=== PATIENT | male | born 1950 | race Caucasian/White ===

== ENCOUNTER → 2018-07-21 | Outpatient (CLI) | payer MEDICARE, BC ==
--- NOTE | 2018-07-21 14:42 | CARD ---
MR#: [id number] Date of Study: 07/21/2018 Ordering Physician: GARY COOMBS, Referring Physician: GARY COOMBS, Tech: Pia Goddard RAHUL APPROVED REPORT EXAM: Two-dimensional and M-mode echocardiogram with Doppler and color Doppler. Other Information Quality : Good INDICATION Light Headed 2D DIMENSIONS RVDd2.2 (2.9-3.5cm)Left Atrium(2D)3.8 (1.6-4.0cm) IVSd1.1 (0.7-1.1cm)Aortic Root(2D)3.1 (2.0-3.7cm) LVDd5.0 (3.9-5.9cm)LVOT Diameter2.0 (1.8-2.4cm) PWd1.0 (0.7-1.1cm)LVDs3.4 (2.5-4.0cm) FS (%) 31.7 %SV70.5 ml LVEF(%)59.4 (>50%) Aortic Valve AoV Peak Monty.156.0cm/sAoV VTI31.1cm AO Peak GR.9.7mmHgLVOT Peak Monty.133.2cm/s AO Mean GR.5mmHgAVA (VMAX)2.56cm2 DION (VTI)2.60cm2 Mitral Valve MV E Fcosnlpi37.3cm/sMV DECEL TNVY056mc MV A Rvxgijtf78.8cm/sE/A Ratio1.0 Tricuspid Valve TR P. Codcllzr013jo/sRAP CJUNIDUN0ryHx TR Peak Gr.96eyPzCXVB46psFy Pulmonary Vein S1 Zsvdihok85.0cm/sD2 Jehceukv48.5cm/s LEFT VENTRICLE The left ventricle is normal size. There is normal left ventricular wall thickness. The left ventricu lar systolic function is normal and the ejection fraction is within normal range. The Ejection Fracti on is 55-60%. There is normal LV segmental wall motion. Transmitral Doppler flow pattern is Grade I-a bnormal relaxation pattern. RIGHT VENTRICLE The right ventricle is normal size. The right ventricular systolic function is normal. ATRIA The left atrium size is normal. The right atrium size is normal. The interatrial septum is intact wit h no evidence for an atrial septal defect or patent foramen ovale as noted on 2-D or Doppler imaging. AORTIC VALVE The aortic valve is calcified but opens well. Doppler and Color Flow revealed no significant aortic r egurgitation. There is no significant aortic valvular stenosis. MITRAL VALVE The mitral valve is calcified but opens well. There is no evidence of mitral valve prolapse. There is no mitral valve stenosis. Doppler and Color Flow revealed no mitral valve regurgitation noted. TRICUSPID VALVE The tricuspid valve is normal in structure and function. Doppler and Color Flow revealed physiologica l tricuspid regurgitation. The PA pressure was estimated at 21 mmHg. There is no tricuspid valve sten osis. PULMONIC VALVE The pulmonic valve is not well visualized. Doppler and Color Flow revealed mild pulmonic valvular reg urgitation. There is no pulmonic valvular stenosis. GREAT VESSELS The aortic root is normal in size. The ascending aorta is normal in size. The IVC is normal in size a nd collapses >50% with inspiration. PERICARDIAL EFFUSION There is no evidence of significant pericardial effusion. Critical Notification Critical Value: No <Conclusion> The left ventricular systolic function is normal and the ejection fraction is within normal range. Th e Ejection Fraction is 55-60%. There is normal LV segmental wall motion. Signed by : Gary Coombs, Electronically Approved : 07/21/2018 14:41:40
== END | disposition home or self-care (01) ==
LOC: ECHO 13:10
PROVIDERS: ATTEND Internal Medicine Cardiovascular Disease
DX: R42 Dizziness and giddiness (principal)
CPT/HCPCS: 93306

== ENCOUNTER 2021-06-22 18:05 | Inpatient (IN) | payer MEDICARE, BC ==
[~2021-06-22] VITALS: Ht 172.7 cm; Wt 89.0 kg
[2021-06-22] MEDS ORDERED: methylPREDNISolone SOD SUCC PF 125 MG/2 ML VIAL. IV ONE (18:15)
[2021-06-22] MEDS ORDERED: ASPIRIN 325 MG TABLET PO ONE (18:15)
[2021-06-22] MEDS ORDERED: ONDANSETRON PF 4 MG/2 ML VIAL. ONE (18:20)
--- NOTE | 2021-06-22 18:21 | PHYS DOC ---
General Adult HPI: HPI: Patient is a 71-year-old male presenting for shortness of breath via EMS. Onset was 3 days ago. Nothing known makes better, physical activity makes worse. Patient's reports he has been "more confused than usual the last few days" without any trauma, falls, changes in home medication or other exposure. Pat ient has been more short of breath with a productive cough. There has been no known sick contacts but is concerned for COVID-19 especially because patient is unvaccinated. On arrival, patient denies being in any pain, just reports ongoing shortness of breath and cough Review of Systems: Review of Systems: Fourteen body systems of review of systems have been reviewed. See HPI for pertinent positives and negative responses, other villasenor all other systems are negative, non-pertinent or non-contributory Heart Score: C/O Chest Pain: No HEART Score for Chest Pain: HEART Score for Chest Pain Response (Comments) Value History Moderately Suspicious 1 ECG Normal 0 Age > 65 2 Risk Factors >3 Risk Factors or Hx CAD 2 Troponin < Normal Limit 0 Total 5 Risk Factors: Risk Factors: DM, Current or recent (<one month) smoker, HTN, HLP, family history of CAD, obesity. Risk Scores: Score 0 - 3: 2.5% MACE over next 6 weeks - Discharge Home Score 4 - 6: 20.3% MACE over next 6 weeks - Admit for Clinical Observation Score 7 - 10: 72.7% MACE over next 6 weeks - Early Invasive Strategies Physical Exam: PE: Constitutional: Age-appropriate, well nourished, moderate respiratory distress on arrival HENT: Normocephalic, atraumatic, bilateral external ears normal, oropharynx moist, no oral exudates, nose normal. Eyes: PERRLA, EOMI, conjunctiva normal, no discharge. Neck: Normal range of motion, no tenderness, supple, no stridor. Cardiovascular: Heart rate regular, sinus rhythm, no murmurs rubs or gallops Lungs & Thorax: Moderate respiratory distress without accessory muscle use. Patient is slightly tachypneic with gross rhonchi present globally Abdomen: Bowel sounds normal, soft, no tenderness, no masses, no pulsatile masses. Nonsurgical abdomen, no peritoneal signs Skin: Warm, dry, no erythema, no rash. Back: No tenderness, no CVA tenderness. Extremities: No tenderness, no cyanosis, no clubbing, ROM intact, no edema. Neurologic: Alert and oriented to person place but not time, cranial nerves II through XII intact, normal motor & sensory function, no focal deficits noted. Psychologic: Odd affect, mood normal, patient's responses appeared slowed Current Patient Data: Labs: Laboratory Tests Test 06/22/21 18:16 06/22/21 18:25 06/22/21 18:26 06/22/21 18:40 White Blood Count 8.1 x10^3/uL Red Blood Count 4.66 x10^6/uL Hemoglobin 14.6 g/dL Hematocrit 42.4 % Mean Corpuscular Volume 91 fL Mean Corpuscular Hemoglobin 31 pg Mean Corpuscular Hemoglobin Concent 35 g/dL Red Cell Distribution Width 13.9 % Platelet Count 149 x10^3/uL Neutrophils (%) (Auto) 84 % Lymphocytes (%) (Auto) 11 % Monocytes (%) (Auto) 5 % Eosinophils (%) (Auto) 0 % Basophils (%) (Auto) 0 % Neutrophils # (Auto) 6.8 x10^3/uL Lymphocytes # (Auto) 0.9 x10^3/uL Monocytes # (Auto) 0.4 x10^3/uL Eosinophils # (Auto) 0.0 x10^3/uL Basophils # (Auto) 0.0 x10^3/uL Sodium Level 138 mmol/L Potassium Level 3.9 mmol/L Chloride Level 101 mmol/L Carbon Dioxide Level 29 mmol/L Anion Gap 8 Blood Urea Nitrogen 14 mg/dL Creatinine 0.9 mg/dL Estimated GFR (Cockcroft-Gault) 82.7 BUN/Creatinine Ratio 16 Glucose Level 115 mg/dL Lactic Acid Level 1.3 mmol/L Calcium Level 8.5 mg/dL Total Bilirubin 0.8 mg/dL Aspartate Amino Transf (AST/SGOT) 118 U/L Alanine Aminotransferase (ALT/SGPT) 83 U/L Alkaline Phosphatase 57 U/L Troponin I Quantitative 0.017 ng/mL C-Reactive Protein, Quantitative 68.5 mg/L KY-Vpy-D-Type Natriuretic Peptide 211 pg/mL Total Protein 6.7 g/dL Albumin 2.9 g/dL Albumin/Globulin Ratio 0.8 Procalcitonin < 0.10 ng/mL O2 Saturation 97 % Arterial Blood pH 7.44 Arterial Blood pCO2 at Patient Temp 34 mmHg Arterial Blood pO2 at Patient Temp 95 mmHg Arterial Blood HCO3 23 mmol/L Arterial Blood Base Excess -1 mmol/L FiO2 100% nrb mask Bedside Venous pH 7.41 Bedside Venous pCO2 43 mmHg Bedside Venous pO2 38 mmHg Venous Blood HCO3 28 mmol/L POC Venous O2 Saturation (Sofía) 72 % Bedside FiO2 21.0 SARS-CoV-2 Antigen (Rapid) Positive Test 06/22/21 19:20 06/22/21 21:20 Urine Collection Type Void Urine Color Zonia Urine Clarity Clear Urine pH 6.0 Urine Specific Nabb >=1.030 Urine Protein 100 mg/dL Urine Glucose (UA) Negative mg/dL Urine Ketones (Stick) Negative mg/dL Urine Blood Small Urine Nitrite Negative Urine Bilirubin Negative Urine Urobilinogen Dipstick 1.0 mg/dL Urine Leukocyte Esterase Negative Urine RBC Rare /HPF Urine WBC Rare /HPF Urine Squamous Epithelial Cells Occ /LPF Urine Bacteria 0 /HPF Urine Mucus Slight /LPF D-Dimer (Cherie) 1.74 ug/mlFEU Current Medications Medications (Trade) Dose Ordered Sig/Beth Route PRN Reason Start Time Stop Time Status Last Admin Dose Admin Methylprednisolone Sodium Succinate (SOLU-Medrol 125MG VIAL) 125 mg 1X ONCE IV 06/22/21 18:15 06/22/21 18:24 DC 06/22/21 18:45 Aspirin (Dunia Aspirin) 325 mg 1X ONCE PO 06/22/21 18:15 06/22/21 18:24 DC 06/22/21 18:44 Ondansetron HCl (Zofran) 4 mg 1X ONCE IVP 06/22/21 18:30 06/22/21 18:31 DC 06/22/21 18:45 Ondansetron HCl (Zofran) 4 mg STK-MED ONCE .ROUTE 06/22/21 18:20 06/22/21 18:20 DC Iohexol (Omnipaque 350 Mg/ml) 100 ml 1X ONCE IV 06/22/21 18:45 06/22/21 18:53 DC 06/22/21 19:10 Info (CONTRAST GIVEN -- Rx MONITORING) 1 each PRN DAILY PRN MC SEE COMMENTS 06/22/21 19:00 06/24/21 18:59 Ceftriaxone Sodium (Rocephin) 1 gm 1X ONCE IVP 06/22/21 19:15 06/22/21 19:16 DC 06/22/21 20:17 Azithromycin 250 ml @ 250 mls/hr 1X ONCE IV 06/22/21 19:15 06/22/21 20:14 DC 06/22/21 20:20 Vital Signs: Vital Signs Date Time Temp Pulse Resp B/P (MAP) Pulse Ox O2 Delivery O2 Flow Rate FiO2 06/22/21 18:05 99.9 80 35 136/70 (92) 95 NonRebreather Mask 15.0 99.9 Vital Signs Date Time Temp Pulse Resp B/P (MAP) Pulse Ox O2 Delivery O2 Flow Rate FiO2 06/23/21 03:00 96.7 62 20 150/77 (101) 95 NonRebreather Mask 15.0 96.7 EKG: EKG: EKG ordered and interpreted by myself at 1817 hrs. as sinus rhythm at 78 bpm, unremarkable intervals, no axis deviation, no acute ischemic findings, no STEMI Radiology/Procedures: Radiology/Procedures: Exam: CT head INDICATION: Shortness of breath with hypoxia TECHNIQUE: Sequential axial images through the head were obtained without the administration of IV contrast. Exposure: One or more of the following in the visualized dose reduction techniques were utilized for this examination: 1. Automated exposure control 2. Adjustment of the MA and/or KV according to patient size 3. Use of iterative of reconstructive technique Comparisons: None FINDINGS: No focal parenchymal lesion or hemorrhage is identified. There is no midline shift or sulcal effacement. Mild small vessel schema change, technically age indeterminate without recent prior imaging. No acute vascular territory infarction is identified. Valenzuela-white distinction is preserved. The ventricular system is within normal limits without compression hydrocephalus. The basal cisterns are well maintained. The visualized portions of the paranasal sinuses and mastoid air cells are well-pneumatized. No acute fractures. IMPRESSION: Mild small vessel ischemic change, technically age indeterminate without recent prior imaging. Electronically signed by: Daniella Coello MD (06/22/2021 7:09 PM) [facility] /////////////////////////////// Exam: CT of chest with contrast INDICATION: Shortness of breath with hypoxia TECHNIQUE: Sequential axial images through the chest obtained following the administration of 100 mL of Omni 350 IV contrast. Sagittal and coronal reformatted images were reconstructed from the axial data and reviewed. 3-D reformatted images were reconstructed from the axial data and reviewed. Exposure: One or more of the following in the visualized dose reduction techniques were utilized for this examination: 1. Automated exposure control 2. Adjustment of the MA and/or KV according to patient size 3. Use of iterative of reconstructive technique Comparisons: Chest x-ray same day FINDINGS: Visualized portions of the thyroid are unremarkable. Numerous prominent mildly enlarged ascending lymph nodes are identified. Heart is enlarged. No pericardial effusion. Moderate coronary calcification. Thoracic aorta has a normal course and caliber. Pulmonary artery is not enlarged. No pulmonary embolus identified within the main, lobar or segmental pulmonary arteries. Airways are patent. No pneumothorax. Extensive ground glass opacity noted in lungs bilaterally predominantly in the periphery of the lungs. No suspicious lung nodules. No pleural effusion or thickening. Bilateral adrenal nodules are noted. No suspicious osseous lesions or acute fractures. IMPRESSION: 1. No pulmonary embolus identified within the main, lobar or segmental pulmonary arteries. 2. Extensive patchy ground glass opacity in lungs bilaterally. Infectious or inflammatory in etiology. Correlate for atypical/viral causes such as Covid Electronically signed by: Daniella Coello MD (06/22/2021 7:18 PM) [facility] /////////////////////// Course & Med Decision Making: Course & Med Decision Making Airway patent, moderate respiratory distress, IV access and vitals obtained concerning for slight tachypnea and hypoxia on room air HPI, physical exam and comprehensive ER work-up concerning for acute respiratory failure with hypoxia due to COVID-19 Patient also found to have bilateral adrenal nodules, likely nonsignificant presenting symptoms but will need to have further investigation I contacted hospitalist and reviewed need for hospital admission, patient accepted for admission I updated patient on proposed plan of care that included hospital admission and he was amenable. All findings disclosed to patient and over the phone. All questions and concerns addressed prior to hospital admission Venkatesh Disclaimer: Venkatesh Disclaimer: This electronic medical record was generated, in whole or in part, using a voice recognition dictation system. Departure Departure Impression: Primary Impression: COVID-19 Additional Impressions: Acute respiratory failure due to COVID-19 Adrenal nodule Disposition: ADMITTED INPATIENT Admitting Physician: ARMANI (DR RAMIREZ) Condition: STABLE Referrals: RAMSES LEE MD (PCP) TAWANDA ANDUJAR DO Jun 22, 2021 18:21
[2021-06-22 18:27] LABS: ISTAT BE VENOUS 3 mmol/L (0-3); ISTAT HCO3 VEN 28 mmol/L (24-28); ISTAT PCO2 VEN 43 mmHg (41-51); ISTAT PH VEN 7.41 (7.32-7.42); ISTAT PO2 VEN 38 mmHg (20-40); ISTAT SAT O2 VEN 72 %; ISTAT TCO2 VEN 29 mmol/L (21-32)
[2021-06-22] MEDS ORDERED: ONDANSETRON PF 4 MG/2 ML VIAL. IVP ONE (18:30)
[2021-06-22 18:32] LABS: BASO % 0 % (0-3); EOS % 0 % (0-3); HEMATOCRIT 42.4 % (39.0-53.0); HEMOGLOBIN 14.6 g/dL (13.0-17.5); LYMPH # 0.9 x10^3/uL (1.0-4.8); LYMPH % 11 % (24-48); MEAN CORPUSCULAR HEMOGLOBIN 31 pg (25-35); MEAN CORPUSCULAR HGB CONC 35 g/dL (31-37); MEAN CORPUSCULAR VOLUME 91 fL (79-100); MONO # 0.4 x10^3/uL (0.0-1.1); MONO % 5 % (0-9); NEUT # 6.8 x10^3/uL (1.8-7.7); NEUT % 84 % (31-73); PLATELET COUNT 149 x10^3/uL (140-400); RED BLOOD COUNT 4.66 x10^6/uL (4.30-5.70); RED CELL DISTRIBUTION WIDTH 13.9 % (11.5-14.5); WHITE BLOOD COUNT 8.1 x10^3/uL (4.0-11.0)
--- NOTE | 2021-06-22 18:32 | EKG ---
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
[2021-06-22 18:41] LABS: BASE EXCESS ABG -1 mmol/L (-3-3); HCO3 ABG 23 mmol/L (21-28); PCO2 ABG 34 mmHg (35-46); PO2 ABG 95 mmHg (65-108); SAT O2 ABG 97 % (92-99)
[2021-06-22 18:44] LABS: CALCIUM 8.5 mg/dL (8.5-10.1); CREATININE 0.9 mg/dL (0.7-1.3); GFR 82.7; POTASSIUM 3.9 mmol/L (3.5-5.1)
[2021-06-22 18:44] LABS: FIO2 ABG 100% NRB MASK
[2021-06-22] MEDS ORDERED: IOHEXOL 350 MG/ML 100 ML VIAL. IV ONE (18:45)
[2021-06-22 18:51] LABS: ALBUMIN 2.9 g/dL (3.4-5.0); ALBUMIN/GLOBULIN RATIO 0.8 (1.0-1.7); TOTAL BILIRUBIN 0.8 mg/dL (0.2-1.0); TOTAL PROTEIN 6.7 g/dL (6.4-8.2)
[2021-06-22] MEDS ORDERED: CONTRAST GIVEN. MC PRN (19:00)
--- NOTE | 2021-06-22 19:12 | RAD ---
Exam: CT head INDICATION: Shortness of breath with hypoxia TECHNIQUE: Sequential axial images through the head were obtained without the administration of IV co ntrast. Exposure: One or more of the following in the visualized dose reduction techniques were utilized for this examination: 1. Automated exposure control 2. Adjustment of the MA and/or KV according to patient size 3. Use of iterative of reconstructive technique Comparisons: None FINDINGS: No focal parenchymal lesion or hemorrhage is identified. There is no midline shift or sulcal effaceme nt. Mild small vessel schema change, technically age indeterminate without recent prior imaging. No acute vascular territory infarction is identified. Valenzuela-white distinction is preserved. The ventricular system is within normal limits without compression hydrocephalus. The basal cisterns are well maintained. The visualized portions of the paranasal sinuses and mastoid air cells are well-pneumatized. No acute fractures. IMPRESSION: Mild small vessel ischemic change, technically age indeterminate without recent prior imaging. Electronically signed by: Daniella Coello MD (06/22/2021 7:09 PM) [facility]
[2021-06-22] MEDS ORDERED: cefTRIAXone IV Push 1 GM VIAL. IVP ONE (19:15)
[2021-06-22] MEDS ORDERED: AZITHRMYCN 500MG IVPB FOR OMNI 250 ML IV ONE (19:15)
--- NOTE | 2021-06-22 19:20 | RAD ---
Exam: CT of chest with contrast INDICATION: Shortness of breath with hypoxia TECHNIQUE: Sequential axial images through the chest obtained following the administration of 100 mL of Omni 350 IV contrast. Sagittal and coronal reformatted images were reconstructed from the axial da ta and reviewed. 3-D reformatted images were reconstructed from the axial data and reviewed. Exposure: One or more of the following in the visualized dose reduction techniques were utilized for this examination: 1. Automated exposure control 2. Adjustment of the MA and/or KV according to patient size 3. Use of iterative of reconstructive technique Comparisons: Chest x-ray same day FINDINGS: Visualized portions of the thyroid are unremarkable. Numerous prominent mildly enlarged ascending lym ph nodes are identified. Heart is enlarged. No pericardial effusion. Moderate coronary calcification. Thoracic aorta has a nor mal course and caliber. Pulmonary artery is not enlarged. No pulmonary embolus identified within the main, lobar or segmental pulmonary arteries. Airways are patent. No pneumothorax. Extensive ground glass opacity noted in lungs bilaterally predom inantly in the periphery of the lungs. No suspicious lung nodules. No pleural effusion or thickening. Bilateral adrenal nodules are noted. No suspicious osseous lesions or acute fractures. IMPRESSION: 1. No pulmonary embolus identified within the main, lobar or segmental pulmonary arteries. 2. Extensive patchy ground glass opacity in lungs bilaterally. Infectious or inflammatory in etiolog y. Correlate for atypical/viral causes such as Covid Electronically signed by: Daniella Coello MD (06/22/2021 7:18 PM) [facility]
[2021-06-22 19:30] LABS: BILIRUBIN,URINE NEGATIVE (NEG); CLARITY,URINE CLEAR; COLOR,URINE AMBER; NITRITE,URINE NEGATIVE (NEG); PROTEIN,URINE 100 mg/dL (NEG-TRACE)
[2021-06-22 19:37] LABS: RBC,URINE RARE /HPF (0-2)
[2021-06-22 19:38] LABS: BACTERIA,URINE 0 /HPF (0-FEW); WBC,URINE RARE /HPF (0-4)
[2021-06-22] MEDS ORDERED: ZOLPIDEM 5 MG TABLET. PO PRN (19:45)
[2021-06-22] MEDS ORDERED: SENNOSIDES 8.6 MG TABLET PO PRN (19:45)
[2021-06-22] MEDS ORDERED: DOCUSATE SODIUM 100 MG CAPSULE. PO PRN (19:45)
[2021-06-22] MEDS ORDERED: ACETAMINOPHEN 325 MG TABLET. PO PRN ×2 (19:45)
[2021-06-22] MEDS ORDERED: ONDANSETRON PF 4 MG/2 ML VIAL. IVP PRN ×2 (19:45)
[2021-06-22] MEDS ORDERED: DEXTROSE 50% 25 GM / 50ML DISP.SYRIN. IV PRN (19:45)
[2021-06-22] MEDS ORDERED: NITROGLYCERIN SUBLINGUAL 0.4 MG BOTTLE OF 25. SL PRN (19:45)
[2021-06-22] MEDS ORDERED: PROCHLORPERAZINE 10 MG/2 ML VIAL. IV PRN (19:45)
--- NOTE | 2021-06-22 19:58 | RAD ---
Exam: Chest one view INDICATION: Shortness of breath with hypoxia TECHNIQUE: Frontal view of the chest Comparisons: None FINDINGS: The cardiomediastinal silhouette and pulmonary vessels are within normal limits. Extensive patchy bilateral airspace disease greater on the right. No pleural effusion. IMPRESSION: Extensive patchy bilateral airspace disease favored to be infectious or inflammatory in etiology. Electronically signed by: Daniella Coello MD (06/22/2021 7:56 PM) [facility]
[2021-06-22 20:50] VITALS: BP 158/74
[2021-06-22] MEDS: THIAMINE 100 MG TABLET. PO SCH (21:39)
[2021-06-22] MEDS: ASCORBIC ACID 1,000 MG TABLET PO SCH (21:39)
[2021-06-22] MEDS: ZINC SULFATE 220 MG CAPSULE. PO SCH (21:39)
[2021-06-22] MEDS: ENOXAPARIN 40 MG/0.4 ML SYRINGE. SQ SCH (21:39)
[2021-06-22] MEDS ORDERED: REMDESIVIR LOAD in IV NORMAL SALINE 250ML TV IV ONE (22:00)
[2021-06-22 23:00] VITALS: BP 123/72
[2021-06-23] MEDS ORDERED: TADA5TAB12 PO (00:01)
[2021-06-23] MEDS ORDERED: ATOR40TA59 PO (00:01)
[2021-06-23] MEDS ORDERED: TAMS0.4C97 PO (00:01)
[2021-06-23 03:00] VITALS: BP 150/77
--- NOTE | 2021-06-23 06:20 | PDOC1 ---
History and Physical Date of Admission Date of Admission DATE: 06/23/21 TIME: 06:07 Identification/Chief Complaint Chief Complaint Shortness of breath Source Source: Chart review, Patient History of Present Illness History of Present Illness Patient is a 71-year-old male with past medical history BPH, HLD, who presents to the ED with complaints of worsening shortness of breath over the past 3 days. He reports associated productive cough and lethargy. At home patient's was concerned due to worsening shortness of breath and noted confusion, so she brought him to the ED for further evaluation. On arrival he was hypoxic on room air, which improved to 95% with 15 L nonrebreather. Labs on admission showed CRP 68.5, AST 118, ALT 83, albumin 2.9, D-dimer 1.74. Chest x-ray showed extensive bilateral patchy airspace disease. CT head showed mild small vessel ischemic changes. CTA chest showed bilateral adrenal nodules, extensive bilateral patchy groundglass changes concerning for viral process, negative for PE. He received steroids and broad-spectrum IV antibiotics in ED. Will admit patient for further medical management. Past Medical History Past Medical History Reviewed with patient but denies significant past medical history Past Surgical History Past Surgical History: No pertinent history Family History Family History: Hypertension Social History Smoke: No ALCOHOL: none Drugs: None Current Problem List Problem List Problems Medical Problems: (1) Acute respiratory failure due to COVID-19 Status: Acute (2) Adrenal nodule Status: Acute (3) COVID-19 Status: Acute Current Medications Current Medications Current Medications Methylprednisolone Sodium Succinate (SOLU-Medrol 125MG VIAL) 125 mg 1X ONCE IV Last administered on 06/22/21at 18:45; Start 06/22/21 at 18:15; Stop 06/22/21 at 18:24; Status DC Aspirin (Dunia Aspirin) 325 mg 1X ONCE PO Last administered on 06/22/21at 18:44; Start 06/22/21 at 18:15; Stop 06/22/21 at 18:24; Status DC Ondansetron HCl (Zofran) 4 mg 1X ONCE IVP Last administered on 06/22/21at 18:45; Start 06/22/21 at 18:30; Stop 06/22/21 at 18:31; Status DC Ondansetron HCl (Zofran) 4 mg STK-MED ONCE .ROUTE ; Start 06/22/21 at 18:20; Stop 06/22/21 at 18:20; Status DC Iohexol (Omnipaque 350 Mg/ml) 100 ml 1X ONCE IV Last administered on 06/22/21at 19:10; Start 06/22/21 at 18:45; Stop 06/22/21 at 18:53; Status DC Info (CONTRAST GIVEN -- Rx MONITORING) 1 each PRN DAILY PRN MC SEE COMMENTS; Start 06/22/21 at 19:00; Stop 06/24/21 at 18:59 Ceftriaxone Sodium (Rocephin) 1 gm 1X ONCE IVP Last administered on 06/22/21at 20:17; Start 06/22/21 at 19:15; Stop 06/22/21 at 19:16; Status DC Azithromycin 250 ml @ 250 mls/hr 1X ONCE IV Last administered on 06/22/21at 20:20; Start 06/22/21 at 19:15; Stop 06/22/21 at 20:14; Status DC Remdesivir 200 mg/ Sodium Chloride 210 ml @ 210 mls/hr 1X ONCE IV Last administered on 06/22/21at 22:21; Start 06/22/21 at 22:00; Stop 06/22/21 at 22:59; Status DC Remdesivir 100 mg/ Sodium Chloride 230 ml @ 460 mls/hr Q24H IV ; Start 06/23/21 at 22:00; Stop 06/26/21 at 22:29 Ascorbic Acid (Vitamin C) 3,000 mg TID PO Last administered on 06/22/21at 21:39; Start 06/22/21 at 21:00 Thiamine Mononitrate (Vitamin B-1) 300 mg DAILY PO Last administered on 06/22/21at 21:39; Start 06/22/21 at 21:00 Zinc Sulfate (Orazinc) 220 mg DAILY PO Last administered on 06/22/21at 21:39; Start 06/22/21 at 21:00 Dexamethasone Sodium Phosphate (Decadron) 6 mg DAILY IVP ; Start 06/23/21 at 09:00 Sennosides (Senna) 17.2 mg PRN BID PRN PO CONSTIPATION; Start 06/22/21 at 19:45 Docusate Sodium (Colace) 100 mg PRN DAILY PRN PO HARD STOOLS; Start 06/22/21 at 19:45 Ondansetron HCl (Zofran) 4 mg PRN Q6HRS PRN IVP NAUSEA/VOMITING; Start 06/22/21 at 19:45 Dextrose (Dextrose 50%-Water Syringe) 12.5 gm PRN Q15MIN PRN IV SEE COMMENTS; Start 06/22/21 at 19:45 Acetaminophen (Tylenol) 650 mg PRN Q4HRS PRN PO TEMP OVER 100.4F OR MILD PAIN Last administered on 06/23/21at 00:22; Start 06/22/21 at 19:45 Lorazepam (Ativan) 0.5 mg PRN Q6HRS PRN PO ANXIETY / AGITATION; Start 06/22/21 at 19:45 Lorazepam (Ativan Inj) 0.25 mg PRN Q4HRS PRN IV ANXIETY / AGITATION; Start 06/22/21 at 19:45 Enoxaparin Sodium (Lovenox 40mg Syringe) 40 mg Q24H SQ Last administered on 06/22/21at 21:39; Start 06/22/21 at 21:00 Pantoprazole Sodium (PROTONIX VIAL for IV PUSH) 40 mg DAILYAC IVP ; Start 06/23/21 at 07:30 Prochlorperazine Edisylate (Compazine) 10 mg PRN Q6HRS PRN IV NAUSEA/VOMITING - 2ND CHOICE; Start 06/22/21 at 19:45 Zolpidem Tartrate (Ambien) 2.5 mg PRN QHS PRN PO INSOMNIA; Start 06/22/21 at 19:45 Ondansetron HCl (Zofran) 4 mg PRN Q8HRS PRN IVP NAUSEA/VOMITING; Start 06/22/21 at 19:45; Stop 06/23/21 at 19:44 Acetaminophen (Tylenol) 650 mg PRN Q4HRS PRN PO FEVER > 100.3'F; Start 06/22/21 at 19:45; Stop 06/23/21 at 19:44 Nitroglycerin (Nitrostat) 0.4 mg PRN Q5MIN PRN SL CHEST PAIN; Start 06/22/21 at 19:45; Stop 06/23/21 at 19:44 Active Scripts Active Reported Tadalafil 5 Mg Tablet 5 Mg PO DAILY Flomax (Tamsulosin Hcl) 0.4 Mg Cap.er.24h 0.4 Mg PO HS Atorvastatin Calcium 40 Mg Tablet 40 Mg PO HS Allergies Allergies: Coded Allergies: No Known Drug Allergies (Unverified , 06/22/21) ROS Review of System GENERAL: No history of weight change, weakness or fevers. SKIN: No bruising, hair changes or rashes. EYES: No blurred, double or loss of vision. NOSE AND THROAT: No history of nosebleeds, hoarseness or sore throat. HEART: Denies chest pain, denies palpitations. LUNGS: Cough and shortness of breath. Denies hemoptysis or wheezing. GASTROINTESTINAL: Denies nausea, vomiting, abdominal pain. GENITOURINARY: Denies dysuria, frequency, urgency, hematuria. NEUROLOGIC: Denies history of numbness, tingling, tremor or weakness. PSYCHIATRIC: Denies anxiety, denies depression. ENDOCRINE: No history of heat or cold intolerance, polyuria or polydipsia. EXTREMITIES: Denies muscle weakness, joint pain, pain on walking or stiffness. Physical Exam Physical Exam General: Alert, Oriented X3, Cooperative, mild distress HEENT: PERRLA, EOMI Lungs: Decreased breath sounds bilaterally. Normal air movement Heart: RRR, no murmurs Cardiovascular: S1, S2 Abdomen: Normal bowel sounds, Soft, No tenderness Extremities: No clubbing, No cyanosis Skin: No rashes, No significant lesion Neuro: Normal speech, Normal tone, Sensation intact Psych/Mental Status: Mental status NL, Mood NL Vitals Vitals Vital Signs Date Time Temp Pulse Resp B/P (MAP) Pulse Ox O2 Delivery O2 Flow Rate FiO2 06/23/21 03:00 96.7 62 20 150/77 (101) 95 NonRebreather Mask 15.0 96.7 Labs Labs Laboratory Tests Test 06/22/21 18:16 06/22/21 18:25 06/22/21 18:26 06/22/21 18:40 White Blood Count 8.1 x10^3/uL (4.0-11.0) Red Blood Count 4.66 x10^6/uL (4.30-5.70) Hemoglobin 14.6 g/dL (13.0-17.5) Hematocrit 42.4 % (39.0-53.0) Mean Corpuscular Volume 91 fL (79-100) Mean Corpuscular Hemoglobin 31 pg (25-35) Mean Corpuscular Hemoglobin Concent 35 g/dL (31-37) Red Cell Distribution Width 13.9 % (11.5-14.5) Platelet Count 149 x10^3/uL (140-400) Neutrophils (%) (Auto) 84 % (31-73) Lymphocytes (%) (Auto) 11 % (24-48) Monocytes (%) (Auto) 5 % (0-9) Eosinophils (%) (Auto) 0 % (0-3) Basophils (%) (Auto) 0 % (0-3) Neutrophils # (Auto) 6.8 x10^3/uL (1.8-7.7) Lymphocytes # (Auto) 0.9 x10^3/uL (1.0-4.8) Monocytes # (Auto) 0.4 x10^3/uL (0.0-1.1) Eosinophils # (Auto) 0.0 x10^3/uL (0.0-0.7) Basophils # (Auto) 0.0 x10^3/uL (0.0-0.2) Sodium Level 138 mmol/L (136-145) Potassium Level 3.9 mmol/L (3.5-5.1) Chloride Level 101 mmol/L (98-107) Carbon Dioxide Level 29 mmol/L (21-32) Anion Gap 8 (6-14) Blood Urea Nitrogen 14 mg/dL (8-26) Creatinine 0.9 mg/dL (0.7-1.3) Estimated GFR (Cockcroft-Gault) 82.7 BUN/Creatinine Ratio 16 (6-20) Glucose Level 115 mg/dL (70-99) Lactic Acid Level 1.3 mmol/L (0.4-2.0) Calcium Level 8.5 mg/dL (8.5-10.1) Total Bilirubin 0.8 mg/dL (0.2-1.0) Aspartate Amino Transf (AST/SGOT) 118 U/L (15-37) Alanine Aminotransferase (ALT/SGPT) 83 U/L (16-63) Alkaline Phosphatase 57 U/L (46-116) Troponin I Quantitative 0.017 ng/mL (0.000-0.055) C-Reactive Protein, Quantitative 68.5 mg/L (0-3.3) NA-Qfp-C-Type Natriuretic Peptide 211 pg/mL (0-124) Total Protein 6.7 g/dL (6.4-8.2) Albumin 2.9 g/dL (3.4-5.0) Albumin/Globulin Ratio 0.8 (1.0-1.7) Procalcitonin < 0.10 ng/mL (0.00-0.10) O2 Saturation 97 % (92-99) Arterial Blood pH 7.44 (7.35-7.45) Arterial Blood pCO2 at Patient Temp 34 mmHg (35-46) Arterial Blood pO2 at Patient Temp 95 mmHg (65-108) Arterial Blood HCO3 23 mmol/L (21-28) Arterial Blood Base Excess -1 mmol/L (-3-3) FiO2 100% nrb mask Bedside Venous pH 7.41 (7.32-7.42) Bedside Venous pCO2 43 mmHg (41-51) Bedside Venous pO2 38 mmHg (20-40) Venous Blood HCO3 28 mmol/L (24-28) POC Venous O2 Saturation (Sofía) 72 % Bedside FiO2 21.0 SARS-CoV-2 Antigen (Rapid) Positive (NEGATIVE) Test 06/22/21 19:20 06/22/21 21:20 Urine Collection Type Void Urine Color Zonia Urine Clarity Clear Urine pH 6.0 (<5.0-8.0) Urine Specific [place] >=1.030 (1.000-1.030) Urine Protein 100 mg/dL (NEG-TRACE) Urine Glucose (UA) Negative mg/dL (NEG) Urine Ketones (Stick) Negative mg/dL (NEG) Urine Blood Small (NEG) Urine Nitrite Negative (NEG) Urine Bilirubin Negative (NEG) Urine Urobilinogen Dipstick 1.0 mg/dL (0.2 mg/dL) Urine Leukocyte Esterase Negative (NEG) Urine RBC Rare /HPF (0-2) Urine WBC Rare /HPF (0-4) Urine Squamous Epithelial Cells Occ /LPF Urine Bacteria 0 /HPF (0-FEW) Urine Mucus Slight /LPF D-Dimer (Cherie) 1.74 ug/mlFEU (0.00-0.50) Laboratory Tests Test 06/22/21 18:16 06/22/21 18:25 06/22/21 18:26 06/22/21 18:40 White Blood Count 8.1 x10^3/uL (4.0-11.0) Red Blood Count 4.66 x10^6/uL (4.30-5.70) Hemoglobin 14.6 g/dL (13.0-17.5) Hematocrit 42.4 % (39.0-53.0) Mean Corpuscular Volume 91 fL (79-100) Mean Corpuscular Hemoglobin 31 pg (25-35) Mean Corpuscular Hemoglobin Concent 35 g/dL (31-37) Red Cell Distribution Width 13.9 % (11.5-14.5) Platelet Count 149 x10^3/uL (140-400) Neutrophils (%) (Auto) 84 % (31-73) Lymphocytes (%) (Auto) 11 % (24-48) Monocytes (%) (Auto) 5 % (0-9) Eosinophils (%) (Auto) 0 % (0-3) Basophils (%) (Auto) 0 % (0-3) Neutrophils # (Auto) 6.8 x10^3/uL (1.8-7.7) Lymphocytes # (Auto) 0.9 x10^3/uL (1.0-4.8) Monocytes # (Auto) 0.4 x10^3/uL (0.0-1.1) Eosinophils # (Auto) 0.0 x10^3/uL (0.0-0.7) Basophils # (Auto) 0.0 x10^3/uL (0.0-0.2) Sodium Level 138 mmol/L (136-145) Potassium Level 3.9 mmol/L (3.5-5.1) Chloride Level 101 mmol/L (98-107) Carbon Dioxide Level 29 mmol/L (21-32) Anion Gap 8 (6-14) Blood Urea Nitrogen 14 mg/dL (8-26) Creatinine 0.9 mg/dL (0.7-1.3) Estimated GFR (Cockcroft-Gault) 82.7 BUN/Creatinine Ratio 16 (6-20) Glucose Level 115 mg/dL (70-99) Lactic Acid Level 1.3 mmol/L (0.4-2.0) Calcium Level 8.5 mg/dL (8.5-10.1) Total Bilirubin 0.8 mg/dL (0.2-1.0) Aspartate Amino Transf (AST/SGOT) 118 U/L (15-37) Alanine Aminotransferase (ALT/SGPT) 83 U/L (16-63) Alkaline Phosphatase 57 U/L (46-116) Troponin I Quantitative 0.017 ng/mL (0.000-0.055) C-Reactive Protein, Quantitative 68.5 mg/L (0-3.3) FD-Qyo-O-Type Natriuretic Peptide 211 pg/mL (0-124) Total Protein 6.7 g/dL (6.4-8.2) Albumin 2.9 g/dL (3.4-5.0) Albumin/Globulin Ratio 0.8 (1.0-1.7) Procalcitonin < 0.10 ng/mL (0.00-0.10) O2 Saturation 97 % (92-99) Arterial Blood pH 7.44 (7.35-7.45) Arterial Blood pCO2 at Patient Temp 34 mmHg (35-46) Arterial Blood pO2 at Patient Temp 95 mmHg (65-108) Arterial Blood HCO3 23 mmol/L (21-28) Arterial Blood Base Excess -1 mmol/L (-3-3) FiO2 100% nrb mask Bedside Venous pH 7.41 (7.32-7.42) Bedside Venous pCO2 43 mmHg (41-51) Bedside Venous pO2 38 mmHg (20-40) Venous Blood HCO3 28 mmol/L (24-28) POC Venous O2 Saturation (Sofía) 72 % Bedside FiO2 21.0 SARS-CoV-2 Antigen (Rapid) Positive (NEGATIVE) Test 06/22/21 19:20 06/22/21 21:20 Urine Collection Type Void Urine Color Zonia Urine Clarity Clear Urine pH 6.0 (<5.0-8.0) Urine Specific [place] >=1.030 (1.000-1.030) Urine Protein 100 mg/dL (NEG-TRACE) Urine Glucose (UA) Negative mg/dL (NEG) Urine Ketones (Stick) Negative mg/dL (NEG) Urine Blood Small (NEG) Urine Nitrite Negative (NEG) Urine Bilirubin Negative (NEG) Urine Urobilinogen Dipstick 1.0 mg/dL (0.2 mg/dL) Urine Leukocyte Esterase Negative (NEG) Urine RBC Rare /HPF (0-2) Urine WBC Rare /HPF (0-4) Urine Squamous Epithelial Cells Occ /LPF Urine Bacteria 0 /HPF (0-FEW) Urine Mucus Slight /LPF D-Dimer (Cherie) 1.74 ug/mlFEU (0.00-0.50) Images Images PATIENT: KEEGAN CAMEJO ACCOUNT: [id number] : 1950 LOCATION: ER AGE: 71 SEX: M EXAM STATUS: REG ER ORD. PHYSICIAN: TAWANDA ANDUJAR DO REASON: shob with hypoxia PROCEDURE: PORTABLE CHEST 1V Exam: Chest one view INDICATION: Shortness of breath with hypoxia TECHNIQUE: Frontal view of the chest Comparisons: None FINDINGS: The cardiomediastinal silhouette and pulmonary vessels are within normal limits. Extensive patchy bilateral airspace disease greater on the right. No pleural effusion. IMPRESSION: Extensive patchy bilateral airspace disease favored to be infectious or inflammatory in etiology. PATIENT: KEEGAN CAMEJO ACCOUNT: [id number] : 1950 LOCATION: ER AGE: 71 SEX: M EXAM STATUS: PRE ER ORD. PHYSICIAN: TAWANDA ANDUJAR DO REASON: shob with hypoxia PROCEDURE: CT HEAD WO CONTRAST Exam: CT head INDICATION: Shortness of breath with hypoxia TECHNIQUE: Sequential axial images through the head were obtained without the administration of IV contrast. Exposure: One or more of the following in the visualized dose reduction techniques were utilized for this examination: 1. Automated exposure control 2. Adjustment of the MA and/or KV according to patient size 3. Use of iterative of reconstructive technique Comparisons: None FINDINGS: No focal parenchymal lesion or hemorrhage is identified. There is no midline shift or sulcal effacement. Mild small vessel schema change, technically age indeterminate without recent prior imaging. No acute vascular territory infarction is identified. Valenzuela-white distinction is preserved. The ventricular system is within normal limits without compression hydroce phalus. The basal cisterns are well maintained. The visualized portions of the paranasal sinuses and mastoid air cells are well- pneumatized. No acute fractures. IMPRESSION: Mild small vessel ischemic change, technically age indeterminate without recent prior imaging. VTE Prophylaxis Ordered VTE Prophylaxis Devices: No VTE Pharmacological Prophylaxi: Yes Assessment/Plan Assessment/Plan Acute respiratory failure with hypoxia COVID-19 pneumonia Bilateral adrenal nodules Plan: Consultation placed to pulmonology We will continue treatment with remdesivir and Decadron We will closely monitor LFTs Empiric antibiotics Supportive care, vitamin C. Resume home medications FEN - Cardiac diet PPX - Lovenox DNR Dispo - inpatient for above Surrogate decision maker is his (Jordan Camejo) Justifications for Admission Other Justification ERIK LIU MD Jun 23, 2021 06:20
[2021-06-23] MEDS ORDERED: hydrALAZINE 20 MG/ML VIAL. IVP PRN (06:30)
[2021-06-23] MEDS ORDERED: traMADol 50 MG TABLET PO PRN (06:30)
[2021-06-23 07:00] VITALS: BP 147/102
[2021-06-23 07:16] LABS: CALCIUM 8.3 mg/dL (8.5-10.1); CREATININE 0.7 mg/dL (0.7-1.3); GFR 110.5; PHOSPHORUS 3.4 mg/dL (2.6-4.7); POTASSIUM 3.7 mmol/L (3.5-5.1)
[2021-06-23 07:20] LABS: BASO % 0 % (0-3); EOS % 0 % (0-3); HEMATOCRIT 43.1 % (39.0-53.0); HEMOGLOBIN 14.9 g/dL (13.0-17.5); LYMPH # 0.9 x10^3/uL (1.0-4.8); LYMPH % 15 % (24-48); MEAN CORPUSCULAR HEMOGLOBIN 31 pg (25-35); MEAN CORPUSCULAR HGB CONC 35 g/dL (31-37); MEAN CORPUSCULAR VOLUME 91 fL (79-100); MONO # 0.2 x10^3/uL (0.0-1.1); MONO % 4 % (0-9); NEUT # 4.8 x10^3/uL (1.8-7.7); NEUT % 81 % (31-73); PLATELET COUNT 157 x10^3/uL (140-400); RED BLOOD COUNT 4.74 x10^6/uL (4.30-5.70); RED CELL DISTRIBUTION WIDTH 13.9 % (11.5-14.5); WHITE BLOOD COUNT 5.9 x10^3/uL (4.0-11.0)
[2021-06-23 07:28] LABS: ALBUMIN 2.7 g/dL (3.4-5.0); DIRECT BILIRUBIN 0.3 mg/dL (0.0-0.2); TOTAL BILIRUBIN 0.5 mg/dL (0.2-1.0)
--- NOTE | 2021-06-23 08:08 | PDOC ---
PULMONARY PROGRESS NOTES DATE: 06/23/21 TIME: 08:08 Vitals Vital Signs Date Time Temp Pulse Resp B/P (MAP) Pulse Ox O2 Delivery O2 Flow Rate FiO2 06/23/21 07:00 97.5 57 17 147/102 (117) 96 Nasal Cannula 8.0 97.5 Labs Laboratory Tests Test 06/22/21 18:16 06/22/21 18:25 06/22/21 18:26 06/22/21 18:40 White Blood Count 8.1 x10^3/uL (4.0-11.0) Red Blood Count 4.66 x10^6/uL (4.30-5.70) Hemoglobin 14.6 g/dL (13.0-17.5) Hematocrit 42.4 % (39.0-53.0) Mean Corpuscular Volume 91 fL (79-100) Mean Corpuscular Hemoglobin 31 pg (25-35) Mean Corpuscular Hemoglobin Concent 35 g/dL (31-37) Red Cell Distribution Width 13.9 % (11.5-14.5) Platelet Count 149 x10^3/uL (140-400) Neutrophils (%) (Auto) 84 % (31-73) Lymphocytes (%) (Auto) 11 % (24-48) Monocytes (%) (Auto) 5 % (0-9) Eosinophils (%) (Auto) 0 % (0-3) Basophils (%) (Auto) 0 % (0-3) Neutrophils # (Auto) 6.8 x10^3/uL (1.8-7.7) Lymphocytes # (Auto) 0.9 x10^3/uL (1.0-4.8) Monocytes # (Auto) 0.4 x10^3/uL (0.0-1.1) Eosinophils # (Auto) 0.0 x10^3/uL (0.0-0.7) Basophils # (Auto) 0.0 x10^3/uL (0.0-0.2) Sodium Level 138 mmol/L (136-145) Potassium Level 3.9 mmol/L (3.5-5.1) Chloride Level 101 mmol/L (98-107) Carbon Dioxide Level 29 mmol/L (21-32) Anion Gap 8 (6-14) Blood Urea Nitrogen 14 mg/dL (8-26) Creatinine 0.9 mg/dL (0.7-1.3) Estimated GFR (Cockcroft-Gault) 82.7 BUN/Creatinine Ratio 16 (6-20) Glucose Level 115 mg/dL (70-99) Lactic Acid Level 1.3 mmol/L (0.4-2.0) Calcium Level 8.5 mg/dL (8.5-10.1) Total Bilirubin 0.8 mg/dL (0.2-1.0) Aspartate Amino Transf (AST/SGOT) 118 U/L (15-37) Alanine Aminotransferase (ALT/SGPT) 83 U/L (16-63) Alkaline Phosphatase 57 U/L (46-116) Troponin I Quantitative 0.017 ng/mL (0.000-0.055) C-Reactive Protein, Quantitative 68.5 mg/L (0-3.3) EV-Tmn-D-Type Natriuretic Peptide 211 pg/mL (0-124) Total Protein 6.7 g/dL (6.4-8.2) Albumin 2.9 g/dL (3.4-5.0) Albumin/Globulin Ratio 0.8 (1.0-1.7) Procalcitonin < 0.10 ng/mL (0.00-0.10) O2 Saturation 97 % (92-99) Arterial Blood pH 7.44 (7.35-7.45) Arterial Blood pCO2 at Patient Temp 34 mmHg (35-46) Arterial Blood pO2 at Patient Temp 95 mmHg (65-108) Arterial Blood HCO3 23 mmol/L (21-28) Arterial Blood Base Excess -1 mmol/L (-3-3) FiO2 100% nrb mask Bedside Venous pH 7.41 (7.32-7.42) Bedside Venous pCO2 43 mmHg (41-51) Bedside Venous pO2 38 mmHg (20-40) Venous Blood HCO3 28 mmol/L (24-28) POC Venous O2 Saturation (Sofía) 72 % Bedside FiO2 21.0 SARS-CoV-2 Antigen (Rapid) Positive (NEGATIVE) Test 06/22/21 19:20 06/22/21 21:20 06/23/21 06:00 Urine Collection Type Void Urine Color Zonia Urine Clarity Clear Urine pH 6.0 (<5.0-8.0) Urine Specific [place] >=1.030 (1.000-1.030) Urine Protein 100 mg/dL (NEG-TRACE) Urine Glucose (UA) Negative mg/dL (NEG) Urine Ketones (Stick) Negative mg/dL (NEG) Urine Blood Small (NEG) Urine Nitrite Negative (NEG) Urine Bilirubin Negative (NEG) Urine Urobilinogen Dipstick 1.0 mg/dL (0.2 mg/dL) Urine Leukocyte Esterase Negative (NEG) Urine RBC Rare /HPF (0-2) Urine WBC Rare /HPF (0-4) Urine Squamous Epithelial Cells Occ /LPF Urine Bacteria 0 /HPF (0-FEW) Urine Mucus Slight /LPF D-Dimer (Cherie) 1.74 ug/mlFEU (0.00-0.50) White Blood Count 5.9 x10^3/uL (4.0-11.0) Red Blood Count 4.74 x10^6/uL (4.30-5.70) Hemoglobin 14.9 g/dL (13.0-17.5) Hematocrit 43.1 % (39.0-53.0) Mean Corpuscular Volume 91 fL (79-100) Mean Corpuscular Hemoglobin 31 pg (25-35) Mean Corpuscular Hemoglobin Concent 35 g/dL (31-37) Red Cell Distribution Width 13.9 % (11.5-14.5) Platelet Count 157 x10^3/uL (140-400) Neutrophils (%) (Auto) 81 % (31-73) Lymphocytes (%) (Auto) 15 % (24-48) Monocytes (%) (Auto) 4 % (0-9) Eosinophils (%) (Auto) 0 % (0-3) Basophils (%) (Auto) 0 % (0-3) Neutrophils # (Auto) 4.8 x10^3/uL (1.8-7.7) Lymphocytes # (Auto) 0.9 x10^3/uL (1.0-4.8) Monocytes # (Auto) 0.2 x10^3/uL (0.0-1.1) Eosinophils # (Auto) 0.0 x10^3/uL (0.0-0.7) Basophils # (Auto) 0.0 x10^3/uL (0.0-0.2) Sodium Level 139 mmol/L (136-145) Potassium Level 3.7 mmol/L (3.5-5.1) Chloride Level 102 mmol/L (98-107) Carbon Dioxide Level 28 mmol/L (21-32) Anion Gap 9 (6-14) Blood Urea Nitrogen 18 mg/dL (8-26) Creatinine 0.7 mg/dL (0.7-1.3) Estimated GFR (Cockcroft-Gault) 110.5 Glucose Level 147 mg/dL (70-99) Calcium Level 8.3 mg/dL (8.5-10.1) Phosphorus Level 3.4 mg/dL (2.6-4.7) Magnesium Level 2.0 mg/dL (1.8-2.4) Total Bilirubin 0.5 mg/dL (0.2-1.0) Direct Bilirubin 0.3 mg/dL (0.0-0.2) Aspartate Amino Transf (AST/SGOT) 100 U/L (15-37) Alanine Aminotransferase (ALT/SGPT) 81 U/L (16-63) Alkaline Phosphatase 55 U/L (46-116) Total Protein 6.0 g/dL (6.4-8.2) Albumin 2.7 g/dL (3.4-5.0) Laboratory Tests Test 06/22/21 18:16 06/22/21 18:25 06/22/21 18:26 06/22/21 18:40 White Blood Count 8.1 x10^3/uL (4.0-11.0) Red Blood Count 4.66 x10^6/uL (4.30-5.70) Hemoglobin 14.6 g/dL (13.0-17.5) Hematocrit 42.4 % (39.0-53.0) Mean Corpuscular Volume 91 fL (79-100) Mean Corpuscular Hemoglobin 31 pg (25-35) Mean Corpuscular Hemoglobin Concent 35 g/dL (31-37) Red Cell Distribution Width 13.9 % (11.5-14.5) Platelet Count 149 x10^3/uL (140-400) Neutrophils (%) (Auto) 84 % (31-73) Lymphocytes (%) (Auto) 11 % (24-48) Monocytes (%) (Auto) 5 % (0-9) Eosinophils (%) (Auto) 0 % (0-3) Basophils (%) (Auto) 0 % (0-3) Neutrophils # (Auto) 6.8 x10^3/uL (1.8-7.7) Lymphocytes # (Auto) 0.9 x10^3/uL (1.0-4.8) Monocytes # (Auto) 0.4 x10^3/uL (0.0-1.1) Eosinophils # (Auto) 0.0 x10^3/uL (0.0-0.7) Basophils # (Auto) 0.0 x10^3/uL (0.0-0.2) Sodium Level 138 mmol/L (136-145) Potassium Level 3.9 mmol/L (3.5-5.1) Chloride Level 101 mmol/L (98-107) Carbon Dioxide Level 29 mmol/L (21-32) Anion Gap 8 (6-14) Blood Urea Nitrogen 14 mg/dL (8-26) Creatinine 0.9 mg/dL (0.7-1.3) Estimated GFR (Cockcroft-Gault) 82.7 BUN/Creatinine Ratio 16 (6-20) Glucose Level 115 mg/dL (70-99) Lactic Acid Level 1.3 mmol/L (0.4-2.0) Calcium Level 8.5 mg/dL (8.5-10.1) Total Bilirubin 0.8 mg/dL (0.2-1.0) Aspartate Amino Transf (AST/SGOT) 118 U/L (15-37) Alanine Aminotransferase (ALT/SGPT) 83 U/L (16-63) Alkaline Phosphatase 57 U/L (46-116) Troponin I Quantitative 0.017 ng/mL (0.000-0.055) C-Reactive Protein, Quantitative 68.5 mg/L (0-3.3) HK-Lmq-K-Type Natriuretic Peptide 211 pg/mL (0-124) Total Protein 6.7 g/dL (6.4-8.2) Albumin 2.9 g/dL (3.4-5.0) Albumin/Globulin Ratio 0.8 (1.0-1.7) Procalcitonin < 0.10 ng/mL (0.00-0.10) O2 Saturation 97 % (92-99) Arterial Blood pH 7.44 (7.35-7.45) Arterial Blood pCO2 at Patient Temp 34 mmHg (35-46) Arterial Blood pO2 at Patient Temp 95 mmHg (65-108) Arterial Blood HCO3 23 mmol/L (21-28) Arterial Blood Base Excess -1 mmol/L (-3-3) FiO2 100% nrb mask Bedside Venous pH 7.41 (7.32-7.42) Bedside Venous pCO2 43 mmHg (41-51) Bedside Venous pO2 38 mmHg (20-40) Venous Blood HCO3 28 mmol/L (24-28) POC Venous O2 Saturation (Sofía) 72 % Bedside FiO2 21.0 SARS-CoV-2 Antigen (Rapid) Positive (NEGATIVE) Test 06/22/21 19:20 06/22/21 21:20 06/23/21 06:00 Urine Collection Type Void Urine Color Zonia Urine Clarity Clear Urine pH 6.0 (<5.0-8.0) Urine Specific [place] >=1.030 (1.000-1.030) Urine Protein 100 mg/dL (NEG-TRACE) Urine Glucose (UA) Negative mg/dL (NEG) Urine Ketones (Stick) Negative mg/dL (NEG) Urine Blood Small (NEG) Urine Nitrite Negative (NEG) Urine Bilirubin Negative (NEG) Urine Urobilinogen Dipstick 1.0 mg/dL (0.2 mg/dL) Urine Leukocyte Esterase Negative (NEG) Urine RBC Rare /HPF (0-2) Urine WBC Rare /HPF (0-4) Urine Squamous Epithelial Cells Occ /LPF Urine Bacteria 0 /HPF (0-FEW) Urine Mucus Slight /LPF D-Dimer (Cherie) 1.74 ug/mlFEU (0.00-0.50) White Blood Count 5.9 x10^3/uL (4.0-11.0) Red Blood Count 4.74 x10^6/uL (4.30-5.70) Hemoglobin 14.9 g/dL (13.0-17.5) Hematocrit 43.1 % (39.0-53.0) Mean Corpuscular Volume 91 fL (79-100) Mean Corpuscular Hemoglobin 31 pg (25-35) Mean Corpuscular Hemoglobin Concent 35 g/dL (31-37) Red Cell Distribution Width 13.9 % (11.5-14.5) Platelet Count 157 x10^3/uL (140-400) Neutrophils (%) (Auto) 81 % (31-73) Lymphocytes (%) (Auto) 15 % (24-48) Monocytes (%) (Auto) 4 % (0-9) Eosinophils (%) (Auto) 0 % (0-3) Basophils (%) (Auto) 0 % (0-3) Neutrophils # (Auto) 4.8 x10^3/uL (1.8-7.7) Lymphocytes # (Auto) 0.9 x10^3/uL (1.0-4.8) Monocytes # (Auto) 0.2 x10^3/uL (0.0-1.1) Eosinophils # (Auto) 0.0 x10^3/uL (0.0-0.7) Basophils # (Auto) 0.0 x10^3/uL (0.0-0.2) Sodium Level 139 mmol/L (136-145) Potassium Level 3.7 mmol/L (3.5-5.1) Chloride Level 102 mmol/L (98-107) Carbon Dioxide Level 28 mmol/L (21-32) Anion Gap 9 (6-14) Blood Urea Nitrogen 18 mg/dL (8-26) Creatinine 0.7 mg/dL (0.7-1.3) Estimated GFR (Cockcroft-Gault) 110.5 Glucose Level 147 mg/dL (70-99) Calcium Level 8.3 mg/dL (8.5-10.1) Phosphorus Level 3.4 mg/dL (2.6-4.7) Magnesium Level 2.0 mg/dL (1.8-2.4) Total Bilirubin 0.5 mg/dL (0.2-1.0) Direct Bilirubin 0.3 mg/dL (0.0-0.2) Aspartate Amino Transf (AST/SGOT) 100 U/L (15-37) Alanine Aminotransferase (ALT/SGPT) 81 U/L (16-63) Alkaline Phosphatase 55 U/L (46-116) Total Protein 6.0 g/dL (6.4-8.2) Albumin 2.7 g/dL (3.4-5.0) Medications Active Scripts Medications Dose Route/Sig Max Daily Dose Days Date Category Tadalafil 5 Mg Tablet 5 Mg PO DAILY 06/23/21 Reported Flomax (Tamsulosin Hcl) 0.4 Mg Cap.er.24h 0.4 Mg PO HS 9/27/21 Reported Atorvastatin Calcium 40 Mg Tablet 40 Mg PO HS 06/23/21 Reported Impression . Full note dictated COVID-19 respiratory failure See orders FOREIGN BYRD MD Jun 23, 2021 08:08
[2021-06-23] MEDS: PANTOPRAZOLE IV PUSH 40 MG VIAL. IVP SCH (08:20)
[2021-06-23] MEDS: ZINC SULFATE 220 MG CAPSULE. PO SCH (08:20)
[2021-06-23] MEDS: AZITHROMYCIN 250 MG TABLET. PO SCH (08:21)
[2021-06-23] MEDS: ASCORBIC ACID 1,000 MG TABLET PO SCH ×3 (08:21→21:42)
[2021-06-23] MEDS: THIAMINE 100 MG TABLET. PO SCH (08:21)
[2021-06-23] MEDS: DEXAMETHASONE SOD PHOS 4 MG/ML VIAL IVP SCH (08:22)
--- NOTE | 2021-06-23 10:58 | NUR ---
SW following. Discussed with RN, pt from home with , 8L (does not use oxygen at home), cardiac diet, gets around fine. COVID-19 positive. RN advised no SW needs at this time. SW will continue to follow.
[2021-06-23 11:00] VITALS: BP 143/88
[2021-06-23 15:00] VITALS: BP 151/74
[2021-06-23] MEDS: cefTRIAXone IV Push 1 GM VIAL. IVP SCH (18:03)
[2021-06-23 19:00] VITALS: BP 150/74
--- NOTE | 2021-06-23 20:52 | CONS ---
DATE OF CONSULTATION: 06/23/2021 ATTENDING PHYSICIAN: Keven Deluna MD REASON FOR CONSULTATION: The patient is seen in pulmonary consultation at the request of Dr. Deluna for hypoxemia. HISTORY OF PRESENT ILLNESS: The patient is a 71-year-old non-vaccinated individual with a 3-day history of increasing shortness of breath, loss of taste and some myalgias. He also had confusion. The patient presented to the emergency room. He has some known contact. His has COVID-19. She was vaccinated. He presented. He had some labs drawn. His SARS-CoV-2 rapid test was positive. His arterial blood gas revealed a pO2 of 95 on nonrebreather. White count was normal. Chest x-ray, compatible with bilateral pulmonary infiltrates. CT angiogram revealed no evidence of pulmonary emboli. There was extensive ground glass opacities. The patient was admitted. PAST MEDICAL HISTORY: Otherwise remarkable for hyperlipidemia. PAST SURGICAL HISTORY: None. FAMILY HISTORY: Hypertension. SOCIAL HISTORY: He does not smoke. REVIEW OF SYSTEMS: As indicated above, otherwise a 10-point system was reviewed and negative. CURRENT MEDICATION: List was reviewed. He is currently receiving remdesivir, Tylenol, vitamin C, aspirin, Zithromax, ceftriaxone, dexamethasone and additional medications. PHYSICAL EXAMINATION: The patient was seen during the COVID-19 viral pandemic. Visual inspection revealed no paroxysmal breathing pattern. The patient was able to complete full sentences. No use of accessory muscles. No significant rashes. LABORATORY DATA: As indicated above. IMPRESSION: 1. Hypoxemic respiratory failure, acute, secondary to COVID-19 viral pneumonia. 2. COVID-19 viral pneumonia. 3. Abnormal x-ray. 4. CTA revealed no evidence of pulmonary emboli. PLAN: 1. Continue current support with oxygen supplementation. 2. Steroids. 3. Remdesivir. 4. Empiric antibiotics. 5. DVT prophylaxis. SLAVA/ERNST DR: Andreia TID: [id number]
[2021-06-23] MEDS: TAMSULOSIN 0.4 MG CAP.ER.24H. PO SCH (21:43)
[2021-06-23] MEDS: LACTOBACILLUS RHAMNOSUS GG 1 CAPSULE. PO SCH (21:43)
[2021-06-23] MEDS: REMDESIVIR 100mg in NORMAL SALINE 250ML X 4 DAYS IV SCH (21:43)
[2021-06-23] MEDS: ATORVASTATIN CALCIUM 40 MG TABLET. PO SCH (21:43)
[2021-06-23] MEDS: ENOXAPARIN 40 MG/0.4 ML SYRINGE. SQ SCH (21:44)
[2021-06-23 23:10] VITALS: BP 143/84
[2021-06-24 03:15] VITALS: BP 146/71
[2021-06-24 07:00] VITALS: BP 128/70
--- NOTE | 2021-06-24 07:32 | PDOC ---
[facility] PROGRESS NOTE Date of Service DOS: DATE: 06/24/21 TIME: 07:21 Chief Complaint Chief Complaint Acute respiratory failure with hypoxia COVID-19 pneumonia Bilateral adrenal nodules Plan: Consultation placed to pulmonology We will continue treatment with remdesivir and Decadron We will closely monitor LFTs Empiric antibiotics Supportive care, vitamin C. Resume home medications FEN - Cardiac diet PPX - Lovenox DNR Dispo - inpatient for above Surrogate decision maker is his (Jordan Farfan) History of Present Illness History of Present Illness Patient is a 71-year-old male with past medical history BPH, HLD, who presents to the ED with complaints of worsening shortness of breath over the past 3 days. He reports associated productive cough and lethargy. At home patient's was concerned due to worsening shortness of breath and noted confusion, so she brought him to the ED for further evaluation. On arrival he was hypoxic on room air, which improved to 95% with 15 L nonrebreather. Labs on admission showed CRP 68.5, AST 118, ALT 83, albumin 2.9, D-dimer 1.74. Chest x-ray showed extensive bilateral patchy airspace disease. CT head showed mild small vessel ischemic changes. CTA chest showed bilateral adrenal nodules, extensive bilateral patchy groundglass changes concerning for viral process, negative for PE. He received steroids and broad-spectrum IV antibiotics in ED. Will admit patient for further medical management. 06/24/2021: Afebrile, resting comfortably in bed, currently breathing on 15 L nasal cannula. Appreciate pulmonology recommendations and management of this patient. We will continue remdesivir to complete 5-day course (last day should be 06/26/2021). Continue steroids for 10-day course, with slow taper. Continue empiric antibiotics. Vitals/I&O Vitals/I&O: Vital Signs Date Time Temp Pulse Resp B/P (MAP) Pulse Ox O2 Delivery O2 Flow Rate FiO2 06/24/21 03:15 98.0 61 23 146/71 (96) 92 Nasal Cannula 8.0 98.0 I & O 06/23/21 06/23/21 06/24/21 15:00 23:00 07:00 Intake Total 0 ml Output Total 150 ml 325 ml Balance -150 ml -325 ml Physical Exam General: Alert, mild distress Heart: Regular rate Lungs: Other (Decreased breath sounds bilaterally) Abdomen: Soft, No tenderness Extremities: No clubbing, No cyanosis Skin: No rashes, No breakdown Assessment and Plan Assessmemt and Plan Problems Medical Problems: (1) Acute respiratory failure due to COVID-19 Status: Acute (2) Adrenal nodule Status: Acute (3) COVID-19 Status: Acute Comment Review of Relevant I have reviewed the following items lisa (where applicable) has been applied. Medications: Current Medications Medications (Trade) Dose Ordered Sig/Beth Route PRN Reason Start Time Stop Time Status Last Admin Dose Admin Remdesivir 100 mg/ Sodium Chloride 230 ml @ 460 mls/hr Q24H IV 06/23/21 22:00 06/26/21 22:29 06/23/21 21:43 Dexamethasone Sodium Phosphate (Decadron) 6 mg DAILY IVP 06/23/21 09:00 06/23/21 08:22 Pantoprazole Sodium (PROTONIX VIAL for IV PUSH) 40 mg DAILYAC IVP 06/23/21 07:30 06/23/21 08:20 Ceftriaxone Sodium (Rocephin) 1 gm Q24H IVP 06/23/21 19:00 06/23/21 18:03 Azithromycin (Zithromax) 250 mg DAILY PO 06/23/21 09:00 06/26/21 09:01 06/23/21 08:21 Atorvastatin Calcium (Lipitor) 40 mg HS PO 06/23/21 21:00 06/23/21 21:43 Tamsulosin HCl (Flomax) 0.4 mg HS PO 06/23/21 21:00 06/23/21 21:43 Lactobacillus Rhamnosus (Culturelle) 1 cap BID PO 06/23/21 21:00 06/23/21 21:43 Justifications for Admission Other Justification ERIK LIU MD Jun 24, 2021 07:32
[2021-06-24 07:58] LABS: CALCIUM 8.3 mg/dL (8.5-10.1); CREATININE 0.7 mg/dL (0.7-1.3); GFR 110.5; MAGNESIUM 2.2 mg/dL (1.8-2.4); POTASSIUM 3.9 mmol/L (3.5-5.1)
[2021-06-24] MEDS: THIAMINE 100 MG TABLET. PO SCH (08:04)
[2021-06-24] MEDS: guaiFENesin/CODEINE 100mg/10mg 5 ML LIQUID PO PRN ×3 (08:04→21:38)
[2021-06-24 08:05] LABS: ALBUMIN 2.5 g/dL (3.4-5.0); DIRECT BILIRUBIN 0.3 mg/dL (0.0-0.2); TOTAL BILIRUBIN 0.8 mg/dL (0.2-1.0); TOTAL PROTEIN 5.6 g/dL (6.4-8.2)
[2021-06-24] MEDS: ASCORBIC ACID 1,000 MG TABLET PO SCH ×3 (08:05→21:36)
[2021-06-24] MEDS: ZINC SULFATE 220 MG CAPSULE. PO SCH (08:05)
[2021-06-24] MEDS: PANTOPRAZOLE IV PUSH 40 MG VIAL. IVP SCH (08:05)
[2021-06-24] MEDS: AZITHROMYCIN 250 MG TABLET. PO SCH (08:05)
[2021-06-24] MEDS: LACTOBACILLUS RHAMNOSUS GG 1 CAPSULE. PO SCH ×2 (08:05→21:36)
[2021-06-24] MEDS: DEXAMETHASONE SOD PHOS 4 MG/ML VIAL IVP SCH (08:06)
[2021-06-24 08:10] LABS: BASO % 0 % (0-3); EOS % 0 % (0-3); HEMATOCRIT 42.3 % (39.0-53.0); HEMOGLOBIN 14.6 g/dL (13.0-17.5); LYMPH # 1.4 x10^3/uL (1.0-4.8); LYMPH % 11 % (24-48); MEAN CORPUSCULAR HEMOGLOBIN 32 pg (25-35); MEAN CORPUSCULAR HGB CONC 35 g/dL (31-37); MEAN CORPUSCULAR VOLUME 92 fL (79-100); MONO # 0.8 x10^3/uL (0.0-1.1); MONO % 6 % (0-9); NEUT # 10.6 x10^3/uL (1.8-7.7); NEUT % 83 % (31-73); PLATELET COUNT 186 x10^3/uL (140-400); RED BLOOD COUNT 4.61 x10^6/uL (4.30-5.70); WHITE BLOOD COUNT 12.7 x10^3/uL (4.0-11.0)
--- NOTE | 2021-06-24 10:21 | PDOC ---
PULMONARY PROGRESS NOTES DATE: 06/24/21 TIME: 10:19 Subjective NO SOA ON 15 LITRES o2 Vitals Vital Signs Date Time Temp Pulse Resp B/P (MAP) Pulse Ox O2 Delivery O2 Flow Rate FiO2 06/24/21 07:00 98.8 65 26 128/70 (89) 90 Nasal Cannula 15.0 98.8 General: Alert, No acute distress Lungs: Other (Decreased breath sounds bilaterally) Cardiovascular: S1 Abdomen: Soft Neuro Exam: Alert Extremities: No Edema Skin: Warm Labs Laboratory Tests Test 06/22/21 18:16 06/22/21 18:25 06/22/21 18:26 06/22/21 18:40 White Blood Count 8.1 x10^3/uL (4.0-11.0) Red Blood Count 4.66 x10^6/uL (4.30-5.70) Hemoglobin 14.6 g/dL (13.0-17.5) Hematocrit 42.4 % (39.0-53.0) Mean Corpuscular Volume 91 fL (79-100) Mean Corpuscular Hemoglobin 31 pg (25-35) Mean Corpuscular Hemoglobin Concent 35 g/dL (31-37) Red Cell Distribution Width 13.9 % (11.5-14.5) Platelet Count 149 x10^3/uL (140-400) Neutrophils (%) (Auto) 84 % (31-73) Lymphocytes (%) (Auto) 11 % (24-48) Monocytes (%) (Auto) 5 % (0-9) Eosinophils (%) (Auto) 0 % (0-3) Basophils (%) (Auto) 0 % (0-3) Neutrophils # (Auto) 6.8 x10^3/uL (1.8-7.7) Lymphocytes # (Auto) 0.9 x10^3/uL (1.0-4.8) Monocytes # (Auto) 0.4 x10^3/uL (0.0-1.1) Eosinophils # (Auto) 0.0 x10^3/uL (0.0-0.7) Basophils # (Auto) 0.0 x10^3/uL (0.0-0.2) Sodium Level 138 mmol/L (136-145) Potassium Level 3.9 mmol/L (3.5-5.1) Chloride Level 101 mmol/L (98-107) Carbon Dioxide Level 29 mmol/L (21-32) Anion Gap 8 (6-14) Blood Urea Nitrogen 14 mg/dL (8-26) Creatinine 0.9 mg/dL (0.7-1.3) Estimated GFR (Cockcroft-Gault) 82.7 BUN/Creatinine Ratio 16 (6-20) Glucose Level 115 mg/dL (70-99) Lactic Acid Level 1.3 mmol/L (0.4-2.0) Calcium Level 8.5 mg/dL (8.5-10.1) Total Bilirubin 0.8 mg/dL (0.2-1.0) Aspartate Amino Transf (AST/SGOT) 118 U/L (15-37) Alanine Aminotransferase (ALT/SGPT) 83 U/L (16-63) Alkaline Phosphatase 57 U/L (46-116) Troponin I Quantitative 0.017 ng/mL (0.000-0.055) C-Reactive Protein, Quantitative 68.5 mg/L (0-3.3) PA-Fen-Y-Type Natriuretic Peptide 211 pg/mL (0-124) Total Protein 6.7 g/dL (6.4-8.2) Albumin 2.9 g/dL (3.4-5.0) Albumin/Globulin Ratio 0.8 (1.0-1.7) Procalcitonin < 0.10 ng/mL (0.00-0.10) O2 Saturation 97 % (92-99) Arterial Blood pH 7.44 (7.35-7.45) Arterial Blood pCO2 at Patient Temp 34 mmHg (35-46) Arterial Blood pO2 at Patient Temp 95 mmHg (65-108) Arterial Blood HCO3 23 mmol/L (21-28) Arterial Blood Base Excess -1 mmol/L (-3-3) FiO2 100% nrb mask Bedside Venous pH 7.41 (7.32-7.42) Bedside Venous pCO2 43 mmHg (41-51) Bedside Venous pO2 38 mmHg (20-40) Venous Blood HCO3 28 mmol/L (24-28) POC Venous O2 Saturation (Sofía) 72 % Bedside FiO2 21.0 SARS-CoV-2 Antigen (Rapid) Positive (NEGATIVE) Test 06/22/21 19:20 06/22/21 21:20 06/23/21 06:00 06/24/21 07:20 Urine Collection Type Void Urine Color Zonia Urine Clarity Clear Urine pH 6.0 (<5.0-8.0) Urine Specific [place] >=1.030 (1.000-1.030) Urine Protein 100 mg/dL (NEG-TRACE) Urine Glucose (UA) Negative mg/dL (NEG) Urine Ketones (Stick) Negative mg/dL (NEG) Urine Blood Small (NEG) Urine Nitrite Negative (NEG) Urine Bilirubin Negative (NEG) Urine Urobilinogen Dipstick 1.0 mg/dL (0.2 mg/dL) Urine Leukocyte Esterase Negative (NEG) Urine RBC Rare /HPF (0-2) Urine WBC Rare /HPF (0-4) Urine Squamous Epithelial Cells Occ /LPF Urine Bacteria 0 /HPF (0-FEW) Urine Mucus Slight /LPF D-Dimer (Cherie) 1.74 ug/mlFEU (0.00-0.50) White Blood Count 5.9 x10^3/uL (4.0-11.0) 12.7 x10^3/uL (4.0-11.0) Red Blood Count 4.74 x10^6/uL (4.30-5.70) 4.61 x10^6/uL (4.30-5.70) Hemoglobin 14.9 g/dL (13.0-17.5) 14.6 g/dL (13.0-17.5) Hematocrit 43.1 % (39.0-53.0) 42.3 % (39.0-53.0) Mean Corpuscular Volume 91 fL (79-100) 92 fL (79-100) Mean Corpuscular Hemoglobin 31 pg (25-35) 32 pg (25-35) Mean Corpuscular Hemoglobin Concent 35 g/dL (31-37) 35 g/dL (31-37) Red Cell Distribution Width 13.9 % (11.5-14.5) 14.0 % (11.5-14.5) Platelet Count 157 x10^3/uL (140-400) 186 x10^3/uL (140-400) Neutrophils (%) (Auto) 81 % (31-73) 83 % (31-73) Lymphocytes (%) (Auto) 15 % (24-48) 11 % (24-48) Monocytes (%) (Auto) 4 % (0-9) 6 % (0-9) Eosinophils (%) (Auto) 0 % (0-3) 0 % (0-3) Basophils (%) (Auto) 0 % (0-3) 0 % (0-3) Neutrophils # (Auto) 4.8 x10^3/uL (1.8-7.7) 10.6 x10^3/uL (1.8-7.7) Lymphocytes # (Auto) 0.9 x10^3/uL (1.0-4.8) 1.4 x10^3/uL (1.0-4.8) Monocytes # (Auto) 0.2 x10^3/uL (0.0-1.1) 0.8 x10^3/uL (0.0-1.1) Eosinophils # (Auto) 0.0 x10^3/uL (0.0-0.7) 0.0 x10^3/uL (0.0-0.7) Basophils # (Auto) 0.0 x10^3/uL (0.0-0.2) 0.0 x10^3/uL (0.0-0.2) Sodium Level 139 mmol/L (136-145) 140 mmol/L (136-145) Potassium Level 3.7 mmol/L (3.5-5.1) 3.9 mmol/L (3.5-5.1) Chloride Level 102 mmol/L (98-107) 105 mmol/L (98-107) Carbon Dioxide Level 28 mmol/L (21-32) 28 mmol/L (21-32) Anion Gap 9 (6-14) 7 (6-14) Blood Urea Nitrogen 18 mg/dL (8-26) 23 mg/dL (8-26) Creatinine 0.7 mg/dL (0.7-1.3) 0.7 mg/dL (0.7-1.3) Estimated GFR (Cockcroft-Gault) 110.5 110.5 Glucose Level 147 mg/dL (70-99) 115 mg/dL (70-99) Calcium Level 8.3 mg/dL (8.5-10.1) 8.3 mg/dL (8.5-10.1) Phosphorus Level 3.4 mg/dL (2.6-4.7) Magnesium Level 2.0 mg/dL (1.8-2.4) 2.2 mg/dL (1.8-2.4) Total Bilirubin 0.5 mg/dL (0.2-1.0) 0.8 mg/dL (0.2-1.0) Direct Bilirubin 0.3 mg/dL (0.0-0.2) 0.3 mg/dL (0.0-0.2) Aspartate Amino Transf (AST/SGOT) 100 U/L (15-37) 69 U/L (15-37) Alanine Aminotransferase (ALT/SGPT) 81 U/L (16-63) 83 U/L (16-63) Alkaline Phosphatase 55 U/L (46-116) 50 U/L (46-116) Total Protein 6.0 g/dL (6.4-8.2) 5.6 g/dL (6.4-8.2) Albumin 2.7 g/dL (3.4-5.0) 2.5 g/dL (3.4-5.0) Laboratory Tests Test 06/24/21 07:20 White Blood Count 12.7 x10^3/uL (4.0-11.0) Red Blood Count 4.61 x10^6/uL (4.30-5.70) Hemoglobin 14.6 g/dL (13.0-17.5) Hematocrit 42.3 % (39.0-53.0) Mean Corpuscular Volume 92 fL (79-100) Mean Corpuscular Hemoglobin 32 pg (25-35) Mean Corpuscular Hemoglobin Concent 35 g/dL (31-37) Red Cell Distribution Width 14.0 % (11.5-14.5) Platelet Count 186 x10^3/uL (140-400) Neutrophils (%) (Auto) 83 % (31-73) Lymphocytes (%) (Auto) 11 % (24-48) Monocytes (%) (Auto) 6 % (0-9) Eosinophils (%) (Auto) 0 % (0-3) Basophils (%) (Auto) 0 % (0-3) Neutrophils # (Auto) 10.6 x10^3/uL (1.8-7.7) Lymphocytes # (Auto) 1.4 x10^3/uL (1.0-4.8) Monocytes # (Auto) 0.8 x10^3/uL (0.0-1.1) Eosinophils # (Auto) 0.0 x10^3/uL (0.0-0.7) Basophils # (Auto) 0.0 x10^3/uL (0.0-0.2) Sodium Level 140 mmol/L (136-145) Potassium Level 3.9 mmol/L (3.5-5.1) Chloride Level 105 mmol/L (98-107) Carbon Dioxide Level 28 mmol/L (21-32) Anion Gap 7 (6-14) Blood Urea Nitrogen 23 mg/dL (8-26) Creatinine 0.7 mg/dL (0.7-1.3) Estimated GFR (Cockcroft-Gault) 110.5 Glucose Level 115 mg/dL (70-99) Calcium Level 8.3 mg/dL (8.5-10.1) Magnesium Level 2.2 mg/dL (1.8-2.4) Total Bilirubin 0.8 mg/dL (0.2-1.0) Direct Bilirubin 0.3 mg/dL (0.0-0.2) Aspartate Amino Transf (AST/SGOT) 69 U/L (15-37) Alanine Aminotransferase (ALT/SGPT) 83 U/L (16-63) Alkaline Phosphatase 50 U/L (46-116) Total Protein 5.6 g/dL (6.4-8.2) Albumin 2.5 g/dL (3.4-5.0) Medications Active Scripts Medications Dose Route/Sig Max Daily Dose Days Date Category Tadalafil 5 Mg Tablet 5 Mg PO DAILY 06/23/21 Reported Flomax (Tamsulosin Hcl) 0.4 Mg Cap.er.24h 0.4 Mg PO HS 06/23/21 Reported Atorvastatin Calcium 40 Mg Tablet 40 Mg PO HS 06/23/21 Reported Comments CTA chest reviewed COVID pneumonia Impression . 1. Acute hypoxemic respiratory failure, acute, secondary to COVID-19 viral pneumonia. 2. COVID-19 viral pneumonia. 3. Abnormal x-ray. 4. CTA revealed no evidence of pulmonary emboli. 5. non smoker Plan . PLAN: 1. Continue current support with oxygen supplementation. 2. Steroids. 3. Remdesivir. 4. Empiric antibiotics. 5. DVT prophylaxis. DEANN LINDSAY MD Jun 24, 2021 10:21
[2021-06-24 11:00] VITALS: BP 156/76
[2021-06-24 15:00] VITALS: BP 156/76
[2021-06-24] MEDS: cefTRIAXone IV Push 1 GM VIAL. IVP SCH (18:36)
[2021-06-24 19:00] VITALS: BP 151/78
[2021-06-24] MEDS: TAMSULOSIN 0.4 MG CAP.ER.24H. PO SCH (21:36)
[2021-06-24] MEDS: ENOXAPARIN 40 MG/0.4 ML SYRINGE. SQ SCH (21:36)
[2021-06-24] MEDS: ATORVASTATIN CALCIUM 40 MG TABLET. PO SCH (21:36)
[2021-06-24] MEDS: REMDESIVIR 100mg in NORMAL SALINE 250ML X 4 DAYS IV SCH (21:37)
[2021-06-24] MEDS: LORazepam 0.5 MG TABLET PO PRN (21:46)
[2021-06-24 23:26] VITALS: BP 167/79
[2021-06-25 03:31] VITALS: BP 142/68
--- NOTE | 2021-06-25 05:07 | NUR ---
Pt's O2 sats in low 80's earlier in shift. Placed 15L NRB with 15L NC and sats from 91-94% for most of shift. Does desat to low 80's when up to use urinal but slowly recovers. Educated pt on use of IS and went over plan of care. Will continue to closely monitor.
[2021-06-25 07:00] VITALS: BP 154/79
[2021-06-25] MEDS: ASCORBIC ACID 1,000 MG TABLET PO SCH ×3 (09:04→23:47)
[2021-06-25] MEDS: THIAMINE 100 MG TABLET. PO SCH (09:04)
[2021-06-25] MEDS: ZINC SULFATE 220 MG CAPSULE. PO SCH (09:04)
[2021-06-25] MEDS: LACTOBACILLUS RHAMNOSUS GG 1 CAPSULE. PO SCH ×2 (09:04→23:47)
[2021-06-25] MEDS: AZITHROMYCIN 250 MG TABLET. PO SCH (09:04)
[2021-06-25] MEDS: PANTOPRAZOLE 40 MG TABLET.DR. PO SCH (09:04)
[2021-06-25] MEDS: DEXAMETHASONE SOD PHOS 4 MG/ML VIAL IVP SCH (09:05)
--- NOTE | 2021-06-25 10:05 | PDOC ---
PULMONARY PROGRESS NOTES DATE: 06/25/21 TIME: 10:04 Subjective Patient has some shortness of breath with exertion. ON 15 LITRES o2 Vitals Vital Signs Date Time Temp Pulse Resp B/P (MAP) Pulse Ox O2 Delivery O2 Flow Rate FiO2 06/25/21 07:00 98.2 62 22 154/79 (104) 96 Nasal Cannula 15.0 98.2 General: Alert, No acute distress Lungs: Other (Decreased breath sounds bilaterally) Cardiovascular: S1 Abdomen: Soft Neuro Exam: Alert Extremities: No Edema Skin: Warm Labs Laboratory Tests Test 06/24/21 07:20 White Blood Count 12.7 x10^3/uL (4.0-11.0) Red Blood Count 4.61 x10^6/uL (4.30-5.70) Hemoglobin 14.6 g/dL (13.0-17.5) Hematocrit 42.3 % (39.0-53.0) Mean Corpuscular Volume 92 fL (79-100) Mean Corpuscular Hemoglobin 32 pg (25-35) Mean Corpuscular Hemoglobin Concent 35 g/dL (31-37) Red Cell Distribution Width 14.0 % (11.5-14.5) Platelet Count 186 x10^3/uL (140-400) Neutrophils (%) (Auto) 83 % (31-73) Lymphocytes (%) (Auto) 11 % (24-48) Monocytes (%) (Auto) 6 % (0-9) Eosinophils (%) (Auto) 0 % (0-3) Basophils (%) (Auto) 0 % (0-3) Neutrophils # (Auto) 10.6 x10^3/uL (1.8-7.7) Lymphocytes # (Auto) 1.4 x10^3/uL (1.0-4.8) Monocytes # (Auto) 0.8 x10^3/uL (0.0-1.1) Eosinophils # (Auto) 0.0 x10^3/uL (0.0-0.7) Basophils # (Auto) 0.0 x10^3/uL (0.0-0.2) Sodium Level 140 mmol/L (136-145) Potassium Level 3.9 mmol/L (3.5-5.1) Chloride Level 105 mmol/L (98-107) Carbon Dioxide Level 28 mmol/L (21-32) Anion Gap 7 (6-14) Blood Urea Nitrogen 23 mg/dL (8-26) Creatinine 0.7 mg/dL (0.7-1.3) Estimated GFR (Cockcroft-Gault) 110.5 Glucose Level 115 mg/dL (70-99) Calcium Level 8.3 mg/dL (8.5-10.1) Magnesium Level 2.2 mg/dL (1.8-2.4) Total Bilirubin 0.8 mg/dL (0.2-1.0) Direct Bilirubin 0.3 mg/dL (0.0-0.2) Aspartate Amino Transf (AST/SGOT) 69 U/L (15-37) Alanine Aminotransferase (ALT/SGPT) 83 U/L (16-63) Alkaline Phosphatase 50 U/L (46-116) Total Protein 5.6 g/dL (6.4-8.2) Albumin 2.5 g/dL (3.4-5.0) Medications Active Scripts Medications Dose Route/Sig Max Daily Dose Days Date Category Tadalafil 5 Mg Tablet 5 Mg PO DAILY 06/23/21 Reported Flomax (Tamsulosin Hcl) 0.4 Mg Cap.er.24h 0.4 Mg PO HS 06/23/21 Reported Atorvastatin Calcium 40 Mg Tablet 40 Mg PO HS 06/23/21 Reported Comments CTA chest reviewed COVID pneumonia Impression . 1. Acute hypoxemic respiratory failure, acute, secondary to COVID-19 viral pneumonia. 2. COVID-19 viral pneumonia. 3. Abnormal x-ray. 4. CTA revealed no evidence of pulmonary emboli. 5. non smoker Plan . PLAN: 1. Continue current support with oxygen supplementation. 15 L high flow cannula. 2. Steroids. 3. Remdesivir. 4. Empiric antibiotics. 5. DVT prophylaxis. 6. Monitor respiratory status closely DEANN LINDSAY MD Jun 25, 2021 10:05
[2021-06-25 11:00] VITALS: BP 141/72
[2021-06-25 11:15] LABS: BASO % 0 % (0-3); EOS % 0 % (0-3); HEMATOCRIT 43.4 % (39.0-53.0); LYMPH % 9 % (24-48); MEAN CORPUSCULAR HEMOGLOBIN 32 pg (25-35); MEAN CORPUSCULAR HGB CONC 35 g/dL (31-37); MEAN CORPUSCULAR VOLUME 92 fL (79-100); MONO # 0.8 x10^3/uL (0.0-1.1); MONO % 7 % (0-9); NEUT # 9.7 x10^3/uL (1.8-7.7); NEUT % 84 % (31-73); PLATELET COUNT 218 x10^3/uL (140-400); RED BLOOD COUNT 4.72 x10^6/uL (4.30-5.70); RED CELL DISTRIBUTION WIDTH 13.8 % (11.5-14.5); WHITE BLOOD COUNT 11.6 x10^3/uL (4.0-11.0)
[2021-06-25 11:38] LABS: CALCIUM 8.1 mg/dL (8.5-10.1); CREATININE 0.8 mg/dL (0.7-1.3); GFR 94.8; MAGNESIUM 2.3 mg/dL (1.8-2.4); POTASSIUM 4.2 mmol/L (3.5-5.1)
[2021-06-25 11:44] LABS: ALBUMIN 2.7 g/dL (3.4-5.0); DIRECT BILIRUBIN 0.4 mg/dL (0.0-0.2); TOTAL BILIRUBIN 1.1 mg/dL (0.2-1.0); TOTAL PROTEIN 5.8 g/dL (6.4-8.2)
[2021-06-25 15:00] VITALS: BP 147/77
--- NOTE | 2021-06-25 15:49 | PDOC ---
[facility] PROGRESS NOTE Date of Service DOS: DATE: 06/25/21 TIME: 15:47 Chief Complaint Chief Complaint Acute respiratory failure with hypoxia COVID-19 pneumonia Bilateral adrenal nodules Plan: Consultation placed to pulmonology We will continue treatment with remdesivir and Decadron We will closely monitor LFTs Empiric antibiotics Supportive care, vitamin C. Resume home medications FEN - Cardiac diet PPX - Lovenox DNR Dispo - inpatient for above Surrogate decision maker is his (Jordan Farfan) History of Present Illness History of Present Illness Patient is a 71-year-old male with past medical history BPH, HLD, who presents to the ED with complaints of worsening shortness of breath over the past 3 days. He reports associated productive cough and lethargy. At home patient's was concerned due to worsening shortness of breath and noted confusion, so she brought him to the ED for further evaluation. On arrival he was hypoxic on room air, which improved to 95% with 15 L nonrebreather. Labs on admission showed CRP 68.5, AST 118, ALT 83, albumin 2.9, D-dimer 1.74. Chest x-ray showed extensive bilateral patchy airspace disease. CT head showed mild small vessel ischemic changes. CTA chest showed bilateral adrenal nodules, extensive bilateral patchy groundglass changes concerning for viral process, negative for PE. He received steroids and broad-spectrum IV antibiotics in ED. Will admit patient for further medical management. 06/24/2021: Afebrile, resting comfortably in bed, currently breathing on 15 L nasal cannula. Appreciate pulmonology recommendations and management of this patient. We will continue remdesivir to complete 5-day course (last day should be 06/26/2021). Continue steroids for 10-day course, with slow taper. Continue empiric antibiotics. 06/25/2021: Afebrile. Still breathing on 15 L nasal cannula. Last day remdesivir should be tomorrow. Continue empiric antibiotics. Continue steroids to complete a 10-day course with slow taper. Vitals/I&O Vitals/I&O: Vital Signs Date Time Temp Pulse Resp B/P (MAP) Pulse Ox O2 Delivery O2 Flow Rate FiO2 06/25/21 15:00 98.5 70 26 147/77 (100) 97 Nasal Cannula 15.0 98.5 I & O 9/06/24/21 06/25/21 15:00 23:00 07:00 Intake Total 120 ml 230 ml Output Total 175 ml 200 ml 250 ml Balance -55 ml 30 ml -250 ml Physical Exam General: Alert, mild distress Heart: Regular rate Lungs: Other (Decreased breath sounds bilaterally) Abdomen: Soft, No tenderness Extremities: No clubbing, No cyanosis Skin: No rashes, No breakdown Labs Labs: Laboratory Tests Test 06/25/21 10:35 White Blood Count 11.6 x10^3/uL (4.0-11.0) Red Blood Count 4.72 x10^6/uL (4.30-5.70) Hemoglobin 15.0 g/dL (13.0-17.5) Hematocrit 43.4 % (39.0-53.0) Mean Corpuscular Volume 92 fL (79-100) Mean Corpuscular Hemoglobin 32 pg (25-35) Mean Corpuscular Hemoglobin Concent 35 g/dL (31-37) Red Cell Distribution Width 13.8 % (11.5-14.5) Platelet Count 218 x10^3/uL (140-400) Neutrophils (%) (Auto) 84 % (31-73) Lymphocytes (%) (Auto) 9 % (24-48) Monocytes (%) (Auto) 7 % (0-9) Eosinophils (%) (Auto) 0 % (0-3) Basophils (%) (Auto) 0 % (0-3) Neutrophils # (Auto) 9.7 x10^3/uL (1.8-7.7) Lymphocytes # (Auto) 1.0 x10^3/uL (1.0-4.8) Monocytes # (Auto) 0.8 x10^3/uL (0.0-1.1) Eosinophils # (Auto) 0.0 x10^3/uL (0.0-0.7) Basophils # (Auto) 0.0 x10^3/uL (0.0-0.2) Sodium Level 141 mmol/L (136-145) Potassium Level 4.2 mmol/L (3.5-5.1) Chloride Level 105 mmol/L (98-107) Carbon Dioxide Level 30 mmol/L (21-32) Anion Gap 6 (6-14) Blood Urea Nitrogen 22 mg/dL (8-26) Creatinine 0.8 mg/dL (0.7-1.3) Estimated GFR (Cockcroft-Gault) 94.8 Glucose Level 103 mg/dL (70-99) Calcium Level 8.1 mg/dL (8.5-10.1) Magnesium Level 2.3 mg/dL (1.8-2.4) Total Bilirubin 1.1 mg/dL (0.2-1.0) Direct Bilirubin 0.4 mg/dL (0.0-0.2) Aspartate Amino Transf (AST/SGOT) 47 U/L (15-37) Alanine Aminotransferase (ALT/SGPT) 76 U/L (16-63) Alkaline Phosphatase 57 U/L (46-116) Total Protein 5.8 g/dL (6.4-8.2) Albumin 2.7 g/dL (3.4-5.0) Assessment and Plan Assessmemt and Plan Problems Medical Problems: (1) Acute respiratory failure due to COVID-19 Status: Acute (2) Adrenal nodule Status: Acute (3) COVID-19 Status: Acute Comment Review of Relevant I have reviewed the following items lisa (where applicable) has been applied. Medications: Current Medications Medications (Trade) Dose Ordered Sig/Beth Route PRN Reason Start Time Stop Time Status Last Admin Dose Admin Pantoprazole Sodium (Protonix) 40 mg DAILYAC PO 06/25/21 07:30 06/25/21 09:04 Justifications for Admission Other Justification ERIK LIU MD Jun 25, 2021 15:49
[2021-06-25] MEDS: cefTRIAXone IV Push 1 GM VIAL. IVP SCH (18:30)
[2021-06-25 19:00] VITALS: BP 155/79
[2021-06-25 22:51] VITALS: BP 160/76
[2021-06-25] MEDS: ATORVASTATIN CALCIUM 40 MG TABLET. PO SCH (23:47)
[2021-06-25] MEDS: ENOXAPARIN 40 MG/0.4 ML SYRINGE. SQ SCH (23:47)
[2021-06-25] MEDS: TAMSULOSIN 0.4 MG CAP.ER.24H. PO SCH (23:47)
[2021-06-25] MEDS: REMDESIVIR 100mg in NORMAL SALINE 250ML X 4 DAYS IV SCH (23:48)
[2021-06-26 02:59] VITALS: BP 162/67
--- NOTE | 2021-06-26 06:14 | PDOC ---
[facility] PROGRESS NOTE Date of Service DOS: DATE: 06/26/21 TIME: 06:12 Chief Complaint Chief Complaint Acute respiratory failure with hypoxia COVID-19 pneumonia Bilateral adrenal nodules Plan: Consultation placed to pulmonology We will continue treatment with remdesivir and Decadron We will closely monitor LFTs Empiric antibiotics Supportive care, vitamin C. Resume home medications FEN - Cardiac diet PPX - Lovenox DNR Dispo - inpatient for above Surrogate decision maker is his (Jordan Farfan) History of Present Illness History of Present Illness Patient is a 71-year-old male with past medical history BPH, HLD, who presents to the ED with complaints of worsening shortness of breath over the past 3 days. He reports associated productive cough and lethargy. At home patient's was concerned due to worsening shortness of breath and noted confusion, so she brought him to the ED for further evaluation. On arrival he was hypoxic on room air, which improved to 95% with 15 L nonrebreather. Labs on admission showed CRP 68.5, AST 118, ALT 83, albumin 2.9, D-dimer 1.74. Chest x-ray showed extensive bilateral patchy airspace disease. CT head showed mild small vessel ischemic changes. CTA chest showed bilateral adrenal nodules, extensive bilateral patchy groundglass changes concerning for viral process, negative for PE. He received steroids and broad-spectrum IV antibiotics in ED. Will admit patient for further medical management. 06/24/2021: Afebrile, resting comfortably in bed, currently breathing on 15 L nasal cannula. Appreciate pulmonology recommendations and management of this patient. We will continue remdesivir to complete 5-day course (last day should be 06/26/2021). Continue steroids for 10-day course, with slow taper. Continue empiric antibiotics. 06/25/2021: Afebrile. Still breathing on 15 L nasal cannula. Last day remdesivir should be tomorrow. Continue empiric antibiotics. Continue steroids to complete a 10-day course with slow taper. 06/26/2021: Afebrile, requiring 15 L nonrebreather. Last dose of remdesivir yesterday. Continue empiric antibiotics and steroids to complete 10-day course (will begin slow Decadron taper 07/03) continue supportive care. Vitals/I&O Vitals/I&O: Vital Signs Date Time Temp Pulse Resp B/P (MAP) Pulse Ox O2 Delivery O2 Flow Rate FiO2 06/26/21 02:59 97.7 63 18 162/67 (98) 93 NonRebreather Mask 15.0 97.7 I & O 06/25/21 06/25/21 06/26/21 15:00 23:00 07:00 Intake Total 480 ml 240 ml Output Total 300 ml Balance 480 ml 240 ml -300 ml Physical Exam General: Alert, No acute distress Heart: Regular rate Lungs: Other (Decreased breath sounds bilaterally) Abdomen: Soft, No tenderness Extremities: No clubbing, No cyanosis Skin: No rashes, No breakdown Labs Labs: Laboratory Tests Test 06/25/21 10:35 White Blood Count 11.6 x10^3/uL (4.0-11.0) Red Blood Count 4.72 x10^6/uL (4.30-5.70) Hemoglobin 15.0 g/dL (13.0-17.5) Hematocrit 43.4 % (39.0-53.0) Mean Corpuscular Volume 92 fL (79-100) Mean Corpuscular Hemoglobin 32 pg (25-35) Mean Corpuscular Hemoglobin Concent 35 g/dL (31-37) Red Cell Distribution Width 13.8 % (11.5-14.5) Platelet Count 218 x10^3/uL (140-400) Neutrophils (%) (Auto) 84 % (31-73) Lymphocytes (%) (Auto) 9 % (24-48) Monocytes (%) (Auto) 7 % (0-9) Eosinophils (%) (Auto) 0 % (0-3) Basophils (%) (Auto) 0 % (0-3) Neutrophils # (Auto) 9.7 x10^3/uL (1.8-7.7) Lymphocytes # (Auto) 1.0 x10^3/uL (1.0-4.8) Monocytes # (Auto) 0.8 x10^3/uL (0.0-1.1) Eosinophils # (Auto) 0.0 x10^3/uL (0.0-0.7) Basophils # (Auto) 0.0 x10^3/uL (0.0-0.2) Sodium Level 141 mmol/L (136-145) Potassium Level 4.2 mmol/L (3.5-5.1) Chloride Level 105 mmol/L (98-107) Carbon Dioxide Level 30 mmol/L (21-32) Anion Gap 6 (6-14) Blood Urea Nitrogen 22 mg/dL (8-26) Creatinine 0.8 mg/dL (0.7-1.3) Estimated GFR (Cockcroft-Gault) 94.8 Glucose Level 103 mg/dL (70-99) Calcium Level 8.1 mg/dL (8.5-10.1) Magnesium Level 2.3 mg/dL (1.8-2.4) Total Bilirubin 1.1 mg/dL (0.2-1.0) Direct Bilirubin 0.4 mg/dL (0.0-0.2) Aspartate Amino Transf (AST/SGOT) 47 U/L (15-37) Alanine Aminotransferase (ALT/SGPT) 76 U/L (16-63) Alkaline Phosphatase 57 U/L (46-116) Total Protein 5.8 g/dL (6.4-8.2) Albumin 2.7 g/dL (3.4-5.0) Assessment and Plan Assessmemt and Plan Problems Medical Problems: (1) Acute respiratory failure due to COVID-19 Status: Acute (2) Adrenal nodule Status: Acute (3) COVID-19 Status: Acute Comment Review of Relevant I have reviewed the following items lisa (where applicable) has been applied. Medications: Current Medications Medications (Trade) Dose Ordered Sig/Beth Route PRN Reason Start Time Stop Time Status Last Admin Dose Admin Pantoprazole Sodium (Protonix) 40 mg DAILYAC PO 06/25/21 07:30 06/25/21 09:04 Justifications for Admission Other Justification ERIK LIU MD Jun 26, 2021 06:14
[2021-06-26 07:00] VITALS: BP 147/69
[2021-06-26] MEDS: PANTOPRAZOLE 40 MG TABLET.DR. PO SCH (08:39)
[2021-06-26] MEDS: THIAMINE 100 MG TABLET. PO SCH (08:39)
[2021-06-26] MEDS: AZITHROMYCIN 250 MG TABLET. PO SCH (08:39)
[2021-06-26] MEDS: DEXAMETHASONE SOD PHOS 4 MG/ML VIAL IVP SCH (08:39)
[2021-06-26] MEDS: LACTOBACILLUS RHAMNOSUS GG 1 CAPSULE. PO SCH ×2 (08:39→22:11)
[2021-06-26] MEDS: ASCORBIC ACID 1,000 MG TABLET PO SCH ×3 (08:39→22:11)
[2021-06-26] MEDS: ZINC SULFATE 220 MG CAPSULE. PO SCH (08:39)
[2021-06-26 08:45] LABS: ALBUMIN 2.4 g/dL (3.4-5.0); DIRECT BILIRUBIN 0.5 mg/dL (0.0-0.2); TOTAL BILIRUBIN 1.4 mg/dL (0.2-1.0); TOTAL PROTEIN 5.9 g/dL (6.4-8.2)
[2021-06-26 11:00] VITALS: BP 141/69
--- NOTE | 2021-06-26 13:54 | PDOC ---
PULMONARY PROGRESS NOTES DATE: 06/26/21 TIME: 13:54 Subjective no increase soa ON 15 LITRES o2 Vitals Vital Signs Date Time Temp Pulse Resp B/P (MAP) Pulse Ox O2 Delivery O2 Flow Rate FiO2 06/26/21 11:00 98.0 67 18 141/69 (93) 95 NonRebreather Mask 15.0 98.0 General: Alert, No acute distress Lungs: Other (Decreased breath sounds bilaterally) Cardiovascular: S1 Abdomen: Soft Neuro Exam: Alert Extremities: No Edema Skin: Warm Labs Laboratory Tests Test 06/25/21 10:35 06/26/21 07:20 White Blood Count 11.6 x10^3/uL (4.0-11.0) Red Blood Count 4.72 x10^6/uL (4.30-5.70) Hemoglobin 15.0 g/dL (13.0-17.5) Hematocrit 43.4 % (39.0-53.0) Mean Corpuscular Volume 92 fL (79-100) Mean Corpuscular Hemoglobin 32 pg (25-35) Mean Corpuscular Hemoglobin Concent 35 g/dL (31-37) Red Cell Distribution Width 13.8 % (11.5-14.5) Platelet Count 218 x10^3/uL (140-400) Neutrophils (%) (Auto) 84 % (31-73) Lymphocytes (%) (Auto) 9 % (24-48) Monocytes (%) (Auto) 7 % (0-9) Eosinophils (%) (Auto) 0 % (0-3) Basophils (%) (Auto) 0 % (0-3) Neutrophils # (Auto) 9.7 x10^3/uL (1.8-7.7) Lymphocytes # (Auto) 1.0 x10^3/uL (1.0-4.8) Monocytes # (Auto) 0.8 x10^3/uL (0.0-1.1) Eosinophils # (Auto) 0.0 x10^3/uL (0.0-0.7) Basophils # (Auto) 0.0 x10^3/uL (0.0-0.2) Sodium Level 141 mmol/L (136-145) Potassium Level 4.2 mmol/L (3.5-5.1) Chloride Level 105 mmol/L (98-107) Carbon Dioxide Level 30 mmol/L (21-32) Anion Gap 6 (6-14) Blood Urea Nitrogen 22 mg/dL (8-26) Creatinine 0.8 mg/dL (0.7-1.3) Estimated GFR (Cockcroft-Gault) 94.8 Glucose Level 103 mg/dL (70-99) Calcium Level 8.1 mg/dL (8.5-10.1) Magnesium Level 2.3 mg/dL (1.8-2.4) Total Bilirubin 1.1 mg/dL (0.2-1.0) 1.4 mg/dL (0.2-1.0) Direct Bilirubin 0.4 mg/dL (0.0-0.2) 0.5 mg/dL (0.0-0.2) Aspartate Amino Transf (AST/SGOT) 47 U/L (15-37) 44 U/L (15-37) Alanine Aminotransferase (ALT/SGPT) 76 U/L (16-63) 64 U/L (16-63) Alkaline Phosphatase 57 U/L (46-116) 60 U/L (46-116) Total Protein 5.8 g/dL (6.4-8.2) 5.9 g/dL (6.4-8.2) Albumin 2.7 g/dL (3.4-5.0) 2.4 g/dL (3.4-5.0) Laboratory Tests Test 06/26/21 07:20 Total Bilirubin 1.4 mg/dL (0.2-1.0) Direct Bilirubin 0.5 mg/dL (0.0-0.2) Aspartate Amino Transf (AST/SGOT) 44 U/L (15-37) Alanine Aminotransferase (ALT/SGPT) 64 U/L (16-63) Alkaline Phosphatase 60 U/L (46-116) Total Protein 5.9 g/dL (6.4-8.2) Albumin 2.4 g/dL (3.4-5.0) Medications Active Scripts Medications Dose Route/Sig Max Daily Dose Days Date Category Tadalafil 5 Mg Tablet 5 Mg PO DAILY 06/23/21 Reported Flomax (Tamsulosin Hcl) 0.4 Mg Cap.er.24h 0.4 Mg PO HS 06/23/21 Reported Atorvastatin Calcium 40 Mg Tablet 40 Mg PO HS 06/23/21 Reported Comments CTA chest reviewed COVID pneumonia Impression . 1. Acute hypoxemic respiratory failure, acute, secondary to COVID-19 viral pneumonia. 2. COVID-19 viral pneumonia. 3. Abnormal x-ray. 4. CTA revealed no evidence of pulmonary emboli. 5. non smoker Plan . PLAN: 1. Continue current support with oxygen supplementation. 15 L high flow cannula. 2. Steroids. 3. Remdesivir. 4. Empiric antibiotics. 5. DVT prophylaxis. 6. Monitor respiratory status closely DEANN LINDSAY MD Jun 26, 2021 13:54
[2021-06-26 15:00] VITALS: BP 145/74
[2021-06-26] MEDS: cefTRIAXone IV Push 1 GM VIAL. IVP SCH (18:50)
[2021-06-26 19:00] VITALS: BP 158/77
[2021-06-26] MEDS: ENOXAPARIN 40 MG/0.4 ML SYRINGE. SQ SCH (22:11)
[2021-06-26] MEDS: TAMSULOSIN 0.4 MG CAP.ER.24H. PO SCH (22:11)
[2021-06-26] MEDS: ATORVASTATIN CALCIUM 40 MG TABLET. PO SCH (22:11)
[2021-06-26] MEDS: REMDESIVIR 100mg in NORMAL SALINE 250ML X 4 DAYS IV SCH (22:11)
[2021-06-26] MEDS: guaiFENesin/CODEINE 100mg/10mg 5 ML LIQUID PO PRN (22:17)
[2021-06-26 23:00] VITALS: BP 169/76
[2021-06-27 03:00] VITALS: BP 168/78
--- NOTE | 2021-06-27 06:29 | PDOC ---
[facility] PROGRESS NOTE Date of Service DOS: DATE: 06/27/21 TIME: 06:24 Chief Complaint Chief Complaint Acute respiratory failure with hypoxia COVID-19 pneumonia Bilateral adrenal nodules Plan: Consultation placed to pulmonology We will continue treatment with remdesivir and Decadron We will closely monitor LFTs Empiric antibiotics Supportive care, vitamin C. Resume home medications FEN - Cardiac diet PPX - Lovenox DNR Dispo - inpatient for above Surrogate decision maker is his (Jordan Farfan) History of Present Illness History of Present Illness Patient is a 71-year-old male with past medical history BPH, HLD, who presents to the ED with complaints of worsening shortness of breath over the past 3 days. He reports associated productive cough and lethargy. At home patient's was concerned due to worsening shortness of breath and noted confusion, so she brought him to the ED for further evaluation. On arrival he was hypoxic on room air, which improved to 95% with 15 L nonrebreather. Labs on admission showed CRP 68.5, AST 118, ALT 83, albumin 2.9, D-dimer 1.74. Chest x-ray showed extensive bilateral patchy airspace disease. CT head showed mild small vessel ischemic changes. CTA chest showed bilateral adrenal nodules, extensive bilateral patchy groundglass changes concerning for viral process, negative for PE. He received steroids and broad-spectrum IV antibiotics in ED. Will admit patient for further medical management. 06/24/2021: Afebrile, resting comfortably in bed, currently breathing on 15 L nasal cannula. Appreciate pulmonology recommendations and management of this patient. We will continue remdesivir to complete 5-day course (last day should be 06/26/2021). Continue steroids for 10-day course, with slow taper. Continue empiric antibiotics. 06/25/2021: Afebrile. Still breathing on 15 L nasal cannula. Last day remdesivir should be tomorrow. Continue empiric antibiotics. Continue steroids to complete a 10-day course with slow taper. 06/26/2021: Afebrile, requiring 15 L nonrebreather. Last dose of remdesivir yesterday. Continue empiric antibiotics and steroids to complete 10-day course (will begin slow Decadron taper 07/03) continue supportive care. 06/27/2021: Patient remains on 15 L nonrebreather. Afebrile. S/P remdesivir. Chest x-ray this morning showed worsening nearly diffuse bilateral pulmonary infiltrates, consistent with known COVID 19 pneumonia. Continue empiric anti biotics; will obtain procalcitonin. Continue steroids to complete 10-day course (with slow Decadron taper to begin 07/03). Continue supportive care. Vitals/I&O Vitals/I&O: Vital Signs Date Time Temp Pulse Resp B/P (MAP) Pulse Ox O2 Delivery O2 Flow Rate FiO2 06/27/21 03:00 97.6 59 18 168/78 (108) 15 NonRebreather Mask 97.6 06/26/21 23:00 15.0 I & O 06/26/21 06/26/21 06/27/21 15:00 23:00 07:00 Intake Total 480 ml 540 ml 400 ml Output Total 500 ml Balance 480 ml 540 ml -100 ml Physical Exam General: Alert, No acute distress Heart: Regular rate Lungs: Other (Decreased breath sounds bilaterally) Abdomen: Soft, No tenderness Extremities: No clubbing, No cyanosis Skin: No rashes, No breakdown Labs Labs: Laboratory Tests Test 06/26/21 07:20 Total Bilirubin 1.4 mg/dL (0.2-1.0) Direct Bilirubin 0.5 mg/dL (0.0-0.2) Aspartate Amino Transf (AST/SGOT) 44 U/L (15-37) Alanine Aminotransferase (ALT/SGPT) 64 U/L (16-63) Alkaline Phosphatase 60 U/L (46-116) Total Protein 5.9 g/dL (6.4-8.2) Albumin 2.4 g/dL (3.4-5.0) Assessment and Plan Assessmemt and Plan Problems Medical Problems: (1) Acute respiratory failure due to COVID-19 Status: Acute (2) Adrenal nodule Status: Acute (3) COVID-19 Status: Acute Comment Review of Relevant I have reviewed the following items lisa (where applicable) has been applied. Justifications for Admission Other Justification ERIK LIU MD Jun 27, 2021 06:29
[2021-06-27] MEDS ORDERED: hydrALAZINE 20 MG/ML VIAL. IVP PRN (06:30)
[2021-06-27 07:00] VITALS: BP 159/71
--- NOTE | 2021-06-27 07:56 | RAD ---
EXAMINATION: Chest radiograph. VIEWS: Single view COMPARISON: 06/22/2021 INDICATION:71 years, Male, Covid 19 pneumonia. FINDINGS: Normal cardiomediastinal silhouette. Interval worsening nearly diffuse bilateral airspace opacities. No pleural effusion or pneumothorax. No acute osseous process. IMPRESSION: Worsening nearly diffuse bilateral pulmonary infiltrates, consistent with known COVID 19 pneumonia. Electronically signed by: Andrea Osorio MD (06/27/2021 7:54 AM) [id number]
[2021-06-27 08:23] LABS: ALBUMIN 2.4 g/dL (3.4-5.0); DIRECT BILIRUBIN 0.5 mg/dL (0.0-0.2); TOTAL BILIRUBIN 1.6 mg/dL (0.2-1.0); TOTAL PROTEIN 6.2 g/dL (6.4-8.2)
[2021-06-27 11:00] VITALS: BP 155/72
[2021-06-27] MEDS: LACTOBACILLUS RHAMNOSUS GG 1 CAPSULE. PO SCH ×2 (11:12→20:19)
[2021-06-27] MEDS: THIAMINE 100 MG TABLET. PO SCH (11:12)
[2021-06-27] MEDS: ASCORBIC ACID 1,000 MG TABLET PO SCH ×3 (11:13→20:18)
[2021-06-27] MEDS: ZINC SULFATE 220 MG CAPSULE. PO SCH (11:13)
[2021-06-27] MEDS: ENOXAPARIN 40 MG/0.4 ML SYRINGE. SQ SCH ×2 (11:13→20:18)
[2021-06-27] MEDS: PANTOPRAZOLE 40 MG TABLET.DR. PO SCH (11:13)
[2021-06-27] MEDS: DEXAMETHASONE SOD PHOS 4 MG/ML VIAL IVP SCH (11:15)
--- NOTE | 2021-06-27 12:04 | PDOC ---
PULMONARY PROGRESS NOTES DATE: 06/27/21 TIME: 12:03 Subjective no increase soa remains on high flow canula Vitals Vital Signs Date Time Temp Pulse Resp B/P (MAP) Pulse Ox O2 Delivery O2 Flow Rate FiO2 06/27/21 11:00 98.8 65 24 155/72 (99) 93 NonRebreather Mask 15.0 98.8 General: Alert, No acute distress Lungs: Other (Decreased breath sounds bilaterally) Cardiovascular: S1 Abdomen: Soft Neuro Exam: Alert Extremities: No Edema Skin: Warm Labs Laboratory Tests Test 06/26/21 07:20 06/27/21 07:25 Total Bilirubin 1.4 mg/dL (0.2-1.0) 1.6 mg/dL (0.2-1.0) Direct Bilirubin 0.5 mg/dL (0.0-0.2) 0.5 mg/dL (0.0-0.2) Aspartate Amino Transf (AST/SGOT) 44 U/L (15-37) 41 U/L (15-37) Alanine Aminotransferase (ALT/SGPT) 64 U/L (16-63) 71 U/L (16-63) Alkaline Phosphatase 60 U/L (46-116) 61 U/L (46-116) Total Protein 5.9 g/dL (6.4-8.2) 6.2 g/dL (6.4-8.2) Albumin 2.4 g/dL (3.4-5.0) 2.4 g/dL (3.4-5.0) Laboratory Tests Test 06/27/21 07:25 Total Bilirubin 1.6 mg/dL (0.2-1.0) Direct Bilirubin 0.5 mg/dL (0.0-0.2) Aspartate Amino Transf (AST/SGOT) 41 U/L (15-37) Alanine Aminotransferase (ALT/SGPT) 71 U/L (16-63) Alkaline Phosphatase 61 U/L (46-116) Total Protein 6.2 g/dL (6.4-8.2) Albumin 2.4 g/dL (3.4-5.0) Medications Active Scripts Medications Dose Route/Sig Max Daily Dose Days Date Category Tadalafil 5 Mg Tablet 5 Mg PO DAILY 06/23/21 Reported Flomax (Tamsulosin Hcl) 0.4 Mg Cap.er.24h 0.4 Mg PO HS 06/23/21 Reported Atorvastatin Calcium 40 Mg Tablet 40 Mg PO HS 06/23/21 Reported Comments CTA chest reviewed COVID pneumonia Impression . 1. Acute hypoxemic respiratory failure, acute, secondary to COVID-19 viral pneumonia. 2. COVID-19 viral pneumonia. 3. Abnormal x-ray. 4. CTA revealed no evidence of pulmonary emboli. 5. non smoker Plan . PLAN: 1. Continue current support with oxygen supplementation. 15 L high flow cannula. 2. Steroids. 3. Remdesivir. 4. Empiric antibiotics. 5. DVT prophylaxis. 6. Monitor respiratory status closely. so far stable DEANN LINDSAY MD Jun 27, 2021 12:04
[2021-06-27 15:00] VITALS: BP 161/76
[2021-06-27 19:00] VITALS: BP 149/70
[2021-06-27] MEDS: cefTRIAXone IV Push 1 GM VIAL. IVP SCH (20:18)
[2021-06-27] MEDS: TAMSULOSIN 0.4 MG CAP.ER.24H. PO SCH (20:19)
[2021-06-27] MEDS: ATORVASTATIN CALCIUM 40 MG TABLET. PO SCH (20:19)
[2021-06-27 23:00] VITALS: BP 137/77
[2021-06-28] MEDS: guaiFENesin/CODEINE 100mg/10mg 5 ML LIQUID PO PRN ×2 (02:54→23:03)
[2021-06-28 03:00] VITALS: BP 140/69
[2021-06-28] MEDS ORDERED: ALBUTEROL SULFATE 8GM INHALER. INH PRN (03:00)
--- NOTE | 2021-06-28 03:13 | NUR ---
Pt up to use urinal and sats dropped into 70's on 15L NRB and 12L NC. Increased nasal cannula to 15L; pt took about 15 minutes to recover to high 80's. Pt given prn albuterol inhaler and cough medicine. RT in to see pt. Currently sats at 90% on NRB and 15L NC. Will continue with plan of care.
[2021-06-28 07:00] VITALS: BP 139/67
--- NOTE | 2021-06-28 09:01 | PDOC ---
[facility] PROGRESS NOTE Date of Service DOS: DATE: 06/28/21 TIME: 08:58 Chief Complaint Chief Complaint Acute respiratory failure with hypoxia COVID-19 pneumonia Bilateral adrenal nodules Plan: Consultation placed to pulmonology We will continue treatment with remdesivir and Decadron We will closely monitor LFTs Empiric antibiotics Supportive care, vitamin C. Resume home medications FEN - Cardiac diet PPX - Lovenox DNR Dispo - inpatient for above Surrogate decision maker is his (Jordan Farfan) History of Present Illness History of Present Illness Patient is a 71-year-old male with past medical history BPH, HLD, who presents to the ED with complaints of worsening shortness of breath over the past 3 days. He reports associated productive cough and lethargy. At home patient's was concerned due to worsening shortness of breath and noted confusion, so she brought him to the ED for further evaluation. On arrival he was hypoxic on room air, which improved to 95% with 15 L nonrebreather. Labs on admission showed CRP 68.5, AST 118, ALT 83, albumin 2.9, D-dimer 1.74. Chest x-ray showed extensive bilateral patchy airspace disease. CT head showed mild small vessel ischemic changes. CTA chest showed bilateral adrenal nodules, extensive bilateral patchy groundglass changes concerning for viral process, negative for PE. He received steroids and broad-spectrum IV antibiotics in ED. Will admit patient for further medical management. 06/24/2021: Afebrile, resting comfortably in bed, currently breathing on 15 L nasal cannula. Appreciate pulmonology recommendations and management of this patient. We will continue remdesivir to complete 5-day course (last day should be 06/26/2021). Continue steroids for 10-day course, with slow taper. Continue empiric antibiotics. 06/25/2021: Afebrile. Still breathing on 15 L nasal cannula. Last day remdesivir should be tomorrow. Continue empiric antibiotics. Continue steroids to complete a 10-day course with slow taper. 06/26/2021: Afebrile, requiring 15 L nonrebreather. Last dose of remdesivir yesterday. Continue empiric antibiotics and steroids to complete 10-day course (will begin slow Decadron taper 07/03) continue supportive care. 06/27/2021: Patient remains on 15 L nonrebreather. Afebrile. S/P remdesivir. Chest x-ray this morning showed worsening nearly diffuse bilateral pulmonary infiltrates, consistent with known COVID 19 pneumonia. Continue empiric anti biotics; will obtain procalcitonin. Continue steroids to complete 10-day course (with slow Decadron taper to begin 07/03). Continue supportive care. 06/28/2021: Afebrile. States he is not feeling well this morning, having difficulty catching his breath. Breathing on 15 L nonrebreather. Discussed with patient that if his oxygen saturation stayed in low 90s to upper 80s that he would likely benefit from BiPAP, and patient is agreeable. Continue steroids and empiric antibiotics. S/P remdesivir. Vitals/I&O Vitals/I&O: Vital Signs Date Time Temp Pulse Resp B/P (MAP) Pulse Ox O2 Delivery O2 Flow Rate FiO2 06/28/21 03:00 96.4 61 20 140/69 (92) 90 Room Air 96.4 06/27/21 20:00 15.0 I & O 06/27/21 06/27/21 06/28/21 15:00 23:00 07:00 Intake Total 200 ml Output Total 450 ml Balance -250 ml Physical Exam General: Alert, mild distress Heart: Regular rate Lungs: Other (Decreased breath sounds bilaterally) Abdomen: Soft, No tenderness Extremities: No clubbing, No cyanosis Skin: No rashes, No breakdown Labs Labs: Laboratory Tests Test 06/28/21 07:00 Procalcitonin < 0.10 ng/mL (0.00-0.10) Assessment and Plan Assessmemt and Plan Problems Medical Problems: (1) Acute respiratory failure due to COVID-19 Status: Acute (2) Adrenal nodule Status: Acute (3) COVID-19 Status: Acute Comment Review of Relevant I have reviewed the following items lisa (where applicable) has been applied. Medications: Current Medications Medications (Trade) Dose Ordered Sig/Beth Route PRN Reason Start Time Stop Time Status Last Admin Dose Admin Albuterol Sulfate (Ventolin Hfa) 2 puff PRN Q4HRS PRN INH SHORTNESS OF BREATH 06/28/21 03:00 06/28/21 02:55 Justifications for Admission Other Justification ERIK LIU MD Jun 28, 2021 09:01
[2021-06-28] MEDS: ASCORBIC ACID 1,000 MG TABLET PO SCH ×3 (09:09→21:47)
[2021-06-28] MEDS: THIAMINE 100 MG TABLET. PO SCH (09:09)
[2021-06-28] MEDS: LACTOBACILLUS RHAMNOSUS GG 1 CAPSULE. PO SCH ×2 (09:10→21:47)
[2021-06-28] MEDS: ZINC SULFATE 220 MG CAPSULE. PO SCH (09:10)
[2021-06-28] MEDS: DEXAMETHASONE SOD PHOS 4 MG/ML VIAL IVP SCH (09:10)
[2021-06-28] MEDS: PANTOPRAZOLE 40 MG TABLET.DR. PO SCH (09:10)
--- NOTE | 2021-06-28 10:03 | PDOC ---
PULMONARY PROGRESS NOTES DATE: 06/28/21 TIME: 10:02 Subjective no increase soa remains on high flow canula, 100% FiO2 and a nonrebreather mask. Vitals Vital Signs Date Time Temp Pulse Resp B/P (MAP) Pulse Ox O2 Delivery O2 Flow Rate FiO2 06/28/21 07:00 97.7 65 18 139/67 (91) 90 Room Air 97.7 06/27/21 20:00 15.0 Comments Visual exam done due to COVID-19 pneumonia. No obvious respiratory distress. No obvious skin rash no leg edema General: Alert, No acute distress Labs Laboratory Tests Test 06/27/21 07:25 06/28/21 07:00 Total Bilirubin 1.6 mg/dL (0.2-1.0) Direct Bilirubin 0.5 mg/dL (0.0-0.2) Aspartate Amino Transf (AST/SGOT) 41 U/L (15-37) Alanine Aminotransferase (ALT/SGPT) 71 U/L (16-63) Alkaline Phosphatase 61 U/L (46-116) Total Protein 6.2 g/dL (6.4-8.2) Albumin 2.4 g/dL (3.4-5.0) Procalcitonin < 0.10 ng/mL (0.00-0.10) Laboratory Tests Test 06/28/21 07:00 Procalcitonin < 0.10 ng/mL (0.00-0.10) Medications Active Scripts Medications Dose Route/Sig Max Daily Dose Days Date Category Tadalafil 5 Mg Tablet 5 Mg PO DAILY 06/23/21 Reported Flomax (Tamsulosin Hcl) 0.4 Mg Cap.er.24h 0.4 Mg PO HS 06/23/21 Reported Atorvastatin Calcium 40 Mg Tablet 40 Mg PO HS 06/23/21 Reported Comments CTA chest reviewed COVID pneumonia Impression . 1. Acute hypoxemic respiratory failure, acute, secondary to COVID-19 viral pneumonia./Acute lung injury/early ARDS. 2. COVID-19 viral pneumonia. 3. Abnormal x-ray. 4. CTA revealed no evidence of pulmonary emboli. 5. non smoker Plan . PLAN: 1. Continue current support with oxygen supplementation. 15 L high flow cannula. and a nonrebreather mask. 2. Steroids. 3. Remdesivir. 4. Empiric antibiotics. 5. DVT prophylaxis. 6. Monitor respiratory status closely. so far stable DEANN LINDSAY MD Jun 28, 2021 10:03
[2021-06-28 11:00] VITALS: BP 132/65
[2021-06-28] MEDS: AA 4.25 %/CALCIUM/LYTES/D5W 1,000 ML IV SCH (12:25)
[2021-06-28] MEDS: IPRATROPIUM/ALBUTEROL 20/100mcg/INH INHALER. INH SCH ×3 (12:25→19:00)
[2021-06-28 15:00] VITALS: BP 131/64
[2021-06-28 19:52] VITALS: BP 151/67
[2021-06-28] MEDS: ATORVASTATIN CALCIUM 40 MG TABLET. PO SCH (21:47)
[2021-06-28] MEDS: TAMSULOSIN 0.4 MG CAP.ER.24H. PO SCH (21:47)
[2021-06-28] MEDS: ENOXAPARIN 40 MG/0.4 ML SYRINGE. SQ SCH (21:48)
[2021-06-28] MEDS: cefTRIAXone IV Push 1 GM VIAL. IVP SCH (21:48)
[2021-06-28 23:28] VITALS: BP 154/71
[2021-06-29] MEDS: AA 4.25 %/CALCIUM/LYTES/D5W 1,000 ML IV SCH ×3 (00:54→22:46)
[2021-06-29 03:42] VITALS: BP 155/76
[2021-06-29 07:00] VITALS: BP 161/74
[2021-06-29] MEDS: IPRATROPIUM/ALBUTEROL 20/100mcg/INH INHALER. INH SCH ×4 (08:25→21:34)
[2021-06-29] MEDS: ZINC SULFATE 220 MG CAPSULE. PO SCH (08:26)
[2021-06-29] MEDS: THIAMINE 100 MG TABLET. PO SCH (08:26)
[2021-06-29] MEDS: PANTOPRAZOLE 40 MG TABLET.DR. PO SCH (08:26)
[2021-06-29] MEDS: LACTOBACILLUS RHAMNOSUS GG 1 CAPSULE. PO SCH ×2 (08:26→21:35)
[2021-06-29] MEDS: ASCORBIC ACID 1,000 MG TABLET PO SCH ×3 (08:27→21:35)
[2021-06-29] MEDS: DEXAMETHASONE SOD PHOS 4 MG/ML VIAL IVP SCH (08:27)
--- NOTE | 2021-06-29 09:59 | PDOC ---
[facility] PROGRESS NOTE Date of Service DOS: DATE: 06/29/21 TIME: 09:54 Chief Complaint Chief Complaint Acute respiratory failure with hypoxia COVID-19 pneumonia Bilateral adrenal nodules Plan: Consultation placed to pulmonology We will continue treatment with remdesivir and Decadron We will closely monitor LFTs Empiric antibiotics Supportive care, vitamin C. Resume home medications FEN - Cardiac diet PPX - Lovenox DNR Dispo - inpatient for above Surrogate decision maker is his (Jordan Farfan) History of Present Illness History of Present Illness Patient is a 71-year-old male with past medical history BPH, HLD, who presents to the ED with complaints of worsening shortness of breath over the past 3 days. He reports associated productive cough and lethargy. At home patient's was concerned due to worsening shortness of breath and noted confusion, so she brought him to the ED for further evaluation. On arrival he was hypoxic on room air, which improved to 95% with 15 L nonrebreather. Labs on admission showed CRP 68.5, AST 118, ALT 83, albumin 2.9, D-dimer 1.74. Chest x-ray showed extensive bilateral patchy airspace disease. CT head showed mild small vessel ischemic changes. CTA chest showed bilateral adrenal nodules, extensive bilateral patchy groundglass changes concerning for viral process, negative for PE. He received steroids and broad-spectrum IV antibiotics in ED. Will admit patient for further medical management. 06/24/2021: Afebrile, resting comfortably in bed, currently breathing on 15 L nasal cannula. Appreciate pulmonology recommendations and management of this patient. We will continue remdesivir to complete 5-day course (last day should be 06/26/2021). Continue steroids for 10-day course, with slow taper. Continue empiric antibiotics. 06/25/2021: Afebrile. Still breathing on 15 L nasal cannula. Last day remdesivir should be tomorrow. Continue empiric antibiotics. Continue steroids to complete a 10-day course with slow taper. 06/26/2021: Afebrile, requiring 15 L nonrebreather. Last dose of remdesivir yesterday. Continue empiric antibiotics and steroids to complete 10-day course (will begin slow Decadron taper 07/03) continue supportive care. 06/27/2021: Patient remains on 15 L nonrebreather. Afebrile. S/P remdesivir. Chest x-ray this morning showed worsening nearly diffuse bilateral pulmonary infiltrates, consistent with known COVID 19 pneumonia. Continue empiric anti biotics; will obtain procalcitonin. Continue steroids to complete 10-day course (with slow Decadron taper to begin 07/03). Continue supportive care. 06/28/2021: Afebrile. States he is not feeling well this morning, having difficulty catching his breath. Breathing on 15 L nonrebreather. Discussed with patient that if his oxygen saturation stayed in low 90s to upper 80s that he would likely benefit from BiPAP, and patient is agreeable. Continue steroids and empiric antibiotics. S/P remdesivir. 06/29/2021: Afebrile. Remains on 15 L nonrebreather. States he is breathing slightly better than yesterday. S/P remdesivir. Procalcitonin yesterday <0.10; will discontinue Rocephin and continue empiric treatment with p.o. azithromycin. Continue steroids to complete 10-day course (07/03). Continue supportive care. Vitals/I&O Vitals/I&O: Vital Signs Date Time Temp Pulse Resp B/P (MAP) Pulse Ox O2 Delivery O2 Flow Rate FiO2 06/29/21 07:00 98.5 70 24 161/74 (103) 97 NonRebreather Mask 15.0 98.5 I & O 06/28/21 06/28/21 06/29/21 15:00 23:00 07:00 Intake Total 300 ml 240 ml 320 ml Output Total 650 ml 700 ml Balance 300 ml -410 ml -380 ml Physical Exam General: Alert, Oriented X3, Cooperative, mild distress Heart: Regular rate Lungs: Other (Increased work of breathing) Abdomen: Soft, No tenderness Extremities: No clubbing, No cyanosis Skin: No rashes, No breakdown Assessment and Plan Assessmemt and Plan Problems Medical Problems: (1) Acute respiratory failure due to COVID-19 Status: Acute (2) Adrenal nodule Status: Acute (3) COVID-19 Status: Acute Comment Review of Relevant I have reviewed the following items lisa (where applicable) has been applied. Medications: Current Medications Medications (Trade) Dose Ordered Sig/Beth Route PRN Reason Start Time Stop Time Status Last Admin Dose Admin Amino Acids/ Electrolytes/ Dextrose 1,000 ml @ 80 mls/hr [id number] IV 06/28/21 12:30 06/29/21 00:54 Albuterol/ Ipratropium (Combivent Respimat 20-100 Mcg) 1 puff RTQID INH 06/28/21 12:00 06/29/21 08:25 Justifications for Admission Other Justification ERIK LIU MD Jun 29, 2021 09:59
--- NOTE | 2021-06-29 10:58 | PDOC ---
PULMONARY PROGRESS NOTES DATE: 06/29/21 TIME: 10:57 Subjective no increase soa remains on high flow canula, 100% FiO2 and a nonrebreather mask. Vitals Vital Signs Date Time Temp Pulse Resp B/P (MAP) Pulse Ox O2 Delivery O2 Flow Rate FiO2 06/29/21 08:00 Non-Rebreather 15.0 06/29/21 07:00 98.5 70 24 161/74 (103) 97 98.5 Comments Visual exam done due to COVID-19 pneumonia. No obvious respiratory distress. No obvious skin rash no leg edema General: No acute distress Labs Laboratory Tests Test 06/28/21 07:00 Procalcitonin < 0.10 ng/mL (0.00-0.10) Medications Active Scripts Medications Dose Route/Sig Max Daily Dose Days Date Category Tadalafil 5 Mg Tablet 5 Mg PO DAILY 06/23/21 Reported Flomax (Tamsulosin Hcl) 0.4 Mg Cap.er.24h 0.4 Mg PO HS 06/23/21 Reported Atorvastatin Calcium 40 Mg Tablet 40 Mg PO HS 06/23/21 Reported Comments CTA chest reviewed COVID pneumonia Impression . 1. Acute hypoxemic respiratory failure, acute, secondary to COVID-19 viral pneumonia./Acute lung injury/early ARDS. 2. COVID-19 viral pneumonia. 3. Abnormal x-ray. 4. CTA revealed no evidence of pulmonary emboli. 5. non smoker 6. Abnormal liver function test with mildly increased bilirubin. Plan . PLAN: 1. Continue current support with oxygen supplementation. 15 L high flow cannula. and a nonrebreather mask. 2. Steroids. 3. Remdesivir. 4. Empiric antibiotics. 5. DVT prophylaxis. 6. Monitor respiratory status closely. so far stable DEANN LINDSAY MD Jun 29, 2021 10:58
[2021-06-29 11:00] VITALS: BP 135/65
[2021-06-29] MEDS ORDERED: AZITHROMYCIN 250 MG TABLET. PO ONE (11:00)
[2021-06-29 15:00] VITALS: BP 153/76
[2021-06-29 19:00] VITALS: BP 161/74
[2021-06-29] MEDS: TAMSULOSIN 0.4 MG CAP.ER.24H. PO SCH (21:35)
[2021-06-29] MEDS: guaiFENesin/CODEINE 100mg/10mg 5 ML LIQUID PO PRN (21:35)
[2021-06-29] MEDS: ENOXAPARIN 40 MG/0.4 ML SYRINGE. SQ SCH (21:35)
[2021-06-29] MEDS: ATORVASTATIN CALCIUM 40 MG TABLET. PO SCH (21:35)
[2021-06-29 23:02] VITALS: BP 169/86
[2021-06-30 03:05] VITALS: BP 145/79
[2021-06-30] MEDS: guaiFENesin/CODEINE 100mg/10mg 5 ML LIQUID PO PRN (03:47)
[2021-06-30 06:47] LABS: BASO % 0 % (0-3); EOS # 0.4 x10^3/uL (0.0-0.7); EOS % 4 % (0-3); HEMATOCRIT 42.8 % (39.0-53.0); HEMOGLOBIN 14.8 g/dL (13.0-17.5); LYMPH % 10 % (24-48); MEAN CORPUSCULAR HEMOGLOBIN 32 pg (25-35); MEAN CORPUSCULAR HGB CONC 35 g/dL (31-37); MEAN CORPUSCULAR VOLUME 93 fL (79-100); MONO # 0.7 x10^3/uL (0.0-1.1); MONO % 7 % (0-9); NEUT # 8.5 x10^3/uL (1.8-7.7); NEUT % 80 % (31-73); PLATELET COUNT 184 x10^3/uL (140-400); RED BLOOD COUNT 4.62 x10^6/uL (4.30-5.70); RED CELL DISTRIBUTION WIDTH 13.6 % (11.5-14.5); WHITE BLOOD COUNT 10.7 x10^3/uL (4.0-11.0)
[2021-06-30 07:00] VITALS: BP 169/77
[2021-06-30 07:01] LABS: CALCIUM 8.5 mg/dL (8.5-10.1); CREATININE 0.7 mg/dL (0.7-1.3); GFR 110.5
[2021-06-30] MEDS: IPRATROPIUM/ALBUTEROL 20/100mcg/INH INHALER. INH SCH ×4 (08:25→20:00)
[2021-06-30] MEDS: PANTOPRAZOLE 40 MG TABLET.DR. PO SCH (08:25)
[2021-06-30] MEDS: THIAMINE 100 MG TABLET. PO SCH (08:27)
[2021-06-30] MEDS: DEXAMETHASONE SOD PHOS 4 MG/ML VIAL IVP SCH (08:27)
[2021-06-30] MEDS: AZITHROMYCIN 250 MG TABLET. PO SCH (08:27)
[2021-06-30] MEDS: LACTOBACILLUS RHAMNOSUS GG 1 CAPSULE. PO SCH ×2 (08:27→21:04)
[2021-06-30] MEDS: ASCORBIC ACID 1,000 MG TABLET PO SCH ×3 (08:27→21:04)
[2021-06-30] MEDS: ZINC SULFATE 220 MG CAPSULE. PO SCH (08:27)
--- NOTE | 2021-06-30 09:11 | PDOC ---
PULMONARY PROGRESS NOTES DATE: 06/30/21 TIME: 09:11 Subjective Patient feels about the same, remains on high flow canula, 100% FiO2 and a nonrebreather mask. Vitals Vital Signs Date Time Temp Pulse Resp B/P (MAP) Pulse Ox O2 Delivery O2 Flow Rate FiO2 06/30/21 08:25 Non-Rebreather 15.0 06/30/21 07:00 98.6 72 18 169/77 (107) 87 98.6 Comments Visual exam done due to COVID-19 pneumonia. No obvious respiratory distress. No obvious skin rash no leg edema General: No acute distress Lungs: Other (Increased work of breathing) Labs Laboratory Tests Test 06/30/21 05:50 White Blood Count 10.7 x10^3/uL (4.0-11.0) Red Blood Count 4.62 x10^6/uL (4.30-5.70) Hemoglobin 14.8 g/dL (13.0-17.5) Hematocrit 42.8 % (39.0-53.0) Mean Corpuscular Volume 93 fL (79-100) Mean Corpuscular Hemoglobin 32 pg (25-35) Mean Corpuscular Hemoglobin Concent 35 g/dL (31-37) Red Cell Distribution Width 13.6 % (11.5-14.5) Platelet Count 184 x10^3/uL (140-400) Neutrophils (%) (Auto) 80 % (31-73) Lymphocytes (%) (Auto) 10 % (24-48) Monocytes (%) (Auto) 7 % (0-9) Eosinophils (%) (Auto) 4 % (0-3) Basophils (%) (Auto) 0 % (0-3) Neutrophils # (Auto) 8.5 x10^3/uL (1.8-7.7) Lymphocytes # (Auto) 1.0 x10^3/uL (1.0-4.8) Monocytes # (Auto) 0.7 x10^3/uL (0.0-1.1) Eosinophils # (Auto) 0.4 x10^3/uL (0.0-0.7) Basophils # (Auto) 0.0 x10^3/uL (0.0-0.2) Sodium Level 134 mmol/L (136-145) Potassium Level 4.0 mmol/L (3.5-5.1) Chloride Level 100 mmol/L (98-107) Carbon Dioxide Level 29 mmol/L (21-32) Anion Gap 5 (6-14) Blood Urea Nitrogen 16 mg/dL (8-26) Creatinine 0.7 mg/dL (0.7-1.3) Estimated GFR (Cockcroft-Gault) 110.5 Glucose Level 108 mg/dL (70-99) Calcium Level 8.5 mg/dL (8.5-10.1) Laboratory Tests Test 06/30/21 05:50 White Blood Count 10.7 x10^3/uL (4.0-11.0) Red Blood Count 4.62 x10^6/uL (4.30-5.70) Hemoglobin 14.8 g/dL (13.0-17.5) Hematocrit 42.8 % (39.0-53.0) Mean Corpuscular Volume 93 fL (79-100) Mean Corpuscular Hemoglobin 32 pg (25-35) Mean Corpuscular Hemoglobin Concent 35 g/dL (31-37) Red Cell Distribution Width 13.6 % (11.5-14.5) Platelet Count 184 x10^3/uL (140-400) Neutrophils (%) (Auto) 80 % (31-73) Lymphocytes (%) (Auto) 10 % (24-48) Monocytes (%) (Auto) 7 % (0-9) Eosinophils (%) (Auto) 4 % (0-3) Basophils (%) (Auto) 0 % (0-3) Neutrophils # (Auto) 8.5 x10^3/uL (1.8-7.7) Lymphocytes # (Auto) 1.0 x10^3/uL (1.0-4.8) Monocytes # (Auto) 0.7 x10^3/uL (0.0-1.1) Eosinophils # (Auto) 0.4 x10^3/uL (0.0-0.7) Basophils # (Auto) 0.0 x10^3/uL (0.0-0.2) Sodium Level 134 mmol/L (136-145) Potassium Level 4.0 mmol/L (3.5-5.1) Chloride Level 100 mmol/L (98-107) Carbon Dioxide Level 29 mmol/L (21-32) Anion Gap 5 (6-14) Blood Urea Nitrogen 16 mg/dL (8-26) Creatinine 0.7 mg/dL (0.7-1.3) Estimated GFR (Cockcroft-Gault) 110.5 Glucose Level 108 mg/dL (70-99) Calcium Level 8.5 mg/dL (8.5-10.1) Medications Active Scripts Medications Dose Route/Sig Max Daily Dose Days Date Category Tadalafil 5 Mg Tablet 5 Mg PO DAILY 06/23/21 Reported Flomax (Tamsulosin Hcl) 0.4 Mg Cap.er.24h 0.4 Mg PO HS 06/23/21 Reported Atorvastatin Calcium 40 Mg Tablet 40 Mg PO HS 06/23/21 Reported Comments CTA chest reviewed COVID pneumonia Impression . 1. Acute hypoxemic respiratory failure, acute, secondary to COVID-19 viral pneumonia./Acute lung injury/early ARDS. 2. COVID-19 viral pneumonia. 3. Abnormal x-ray. 4. CTA revealed no evidence of pulmonary emboli. 5. non smoker 6. Abnormal liver function test with mildly increased bilirubin. Plan . We will continue high flow oxygen nonrebreather, with nasal cannula Steroids Remdesivir DVT prophylaxis PLAN: 1. Continue current support with oxygen supplementation. 15 L high flow cannula. and a nonrebreather mask. 2. Steroids. 3. Remdesivir. 4. Empiric antibiotics. 5. DVT prophylaxis. 6. Monitor respiratory status closely. so far stable FOREIGN BYRD MD Jun 30, 2021 09:11
[2021-06-30 11:00] VITALS: BP 158/80
[2021-06-30] MEDS: AA 4.25 %/CALCIUM/LYTES/D5W 1,000 ML IV SCH (11:43)
--- NOTE | 2021-06-30 13:27 | PDOC ---
[facility] PROGRESS NOTE Date of Service DOS: DATE: 06/30/21 TIME: 13:22 Chief Complaint Chief Complaint Acute respiratory failure with hypoxia COVID-19 pneumonia Bilateral adrenal nodules Plan: Consultation placed to pulmonology We will continue treatment with remdesivir and Decadron We will closely monitor LFTs Empiric antibiotics Supportive care, vitamin C. Resume home medications FEN - Cardiac diet PPX - Lovenox DNR Dispo - inpatient for above Surrogate decision maker is his (Jordan Farfan) History of Present Illness History of Present Illness Patient is a 71-year-old male with past medical history BPH, HLD, who presents to the ED with complaints of worsening shortness of breath over the past 3 days. He reports associated productive cough and lethargy. At home patient's was concerned due to worsening shortness of breath and noted confusion, so she brought him to the ED for further evaluation. On arrival he was hypoxic on room air, which improved to 95% with 15 L nonrebreather. Labs on admission showed CRP 68.5, AST 118, ALT 83, albumin 2.9, D-dimer 1.74. Chest x-ray showed extensive bilateral patchy airspace disease. CT head showed mild small vessel ischemic changes. CTA chest showed bilateral adrenal nodules, extensive bilateral patchy groundglass changes concerning for viral process, negative for PE. He received steroids and broad-spectrum IV antibiotics in ED. Will admit patient for further medical management. 06/24/2021: Afebrile, resting comfortably in bed, currently breathing on 15 L nasal cannula. Appreciate pulmonology recommendations and management of this patient. We will continue remdesivir to complete 5-day course (last day should be 06/26/2021). Continue steroids for 10-day course, with slow taper. Continue empiric antibiotics. 06/25/2021: Afebrile. Still breathing on 15 L nasal cannula. Last day remdesivir should be tomorrow. Continue empiric antibiotics. Continue steroids to complete a 10-day course with slow taper. 06/26/2021: Afebrile, requiring 15 L nonrebreather. Last dose of remdesivir yesterday. Continue empiric antibiotics and steroids to complete 10-day course (will begin slow Decadron taper 07/03) continue supportive care. 06/27/2021: Patient remains on 15 L nonrebreather. Afebrile. S/P remdesivir. Chest x-ray this morning showed worsening nearly diffuse bilateral pulmonary infiltrates, consistent with known COVID 19 pneumonia. Continue empiric anti biotics; will obtain procalcitonin. Continue steroids to complete 10-day course (with slow Decadron taper to begin 07/03). Continue supportive care. 06/28/2021: Afebrile. States he is not feeling well this morning, having difficulty catching his breath. Breathing on 15 L nonrebreather. Discussed with patient that if his oxygen saturation stayed in low 90s to upper 80s that he would likely benefit from BiPAP, and patient is agreeable. Continue steroids and empiric antibiotics. S/P remdesivir. 06/29/2021: Afebrile. Remains on 15 L nonrebreather. States he is breathing slightly better than yesterday. S/P remdesivir. Procalcitonin yesterday <0.10; will discontinue Rocephin and continue empiric treatment with p.o. azithromycin. Continue steroids to complete 10-day course (07/03). Continue supportive care. 06/30/2021 No acute events overnight. Patient seen examined bedside. Saturating low 90s on 15 L nonrebreather and nasal cannula. Consider transfer to the ICU. Patient's chart, labs, images were reviewed and discussed with RN patient's chart, labs, images were reviewed and discussed with RN again. Vitals/I&O Vitals/I&O: Vital Signs Date Time Temp Pulse Resp B/P (MAP) Pulse Ox O2 Delivery O2 Flow Rate FiO2 06/30/21 11:00 97.9 74 18 158/80 (106) 89 NonRebreather Mask 15.0 97.9 I & O 06/29/21 06/29/21 06/30/21 15:00 23:00 07:00 Intake Total 1200 ml 420 ml Output Total 250 ml 450 ml Balance -250 ml 1200 ml -30 ml Physical Exam General: Alert, Oriented X3, Cooperative, mild distress Heart: Regular rate Lungs: Other (Increased work of breathing) Abdomen: Soft, No tenderness Extremities: No clubbing, No cyanosis Skin: No rashes, No breakdown Labs Labs: Laboratory Tests Test 06/30/21 05:50 White Blood Count 10.7 x10^3/uL (4.0-11.0) Red Blood Count 4.62 x10^6/uL (4.30-5.70) Hemoglobin 14.8 g/dL (13.0-17.5) Hematocrit 42.8 % (39.0-53.0) Mean Corpuscular Volume 93 fL (79-100) Mean Corpuscular Hemoglobin 32 pg (25-35) Mean Corpuscular Hemoglobin Concent 35 g/dL (31-37) Red Cell Distribution Width 13.6 % (11.5-14.5) Platelet Count 184 x10^3/uL (140-400) Neutrophils (%) (Auto) 80 % (31-73) Lymphocytes (%) (Auto) 10 % (24-48) Monocytes (%) (Auto) 7 % (0-9) Eosinophils (%) (Auto) 4 % (0-3) Basophils (%) (Auto) 0 % (0-3) Neutrophils # (Auto) 8.5 x10^3/uL (1.8-7.7) Lymphocytes # (Auto) 1.0 x10^3/uL (1.0-4.8) Monocytes # (Auto) 0.7 x10^3/uL (0.0-1.1) Eosinophils # (Auto) 0.4 x10^3/uL (0.0-0.7) Basophils # (Auto) 0.0 x10^3/uL (0.0-0.2) Sodium Level 134 mmol/L (136-145) Potassium Level 4.0 mmol/L (3.5-5.1) Chloride Level 100 mmol/L (98-107) Carbon Dioxide Level 29 mmol/L (21-32) Anion Gap 5 (6-14) Blood Urea Nitrogen 16 mg/dL (8-26) Creatinine 0.7 mg/dL (0.7-1.3) Estimated GFR (Cockcroft-Gault) 110.5 Glucose Level 108 mg/dL (70-99) Calcium Level 8.5 mg/dL (8.5-10.1) Assessment and Plan Assessmemt and Plan Problems Medical Problems: (1) Acute respiratory failure due to COVID-19 Status: Acute (2) Adrenal nodule Status: Acute (3) COVID-19 Status: Acute Comment Review of Relevant I have reviewed the following items lisa (where applicable) has been applied. Medications: Current Medications Medications (Trade) Dose Ordered Sig/Beth Route PRN Reason Start Time Stop Time Status Last Admin Dose Admin Azithromycin (Zithromax) 250 mg DAILY PO 06/30/21 09:00 07/03/21 09:01 06/30/21 08:27 Justifications for Admission Other Justification SONIA RAMIREZ MD Jun 30, 2021 13:27
[2021-06-30 15:00] VITALS: BP 148/70
[2021-06-30 19:00] VITALS: BP 165/80
[2021-06-30] MEDS: TAMSULOSIN 0.4 MG CAP.ER.24H. PO SCH (21:04)
[2021-06-30] MEDS: ATORVASTATIN CALCIUM 40 MG TABLET. PO SCH (21:04)
[2021-06-30] MEDS: ENOXAPARIN 40 MG/0.4 ML SYRINGE. SQ SCH (21:05)
[2021-06-30 23:28] VITALS: BP 159/83
--- NOTE | 2021-07-01 02:15 | NUR ---
Pr on NRB - O2 sats in the upper 80's while lying still in bed. O2 via NC placed back on pt with NRB. O2 sats improved to 91-92%. Pt resps even and unlabored at rest. O2 sats drop into the mid-upper 70's when pt exerts self to get to bedside to use urinal. RN encouraged pt to attempt to use urinal while lying in bed to conserve energy. Pt stated understanding. Will continue to monitor pt status closely
[2021-07-01] MEDS: AA 4.25 %/CALCIUM/LYTES/D5W 1,000 ML IV SCH ×2 (02:40→14:26)
[2021-07-01 03:30] VITALS: BP 147/90
[2021-07-01 07:00] VITALS: BP 146/70
[2021-07-01 07:09] LABS: BASO % 0 % (0-3); EOS # 0.1 x10^3/uL (0.0-0.7); EOS % 1 % (0-3); HEMATOCRIT 43.5 % (39.0-53.0); HEMOGLOBIN 15.4 g/dL (13.0-17.5); LYMPH % 8 % (24-48); MEAN CORPUSCULAR HEMOGLOBIN 33 pg (25-35); MEAN CORPUSCULAR HGB CONC 35 g/dL (31-37); MEAN CORPUSCULAR VOLUME 92 fL (79-100); MONO # 0.7 x10^3/uL (0.0-1.1); MONO % 6 % (0-9); NEUT # 10.4 x10^3/uL (1.8-7.7); NEUT % 85 % (31-73); PLATELET COUNT 179 x10^3/uL (140-400); RED BLOOD COUNT 4.74 x10^6/uL (4.30-5.70); RED CELL DISTRIBUTION WIDTH 13.6 % (11.5-14.5); WHITE BLOOD COUNT 12.3 x10^3/uL (4.0-11.0)
--- NOTE | 2021-07-01 08:47 | PDOC ---
PULMONARY PROGRESS NOTES DATE: 07/01/21 TIME: 08:47 Subjective No new complaints patient feels about the same, remains on high flow canula, 100% FiO2 and a nonrebreather mask. Vitals Vital Signs Date Time Temp Pulse Resp B/P (MAP) Pulse Ox O2 Delivery O2 Flow Rate FiO2 07/01/21 03:30 98.1 66 18 147/90 (109) 92 NonRebreather Mask 15.0 98.1 Comments Visual exam done due to COVID-19 pneumonia. No obvious respiratory distress. No obvious skin rash no leg edema General: No acute distress Lungs: Other (Increased work of breathing) Labs Laboratory Tests Test 06/30/21 05:50 07/01/21 05:40 White Blood Count 10.7 x10^3/uL (4.0-11.0) 12.3 x10^3/uL (4.0-11.0) Red Blood Count 4.62 x10^6/uL (4.30-5.70) 4.74 x10^6/uL (4.30-5.70) Hemoglobin 14.8 g/dL (13.0-17.5) 15.4 g/dL (13.0-17.5) Hematocrit 42.8 % (39.0-53.0) 43.5 % (39.0-53.0) Mean Corpuscular Volume 93 fL (79-100) 92 fL (79-100) Mean Corpuscular Hemoglobin 32 pg (25-35) 33 pg (25-35) Mean Corpuscular Hemoglobin Concent 35 g/dL (31-37) 35 g/dL (31-37) Red Cell Distribution Width 13.6 % (11.5-14.5) 13.6 % (11.5-14.5) Platelet Count 184 x10^3/uL (140-400) 179 x10^3/uL (140-400) Neutrophils (%) (Auto) 80 % (31-73) 85 % (31-73) Lymphocytes (%) (Auto) 10 % (24-48) 8 % (24-48) Monocytes (%) (Auto) 7 % (0-9) 6 % (0-9) Eosinophils (%) (Auto) 4 % (0-3) 1 % (0-3) Basophils (%) (Auto) 0 % (0-3) 0 % (0-3) Neutrophils # (Auto) 8.5 x10^3/uL (1.8-7.7) 10.4 x10^3/uL (1.8-7.7) Lymphocytes # (Auto) 1.0 x10^3/uL (1.0-4.8) 1.0 x10^3/uL (1.0-4.8) Monocytes # (Auto) 0.7 x10^3/uL (0.0-1.1) 0.7 x10^3/uL (0.0-1.1) Eosinophils # (Auto) 0.4 x10^3/uL (0.0-0.7) 0.1 x10^3/uL (0.0-0.7) Basophils # (Auto) 0.0 x10^3/uL (0.0-0.2) 0.0 x10^3/uL (0.0-0.2) Sodium Level 134 mmol/L (136-145) Potassium Level 4.0 mmol/L (3.5-5.1) Chloride Level 100 mmol/L (98-107) Carbon Dioxide Level 29 mmol/L (21-32) Anion Gap 5 (6-14) Blood Urea Nitrogen 16 mg/dL (8-26) Creatinine 0.7 mg/dL (0.7-1.3) Estimated GFR (Cockcroft-Gault) 110.5 Glucose Level 108 mg/dL (70-99) Calcium Level 8.5 mg/dL (8.5-10.1) Laboratory Tests Test 07/01/21 05:40 White Blood Count 12.3 x10^3/uL (4.0-11.0) Red Blood Count 4.74 x10^6/uL (4.30-5.70) Hemoglobin 15.4 g/dL (13.0-17.5) Hematocrit 43.5 % (39.0-53.0) Mean Corpuscular Volume 92 fL (79-100) Mean Corpuscular Hemoglobin 33 pg (25-35) Mean Corpuscular Hemoglobin Concent 35 g/dL (31-37) Red Cell Distribution Width 13.6 % (11.5-14.5) Platelet Count 179 x10^3/uL (140-400) Neutrophils (%) (Auto) 85 % (31-73) Lymphocytes (%) (Auto) 8 % (24-48) Monocytes (%) (Auto) 6 % (0-9) Eosinophils (%) (Auto) 1 % (0-3) Basophils (%) (Auto) 0 % (0-3) Neutrophils # (Auto) 10.4 x10^3/uL (1.8-7.7) Lymphocytes # (Auto) 1.0 x10^3/uL (1.0-4.8) Monocytes # (Auto) 0.7 x10^3/uL (0.0-1.1) Eosinophils # (Auto) 0.1 x10^3/uL (0.0-0.7) Basophils # (Auto) 0.0 x10^3/uL (0.0-0.2) Medications Active Scripts Medications Dose Route/Sig Max Daily Dose Days Date Category Tadalafil 5 Mg Tablet 5 Mg PO DAILY 06/23/21 Reported Flomax (Tamsulosin Hcl) 0.4 Mg Cap.er.24h 0.4 Mg PO HS 06/23/21 Reported Atorvastatin Calcium 40 Mg Tablet 40 Mg PO HS 06/23/21 Reported Comments CTA chest reviewed COVID pneumonia Impression . 1. Acute hypoxemic respiratory failure, acute, secondary to COVID-19 viral pneumonia./Acute lung injury/early ARDS. 2. COVID-19 viral pneumonia. 3. Abnormal x-ray. 4. CTA revealed no evidence of pulmonary emboli. 5. non smoker 6. Abnormal liver function test with mildly increased bilirubin. Plan . Updated 07/01 Continue steroids Continue oxygen DVT prophylaxis Remdesivir 06/30 we will continue high flow oxygen nonrebreather, with nasal cannula Steroids Remdesivir DVT prophylaxis FOREIGN BYRD MD Jul 01, 2021 08:47
[2021-07-01] MEDS: ASCORBIC ACID 1,000 MG TABLET PO SCH ×3 (10:14→21:02)
[2021-07-01] MEDS: guaiFENesin/CODEINE 100mg/10mg 5 ML LIQUID PO PRN (10:14)
[2021-07-01] MEDS: THIAMINE 100 MG TABLET. PO SCH (10:14)
[2021-07-01] MEDS: ZINC SULFATE 220 MG CAPSULE. PO SCH (10:14)
[2021-07-01] MEDS: DEXAMETHASONE SOD PHOS 4 MG/ML VIAL IVP SCH (10:14)
[2021-07-01] MEDS: IPRATROPIUM/ALBUTEROL 20/100mcg/INH INHALER. INH SCH ×4 (10:15→21:02)
[2021-07-01] MEDS: AZITHROMYCIN 250 MG TABLET. PO SCH (10:15)
[2021-07-01] MEDS: LACTOBACILLUS RHAMNOSUS GG 1 CAPSULE. PO SCH ×2 (10:15→21:02)
[2021-07-01] MEDS: PANTOPRAZOLE 40 MG TABLET.DR. PO SCH (10:15)
[2021-07-01 11:00] VITALS: BP 132/90
[2021-07-01 11:37] LABS: % ATYL 1 % (0-0); % EOS 1 % (0-5); % LYMPHS 17 % (24-48); % MONOS 6 % (0-10); % SEGS 75 % (35-66)
[2021-07-01 11:38] LABS: PLT ESTIMATE ADEQUATE (ADEQUATE)
--- NOTE | 2021-07-01 12:17 | PDOC ---
[facility] PROGRESS NOTE Date of Service DOS: DATE: 07/01/21 TIME: 12:16 Chief Complaint Chief Complaint Acute respiratory failure with hypoxia COVID-19 pneumonia Bilateral adrenal nodules Plan: Consultation placed to pulmonology We will continue treatment with remdesivir and Decadron We will closely monitor LFTs Empiric antibiotics Supportive care, vitamin C. Resume home medications FEN - Cardiac diet PPX - Lovenox DNR Dispo - inpatient for above Surrogate decision maker is his (Jordan Farfan) History of Present Illness History of Present Illness Patient is a 71-year-old male with past medical history BPH, HLD, who presents to the ED with complaints of worsening shortness of breath over the past 3 days. He reports associated productive cough and lethargy. At home patient's was concerned due to worsening shortness of breath and noted confusion, so she brought him to the ED for further evaluation. On arrival he was hypoxic on room air, which improved to 95% with 15 L nonrebreather. Labs on admission showed CRP 68.5, AST 118, ALT 83, albumin 2.9, D-dimer 1.74. Chest x-ray showed extensive bilateral patchy airspace disease. CT head showed mild small vessel ischemic changes. CTA chest showed bilateral adrenal nodules, extensive bilateral patchy groundglass changes concerning for viral process, negative for PE. He received steroids and broad-spectrum IV antibiotics in ED. Will admit patient for further medical management. 06/24/2021: Afebrile, resting comfortably in bed, currently breathing on 15 L nasal cannula. Appreciate pulmonology recommendations and management of this patient. We will continue remdesivir to complete 5-day course (last day should be 06/26/2021). Continue steroids for 10-day course, with slow taper. Continue empiric antibiotics. 06/25/2021: Afebrile. Still breathing on 15 L nasal cannula. Last day remdesivir should be tomorrow. Continue empiric antibiotics. Continue steroids to complete a 10-day course with slow taper. 06/26/2021: Afebrile, requiring 15 L nonrebreather. Last dose of remdesivir yesterday. Continue empiric antibiotics and steroids to complete 10-day course (will begin slow Decadron taper 07/03) continue supportive care. 06/27/2021: Patient remains on 15 L nonrebreather. Afebrile. S/P remdesivir. Chest x-ray this morning showed worsening nearly diffuse bilateral pulmonary infiltrates, consistent with known COVID 19 pneumonia. Continue empiric anti biotics; will obtain procalcitonin. Continue steroids to complete 10-day course (with slow Decadron taper to begin 07/03). Continue supportive care. 06/28/2021: Afebrile. States he is not feeling well this morning, having difficulty catching his breath. Breathing on 15 L nonrebreather. Discussed with patient that if his oxygen saturation stayed in low 90s to upper 80s that he would likely benefit from BiPAP, and patient is agreeable. Continue steroids and empiric antibiotics. S/P remdesivir. 06/29/2021: Afebrile. Remains on 15 L nonrebreather. States he is breathing slightly better than yesterday. S/P remdesivir. Procalcitonin yesterday <0.10; will discontinue Rocephin and continue empiric treatment with p.o. azithromycin. Continue steroids to complete 10-day course (07/03). Continue supportive care. 06/30/2021 No acute events overnight. Patient seen examined bedside. Saturating low 90s on 15 L nonrebreather and nasal cannula. Consider transfer to the ICU. Patient's chart, labs, images were reviewed and discussed with RN patient's chart, labs, images were reviewed and discussed with RN again. 07/01/2021 No acute events overnight. Afebrile. Saturating 92% on 10 L nonrebreather. No dyspnea upon my exam. Patient seen and examined bedside. Patient's chart, labs, images were reviewed and discussed with RN Vitals/I&O Vitals/I&O: Vital Signs Date Time Temp Pulse Resp B/P (MAP) Pulse Ox O2 Delivery O2 Flow Rate FiO2 07/01/21 11:00 98.0 65 18 132/90 (104) 90 NonRebreather Mask 15.0 98.0 I & O 06/30/21 06/30/21 07/01/21 15:00 23:00 07:00 Intake Total 700 ml 999 ml Output Total 200 ml 250 ml Balance 700 ml -200 ml 749 ml Physical Exam General: Alert, Oriented X3, Cooperative, mild distress Heart: Regular rate Lungs: Other (Increased work of breathing) Abdomen: Soft, No tenderness Extremities: No clubbing, No cyanosis Skin: No rashes, No breakdown Labs Labs: Laboratory Tests Test 07/01/21 05:40 White Blood Count 12.3 x10^3/uL (4.0-11.0) Red Blood Count 4.74 x10^6/uL (4.30-5.70) Hemoglobin 15.4 g/dL (13.0-17.5) Hematocrit 43.5 % (39.0-53.0) Mean Corpuscular Volume 92 fL (79-100) Mean Corpuscular Hemoglobin 33 pg (25-35) Mean Corpuscular Hemoglobin Concent 35 g/dL (31-37) Red Cell Distribution Width 13.6 % (11.5-14.5) Platelet Count 179 x10^3/uL (140-400) Neutrophils (%) (Auto) 85 % (31-73) Lymphocytes (%) (Auto) 8 % (24-48) Monocytes (%) (Auto) 6 % (0-9) Eosinophils (%) (Auto) 1 % (0-3) Basophils (%) (Auto) 0 % (0-3) Neutrophils # (Auto) 10.4 x10^3/uL (1.8-7.7) Lymphocytes # (Auto) 1.0 x10^3/uL (1.0-4.8) Monocytes # (Auto) 0.7 x10^3/uL (0.0-1.1) Eosinophils # (Auto) 0.1 x10^3/uL (0.0-0.7) Basophils # (Auto) 0.0 x10^3/uL (0.0-0.2) Segmented Neutrophils % 75 % (35-66) Lymphocytes % 17 % (24-48) Atypical Lymphocytes % (Manual) 1 % (0-0) Monocytes % 6 % (0-10) Eosinophils % 1 % (0-5) Platelet Estimate Adequate (ADEQUATE) Assessment and Plan Assessmemt and Plan Problems Medical Problems: (1) Acute respiratory failure due to COVID-19 Status: Acute (2) Adrenal nodule Status: Acute (3) COVID-19 Status: Acute Comment Review of Relevant I have reviewed the following items lisa (where applicable) has been applied. Justifications for Admission Other Justification SONIA RAMIREZ MD Jul 01, 2021 12:17
[2021-07-01 15:00] VITALS: BP 130/81
[2021-07-01 19:00] VITALS: BP 157/79
[2021-07-01] MEDS: TAMSULOSIN 0.4 MG CAP.ER.24H. PO SCH (21:02)
[2021-07-01] MEDS: ATORVASTATIN CALCIUM 40 MG TABLET. PO SCH (21:02)
[2021-07-01] MEDS: ENOXAPARIN 40 MG/0.4 ML SYRINGE. SQ SCH (21:03)
[2021-07-01 23:00] VITALS: BP 136/72
[2021-07-02 03:00] VITALS: BP 150/72
[2021-07-02] MEDS: AA 4.25 %/CALCIUM/LYTES/D5W 1,000 ML IV SCH ×2 (05:13→16:30)
[2021-07-02 07:00] VITALS: BP 139/82
[2021-07-02] MEDS: IPRATROPIUM/ALBUTEROL 20/100mcg/INH INHALER. INH SCH ×4 (07:29→22:29)
[2021-07-02 08:26] LABS: BASO % 0 % (0-3); EOS # 0.2 x10^3/uL (0.0-0.7); EOS % 2 % (0-3); HEMATOCRIT 43.3 % (39.0-53.0); HEMOGLOBIN 14.9 g/dL (13.0-17.5); LYMPH # 1.2 x10^3/uL (1.0-4.8); LYMPH % 11 % (24-48); MEAN CORPUSCULAR HEMOGLOBIN 31 pg (25-35); MEAN CORPUSCULAR HGB CONC 34 g/dL (31-37); MEAN CORPUSCULAR VOLUME 91 fL (79-100); MONO % 9 % (0-9); NEUT # 9.2 x10^3/uL (1.8-7.7); NEUT % 79 % (31-73); PLATELET COUNT 168 x10^3/uL (140-400); RED BLOOD COUNT 4.74 x10^6/uL (4.30-5.70); RED CELL DISTRIBUTION WIDTH 13.6 % (11.5-14.5); WHITE BLOOD COUNT 11.7 x10^3/uL (4.0-11.0)
--- NOTE | 2021-07-02 08:40 | PDOC ---
PULMONARY PROGRESS NOTES DATE: 07/02/21 TIME: 08:40 Subjective Patient on 100% nonrebreather Vitals Vital Signs Date Time Temp Pulse Resp B/P (MAP) Pulse Ox O2 Delivery O2 Flow Rate FiO2 07/02/21 07:00 97.6 81 20 139/82 (101) 89 NonRebreather Mask 15.0 97.6 Comments Visual exam done due to COVID-19 pneumonia. No obvious respiratory distress. No obvious skin rash no leg edema General: No acute distress Lungs: Other (Increased work of breathing) Labs Laboratory Tests Test 07/01/21 05:40 07/02/21 07:55 White Blood Count 12.3 x10^3/uL (4.0-11.0) 11.7 x10^3/uL (4.0-11.0) Red Blood Count 4.74 x10^6/uL (4.30-5.70) 4.74 x10^6/uL (4.30-5.70) Hemoglobin 15.4 g/dL (13.0-17.5) 14.9 g/dL (13.0-17.5) Hematocrit 43.5 % (39.0-53.0) 43.3 % (39.0-53.0) Mean Corpuscular Volume 92 fL (79-100) 91 fL (79-100) Mean Corpuscular Hemoglobin 33 pg (25-35) 31 pg (25-35) Mean Corpuscular Hemoglobin Concent 35 g/dL (31-37) 34 g/dL (31-37) Red Cell Distribution Width 13.6 % (11.5-14.5) 13.6 % (11.5-14.5) Platelet Count 179 x10^3/uL (140-400) 168 x10^3/uL (140-400) Neutrophils (%) (Auto) 85 % (31-73) 79 % (31-73) Lymphocytes (%) (Auto) 8 % (24-48) 11 % (24-48) Monocytes (%) (Auto) 6 % (0-9) 9 % (0-9) Eosinophils (%) (Auto) 1 % (0-3) 2 % (0-3) Basophils (%) (Auto) 0 % (0-3) 0 % (0-3) Neutrophils # (Auto) 10.4 x10^3/uL (1.8-7.7) 9.2 x10^3/uL (1.8-7.7) Lymphocytes # (Auto) 1.0 x10^3/uL (1.0-4.8) 1.2 x10^3/uL (1.0-4.8) Monocytes # (Auto) 0.7 x10^3/uL (0.0-1.1) 1.0 x10^3/uL (0.0-1.1) Eosinophils # (Auto) 0.1 x10^3/uL (0.0-0.7) 0.2 x10^3/uL (0.0-0.7) Basophils # (Auto) 0.0 x10^3/uL (0.0-0.2) 0.0 x10^3/uL (0.0-0.2) Segmented Neutrophils % 75 % (35-66) Lymphocytes % 17 % (24-48) Atypical Lymphocytes % (Manual) 1 % (0-0) Monocytes % 6 % (0-10) Eosinophils % 1 % (0-5) Platelet Estimate Adequate (ADEQUATE) Laboratory Tests Test 07/02/21 07:55 White Blood Count 11.7 x10^3/uL (4.0-11.0) Red Blood Count 4.74 x10^6/uL (4.30-5.70) Hemoglobin 14.9 g/dL (13.0-17.5) Hematocrit 43.3 % (39.0-53.0) Mean Corpuscular Volume 91 fL (79-100) Mean Corpuscular Hemoglobin 31 pg (25-35) Mean Corpuscular Hemoglobin Concent 34 g/dL (31-37) Red Cell Distribution Width 13.6 % (11.5-14.5) Platelet Count 168 x10^3/uL (140-400) Neutrophils (%) (Auto) 79 % (31-73) Lymphocytes (%) (Auto) 11 % (24-48) Monocytes (%) (Auto) 9 % (0-9) Eosinophils (%) (Auto) 2 % (0-3) Basophils (%) (Auto) 0 % (0-3) Neutrophils # (Auto) 9.2 x10^3/uL (1.8-7.7) Lymphocytes # (Auto) 1.2 x10^3/uL (1.0-4.8) Monocytes # (Auto) 1.0 x10^3/uL (0.0-1.1) Eosinophils # (Auto) 0.2 x10^3/uL (0.0-0.7) Basophils # (Auto) 0.0 x10^3/uL (0.0-0.2) Medications Active Scripts Medications Dose Route/Sig Max Daily Dose Days Date Category Tadalafil 5 Mg Tablet 5 Mg PO DAILY 06/23/21 Reported Flomax (Tamsulosin Hcl) 0.4 Mg Cap.er.24h 0.4 Mg PO HS 06/23/21 Reported Atorvastatin Calcium 40 Mg Tablet 40 Mg PO HS 06/23/21 Reported Comments CTA chest reviewed COVID pneumonia Impression . 1. Acute hypoxemic respiratory failure, acute, secondary to COVID-19 viral pneumonia./Acute lung injury/early ARDS. 2. COVID-19 viral pneumonia. 3. Abnormal x-ray. 4. CTA revealed no evidence of pulmonary emboli. 5. non smoker 6. Abnormal liver function test with mildly increased bilirubin. Plan . Updated 07/02 Continue support Oxygen supplementation Steroids Discharge home once safe to do so on oxygen Updated 07/01 Continue steroids Continue oxygen DVT prophylaxis Remdesivir 06/30 we will continue high flow oxygen nonrebreather, with nasal cannula Steroids Remdesivir DVT prophylaxis FOREIGN BYRD MD Jul 02, 2021 08:40
[2021-07-02] MEDS: THIAMINE 100 MG TABLET. PO SCH (09:51)
[2021-07-02] MEDS: DEXAMETHASONE SOD PHOS 4 MG/ML VIAL IVP SCH (09:51)
[2021-07-02] MEDS: LACTOBACILLUS RHAMNOSUS GG 1 CAPSULE. PO SCH ×2 (09:51→22:29)
[2021-07-02] MEDS: ZINC SULFATE 220 MG CAPSULE. PO SCH (09:52)
[2021-07-02] MEDS: ASCORBIC ACID 1,000 MG TABLET PO SCH ×3 (09:52→22:30)
[2021-07-02] MEDS: AZITHROMYCIN 250 MG TABLET. PO SCH (09:53)
[2021-07-02] MEDS: PANTOPRAZOLE 40 MG TABLET.DR. PO SCH (09:53)
[2021-07-02] MEDS: guaiFENesin/CODEINE 100mg/10mg 5 ML LIQUID PO PRN ×2 (09:54→22:33)
[2021-07-02 11:00] VITALS: BP 144/73
[2021-07-02 15:00] VITALS: BP 141/76
--- NOTE | 2021-07-02 15:49 | PDOC ---
[facility] PROGRESS NOTE Date of Service DOS: DATE: 07/02/21 TIME: 15:47 Chief Complaint Chief Complaint Acute respiratory failure with hypoxia COVID-19 pneumonia Bilateral adrenal nodules Plan: Consultation placed to pulmonology We will continue treatment with remdesivir and Decadron We will closely monitor LFTs Empiric antibiotics Supportive care, vitamin C. Resume home medications FEN - Cardiac diet PPX - Lovenox DNR Dispo - inpatient for above Surrogate decision maker is his (Jordan Farfan) History of Present Illness History of Present Illness Patient is a 71-year-old male with past medical history BPH, HLD, who presents to the ED with complaints of worsening shortness of breath over the past 3 days. He reports associated productive cough and lethargy. At home patient's was concerned due to worsening shortness of breath and noted confusion, so she brought him to the ED for further evaluation. On arrival he was hypoxic on room air, which improved to 95% with 15 L nonrebreather. Labs on admission showed CRP 68.5, AST 118, ALT 83, albumin 2.9, D-dimer 1.74. Chest x-ray showed extensive bilateral patchy airspace disease. CT head showed mild small vessel ischemic changes. CTA chest showed bilateral adrenal nodules, extensive bilateral patchy groundglass changes concerning for viral process, negative for PE. He received steroids and broad-spectrum IV antibiotics in ED. Will admit patient for further medical management. 06/24/2021: Afebrile, resting comfortably in bed, currently breathing on 15 L nasal cannula. Appreciate pulmonology recommendations and management of this patient. We will continue remdesivir to complete 5-day course (last day should be 06/26/2021). Continue steroids for 10-day course, with slow taper. Continue empiric antibiotics. 06/25/2021: Afebrile. Still breathing on 15 L nasal cannula. Last day remdesivir should be tomorrow. Continue empiric antibiotics. Continue steroids to complete a 10-day course with slow taper. 06/26/2021: Afebrile, requiring 15 L nonrebreather. Last dose of remdesivir yesterday. Continue empiric antibiotics and steroids to complete 10-day course (will begin slow Decadron taper 07/03) continue supportive care. 06/27/2021: Patient remains on 15 L nonrebreather. Afebrile. S/P remdesivir. Chest x-ray this morning showed worsening nearly diffuse bilateral pulmonary infiltrates, consistent with known COVID 19 pneumonia. Continue empiric anti biotics; will obtain procalcitonin. Continue steroids to complete 10-day course (with slow Decadron taper to begin 07/03). Continue supportive care. 06/28/2021: Afebrile. States he is not feeling well this morning, having difficulty catching his breath. Breathing on 15 L nonrebreather. Discussed with patient that if his oxygen saturation stayed in low 90s to upper 80s that he would likely benefit from BiPAP, and patient is agreeable. Continue steroids and empiric antibiotics. S/P remdesivir. 06/29/2021: Afebrile. Remains on 15 L nonrebreather. States he is breathing slightly better than yesterday. S/P remdesivir. Procalcitonin yesterday <0.10; will discontinue Rocephin and continue empiric treatment with p.o. azithromycin. Continue steroids to complete 10-day course (07/03). Continue supportive care. 06/30/2021 No acute events overnight. Patient seen examined bedside. Saturating low 90s on 15 L nonrebreather and nasal cannula. Consider transfer to the ICU. Patient's chart, labs, images were reviewed and discussed with RN patient's chart, labs, images were reviewed and discussed with RN again. 07/01/2021 No acute events overnight. Afebrile. Saturating 92% on 10 L nonrebreather. No dyspnea upon my exam. Patient seen and examined bedside. Patient's chart, labs, images were reviewed and discussed with RN 07/02/2021 No acute events overnight. Patient seen and examined bedside. Saturating 96% on 15 L nonrebreathing mask. Resting comfortably in bed without any dyspnea or more short of breath. Patient's chart, labs, images were reviewed and discussed with RN Vitals/I&O Vitals/I&O: Vital Signs Date Time Temp Pulse Resp B/P (MAP) Pulse Ox O2 Delivery O2 Flow Rate FiO2 07/02/21 11:00 98.1 67 20 144/73 (96) 95 NonRebreather Mask 15.0 98.1 I & O 07/01/21 07/01/21 07/02/21 15:00 23:00 07:00 Intake Total 340 ml 1933 ml 0 ml Output Total 450 ml 200 ml Balance 340 ml 1483 ml -200 ml Physical Exam General: Alert, Oriented X3, Cooperative, mild distress Heart: Regular rate Lungs: Other (Increased work of breathing) Abdomen: Soft, No tenderness Extremities: No clubbing, No cyanosis Skin: No rashes, No breakdown Labs Labs: Laboratory Tests Test 07/02/21 07:55 White Blood Count 11.7 x10^3/uL (4.0-11.0) Red Blood Count 4.74 x10^6/uL (4.30-5.70) Hemoglobin 14.9 g/dL (13.0-17.5) Hematocrit 43.3 % (39.0-53.0) Mean Corpuscular Volume 91 fL (79-100) Mean Corpuscular Hemoglobin 31 pg (25-35) Mean Corpuscular Hemoglobin Concent 34 g/dL (31-37) Red Cell Distribution Width 13.6 % (11.5-14.5) Platelet Count 168 x10^3/uL (140-400) Neutrophils (%) (Auto) 79 % (31-73) Lymphocytes (%) (Auto) 11 % (24-48) Monocytes (%) (Auto) 9 % (0-9) Eosinophils (%) (Auto) 2 % (0-3) Basophils (%) (Auto) 0 % (0-3) Neutrophils # (Auto) 9.2 x10^3/uL (1.8-7.7) Lymphocytes # (Auto) 1.2 x10^3/uL (1.0-4.8) Monocytes # (Auto) 1.0 x10^3/uL (0.0-1.1) Eosinophils # (Auto) 0.2 x10^3/uL (0.0-0.7) Basophils # (Auto) 0.0 x10^3/uL (0.0-0.2) Assessment and Plan Assessmemt and Plan Problems Medical Problems: (1) Acute respiratory failure due to COVID-19 Status: Acute (2) Adrenal nodule Status: Acute (3) COVID-19 Status: Acute Comment Review of Relevant I have reviewed the following items lisa (where applicable) has been applied. Justifications for Admission Other Justification SONIA RAMIREZ MD Jul 02, 2021 15:49
[2021-07-02 19:00] VITALS: BP 131/62
[2021-07-02] MEDS: ENOXAPARIN 40 MG/0.4 ML SYRINGE. SQ SCH (22:29)
[2021-07-02] MEDS: TAMSULOSIN 0.4 MG CAP.ER.24H. PO SCH (22:29)
[2021-07-02] MEDS: ATORVASTATIN CALCIUM 40 MG TABLET. PO SCH (22:29)
[2021-07-02 23:00] VITALS: BP 142/73
[2021-07-03 03:00] VITALS: BP 160/84
[2021-07-03] MEDS: AA 4.25 %/CALCIUM/LYTES/D5W 1,000 ML IV SCH (05:00)
[2021-07-03 07:00] VITALS: BP 164/77
[2021-07-03 08:22] LABS: BASO % 0 % (0-3); EOS # 0.1 x10^3/uL (0.0-0.7); EOS % 1 % (0-3); HEMATOCRIT 43.8 % (39.0-53.0); HEMOGLOBIN 14.4 g/dL (13.0-17.5); LYMPH # 1.1 x10^3/uL (1.0-4.8); LYMPH % 9 % (24-48); MEAN CORPUSCULAR HEMOGLOBIN 31 pg (25-35); MEAN CORPUSCULAR HGB CONC 33 g/dL (31-37); MEAN CORPUSCULAR VOLUME 93 fL (79-100); MONO # 0.8 x10^3/uL (0.0-1.1); MONO % 7 % (0-9); NEUT # 9.9 x10^3/uL (1.8-7.7); NEUT % 83 % (31-73); PLATELET COUNT 157 x10^3/uL (140-400); RED BLOOD COUNT 4.73 x10^6/uL (4.30-5.70); RED CELL DISTRIBUTION WIDTH 13.8 % (11.5-14.5)
[2021-07-03] MEDS: THIAMINE 100 MG TABLET. PO SCH (08:36)
[2021-07-03] MEDS: PANTOPRAZOLE 40 MG TABLET.DR. PO SCH (08:36)
[2021-07-03] MEDS: ASCORBIC ACID 1,000 MG TABLET PO SCH ×3 (08:36→21:13)
[2021-07-03] MEDS: IPRATROPIUM/ALBUTEROL 20/100mcg/INH INHALER. INH SCH ×4 (08:36→21:14)
[2021-07-03] MEDS: AZITHROMYCIN 250 MG TABLET. PO SCH (08:36)
[2021-07-03] MEDS: ZINC SULFATE 220 MG CAPSULE. PO SCH (08:36)
[2021-07-03] MEDS: LACTOBACILLUS RHAMNOSUS GG 1 CAPSULE. PO SCH ×2 (08:36→21:13)
--- NOTE | 2021-07-03 08:41 | PDOC ---
PULMONARY PROGRESS NOTES DATE: 07/03/21 TIME: 08:41 Subjective Patient not more short of air patient on 100% nonrebreather Vitals Vital Signs Date Time Temp Pulse Resp B/P (MAP) Pulse Ox O2 Delivery O2 Flow Rate FiO2 07/03/21 07:00 97.5 55 22 164/77 (106) 95 NonRebreather Mask 15.0 97.5 Comments Visual exam done due to COVID-19 pneumonia. No obvious respiratory distress. No obvious skin rash no leg edema General: No acute distress Lungs: Other (Increased work of breathing) Labs Laboratory Tests Test 07/02/21 07:55 White Blood Count 11.7 x10^3/uL (4.0-11.0) Red Blood Count 4.74 x10^6/uL (4.30-5.70) Hemoglobin 14.9 g/dL (13.0-17.5) Hematocrit 43.3 % (39.0-53.0) Mean Corpuscular Volume 91 fL (79-100) Mean Corpuscular Hemoglobin 31 pg (25-35) Mean Corpuscular Hemoglobin Concent 34 g/dL (31-37) Red Cell Distribution Width 13.6 % (11.5-14.5) Platelet Count 168 x10^3/uL (140-400) Neutrophils (%) (Auto) 79 % (31-73) Lymphocytes (%) (Auto) 11 % (24-48) Monocytes (%) (Auto) 9 % (0-9) Eosinophils (%) (Auto) 2 % (0-3) Basophils (%) (Auto) 0 % (0-3) Neutrophils # (Auto) 9.2 x10^3/uL (1.8-7.7) Lymphocytes # (Auto) 1.2 x10^3/uL (1.0-4.8) Monocytes # (Auto) 1.0 x10^3/uL (0.0-1.1) Eosinophils # (Auto) 0.2 x10^3/uL (0.0-0.7) Basophils # (Auto) 0.0 x10^3/uL (0.0-0.2) Medications Active Scripts Medications Dose Route/Sig Max Daily Dose Days Date Category Tadalafil 5 Mg Tablet 5 Mg PO DAILY 06/23/21 Reported Flomax (Tamsulosin Hcl) 0.4 Mg Cap.er.24h 0.4 Mg PO HS 06/23/21 Reported Atorvastatin Calcium 40 Mg Tablet 40 Mg PO HS 06/23/21 Reported Comments CTA chest reviewed COVID pneumonia Impression . 1. Acute hypoxemic respiratory failure, acute, secondary to COVID-19 viral pneumonia./ARDS 2. COVID-19 viral pneumonia. Status post remdesivir 3. Abnormal x-ray. 4. CTA revealed no evidence of pulmonary emboli. 5. non smoker 6. Abnormal liver function test with mildly increased bilirubin. Plan . Updated 07/03 Continue current support Oxygen supplementation DVT prophylaxis Still updated 07/02 Continue support Oxygen supplementation Steroids Discharge home once safe to do so on oxygen Updated 07/01 Continue steroids Continue oxygen DVT prophylaxis Remdesivir 06/30 we will continue high flow oxygen nonrebreather, with nasal cannula Steroids Remdesivir DVT prophylaxis FOREIGN BYRD MD Jul 03, 2021 08:41
--- NOTE | 2021-07-03 08:57 | PDOC ---
[facility] PROGRESS NOTE Date of Service DOS: DATE: 07/03/21 TIME: 08:55 Chief Complaint Chief Complaint Acute respiratory failure with hypoxia COVID-19 pneumonia Bilateral adrenal nodules Plan: We will continue treatment with remdesivir and Decadron We will closely monitor LFTs Empiric antibiotics Supportive care, vitamin C. Resume home medications FEN - Cardiac diet PPX - Lovenox DNR Dispo - inpatient for above Surrogate decision maker is his (Jordan Farfan) History of Present Illness History of Present Illness Patient is a 71-year-old male with past medical history BPH, HLD, who presents to the ED with complaints of worsening shortness of breath over the past 3 days. He reports associated productive cough and lethargy. At home patient's was concerned due to worsening shortness of breath and noted confusion, so she brought him to the ED for further evaluation. On arrival he was hypoxic on room air, which improved to 95% with 15 L nonrebreather. Labs on admission showed CRP 68.5, AST 118, ALT 83, albumin 2.9, D-dimer 1.74. Chest x-ray showed extensive bilateral patchy airspace disease. CT head showed mild small vessel ischemic changes. CTA chest showed bilateral adrenal nodules, extensive bilateral patchy groundglass changes concerning for viral process, negative for PE. He received steroids and broad-spectrum IV antibiotics in ED. Will admit patient for further medical management. 06/24/2021: Afebrile, resting comfortably in bed, currently breathing on 15 L nasal cannula. Appreciate pulmonology recommendations and management of this patient. We will continue remdesivir to complete 5-day course (last day should be 06/26/2021). Continue steroids for 10-day course, with slow taper. Continue empiric antibiotics. 06/25/2021: Afebrile. Still breathing on 15 L nasal cannula. Last day remdesivir should be tomorrow. Continue empiric antibiotics. Continue steroids to complete a 10-day course with slow taper. 06/26/2021: Afebrile, requiring 15 L nonrebreather. Last dose of remdesivir yesterday. Continue empiric antibiotics and steroids to complete 10-day course (will begin slow Decadron taper 07/03) continue supportive care. 06/27/2021: Patient remains on 15 L nonrebreather. Afebrile. S/P remdesivir. Chest x-ray this morning showed worsening nearly diffuse bilateral pulmonary infiltrates, consistent with known COVID 19 pneumonia. Continue empiric antibiotics; will obtain procalcitonin. Continue steroids to complete 10-day course (with slow Decadron taper to begin 07/03). Continue supportive care. 06/28/2021: Afebrile. States he is not feeling well this morning, having difficulty catching his breath. Breathing on 15 L nonrebreather. Discussed with patient that if his oxygen saturation stayed in low 90s to upper 80s that he would likely benefit from BiPAP, and patient is agreeable. Continue steroids and empiric antibiotics. S/P remdesivir. 06/29/2021: Afebrile. Remains on 15 L nonrebreather. States he is breathing slightly better than yesterday. S/P remdesivir. Procalcitonin yesterday <0.10; will discontinue Rocephin and continue empiric treatment with p.o. azithromycin. Continue steroids to complete 10-day course (07/03). Continue supportive care. 06/30/2021 No acute events overnight. Patient seen examined bedside. Saturating low 90s on 15 L nonrebreather and nasal cannula. Consider transfer to the ICU. Patient's chart, labs, images were reviewed and discussed with RN patient's chart, labs, images were reviewed and discussed with RN again. 07/01/2021 No acute events overnight. Afebrile. Saturating 92% on 10 L nonrebreather. No dyspnea upon my exam. Patient seen and examined bedside. Patient's chart, labs, images were reviewed and discussed with RN 07/02/2021 No acute events overnight. Patient seen and examined bedside. Saturating 96% on 15 L nonrebreathing mask. Resting comfortably in bed without any dyspnea or more short of breath. Patient's chart, labs, images were reviewed and discussed with RN 07/03/2021 No acute events overnight. Patient seen and examined bedside. Still saturating 95% on 15 L nonrebreather mask. Completed 10-day course of steroids and Remdesivir. Continue with O2 support. Afebrile in last 24 hours. Will look for the possibilities for LTAC placement. Will discuss with pulmonology. Patient's chart, labs, images were reviewed and discussed with RN Vitals/I&O Vitals/I&O: Vital Signs Date Time Temp Pulse Resp B/P (MAP) Pulse Ox O2 Delivery O2 Flow Rate FiO2 07/03/21 07:00 97.5 55 22 164/77 (106) 95 NonRebreather Mask 15.0 97.5 I & O 07/02/21 07/02/21 07/03/21 15:00 23:00 07:00 Output Total 450 ml 175 ml Balance -450 ml -175 ml Physical Exam General: Alert, Oriented X3, Cooperative, mild distress Heart: Regular rate Lungs: Other (Increased work of breathing) Abdomen: Soft, No tenderness Extremities: No clubbing, No cyanosis Skin: No rashes, No breakdown Labs Labs: Laboratory Tests Test 07/03/21 07:40 White Blood Count 12.0 x10^3/uL (4.0-11.0) Red Blood Count 4.73 x10^6/uL (4.30-5.70) Hemoglobin 14.4 g/dL (13.0-17.5) Hematocrit 43.8 % (39.0-53.0) Mean Corpuscular Volume 93 fL (79-100) Mean Corpuscular Hemoglobin 31 pg (25-35) Mean Corpuscular Hemoglobin Concent 33 g/dL (31-37) Red Cell Distribution Width 13.8 % (11.5-14.5) Platelet Count 157 x10^3/uL (140-400) Neutrophils (%) (Auto) 83 % (31-73) Lymphocytes (%) (Auto) 9 % (24-48) Monocytes (%) (Auto) 7 % (0-9) Eosinophils (%) (Auto) 1 % (0-3) Basophils (%) (Auto) 0 % (0-3) Neutrophils # (Auto) 9.9 x10^3/uL (1.8-7.7) Lymphocytes # (Auto) 1.1 x10^3/uL (1.0-4.8) Monocytes # (Auto) 0.8 x10^3/uL (0.0-1.1) Eosinophils # (Auto) 0.1 x10^3/uL (0.0-0.7) Basophils # (Auto) 0.0 x10^3/uL (0.0-0.2) Assessment and Plan Assessmemt and Plan Problems Medical Problems: (1) Acute respiratory failure due to COVID-19 Status: Acute (2) Adrenal nodule Status: Acute (3) COVID-19 Status: Acute Comment Review of Relevant I have reviewed the following items lisa (where applicable) has been applied. Justifications for Admission Other Justification SONIA RAMIREZ MD Jul 03, 2021 08:57
[2021-07-03 11:00] VITALS: BP 138/69
[2021-07-03 15:00] VITALS: BP 152/70
[2021-07-03 19:00] VITALS: BP 143/69
[2021-07-03] MEDS: TAMSULOSIN 0.4 MG CAP.ER.24H. PO SCH (21:13)
[2021-07-03] MEDS: guaiFENesin/CODEINE 100mg/10mg 5 ML LIQUID PO PRN (21:13)
[2021-07-03] MEDS: ENOXAPARIN 40 MG/0.4 ML SYRINGE. SQ SCH (21:13)
[2021-07-03] MEDS: ATORVASTATIN CALCIUM 40 MG TABLET. PO SCH (21:13)
[2021-07-03 23:00] VITALS: BP 126/69
[2021-07-04 03:00] VITALS: BP 126/63
[2021-07-04 07:00] VITALS: BP 141/69
[2021-07-04 07:35] LABS: BASO % 1 % (0-3); EOS # 0.2 x10^3/uL (0.0-0.7); EOS % 3 % (0-3); HEMATOCRIT 43.4 % (39.0-53.0); LYMPH # 1.2 x10^3/uL (1.0-4.8); LYMPH % 14 % (24-48); MEAN CORPUSCULAR HEMOGLOBIN 32 pg (25-35); MEAN CORPUSCULAR HGB CONC 35 g/dL (31-37); MEAN CORPUSCULAR VOLUME 92 fL (79-100); MONO # 0.9 x10^3/uL (0.0-1.1); MONO % 10 % (0-9); NEUT # 6.8 x10^3/uL (1.8-7.7); NEUT % 74 % (31-73); PLATELET COUNT 161 x10^3/uL (140-400); RED CELL DISTRIBUTION WIDTH 13.6 % (11.5-14.5); WHITE BLOOD COUNT 9.2 x10^3/uL (4.0-11.0)
[2021-07-04] MEDS: PANTOPRAZOLE 40 MG TABLET.DR. PO SCH (08:16)
[2021-07-04] MEDS: IPRATROPIUM/ALBUTEROL 20/100mcg/INH INHALER. INH SCH ×4 (08:16→22:55)
[2021-07-04] MEDS: LACTOBACILLUS RHAMNOSUS GG 1 CAPSULE. PO SCH ×2 (08:17→22:56)
[2021-07-04] MEDS: ZINC SULFATE 220 MG CAPSULE. PO SCH (08:17)
[2021-07-04] MEDS: ASCORBIC ACID 1,000 MG TABLET PO SCH ×3 (08:17→22:55)
[2021-07-04] MEDS: THIAMINE 100 MG TABLET. PO SCH (08:17)
--- NOTE | 2021-07-04 08:17 | PDOC ---
PULMONARY PROGRESS NOTES DATE: 07/04/21 TIME: 08:17 Subjective Still requiring high FiO2 Vitals Vital Signs Date Time Temp Pulse Resp B/P (MAP) Pulse Ox O2 Delivery O2 Flow Rate FiO2 07/04/21 07:00 97.3 65 22 141/69 (93) 94 NonRebreather Mask 15.0 97.3 Comments Visual exam done due to COVID-19 pneumonia. No obvious respiratory distress. No obvious skin rash no leg edema General: No acute distress Lungs: Other (Increased work of breathing) Labs Laboratory Tests Test 07/03/21 07:40 07/04/21 06:05 White Blood Count 12.0 x10^3/uL (4.0-11.0) 9.2 x10^3/uL (4.0-11.0) Red Blood Count 4.73 x10^6/uL (4.30-5.70) 4.70 x10^6/uL (4.30-5.70) Hemoglobin 14.4 g/dL (13.0-17.5) 15.0 g/dL (13.0-17.5) Hematocrit 43.8 % (39.0-53.0) 43.4 % (39.0-53.0) Mean Corpuscular Volume 93 fL (79-100) 92 fL (79-100) Mean Corpuscular Hemoglobin 31 pg (25-35) 32 pg (25-35) Mean Corpuscular Hemoglobin Concent 33 g/dL (31-37) 35 g/dL (31-37) Red Cell Distribution Width 13.8 % (11.5-14.5) 13.6 % (11.5-14.5) Platelet Count 157 x10^3/uL (140-400) 161 x10^3/uL (140-400) Neutrophils (%) (Auto) 83 % (31-73) 74 % (31-73) Lymphocytes (%) (Auto) 9 % (24-48) 14 % (24-48) Monocytes (%) (Auto) 7 % (0-9) 10 % (0-9) Eosinophils (%) (Auto) 1 % (0-3) 3 % (0-3) Basophils (%) (Auto) 0 % (0-3) 1 % (0-3) Neutrophils # (Auto) 9.9 x10^3/uL (1.8-7.7) 6.8 x10^3/uL (1.8-7.7) Lymphocytes # (Auto) 1.1 x10^3/uL (1.0-4.8) 1.2 x10^3/uL (1.0-4.8) Monocytes # (Auto) 0.8 x10^3/uL (0.0-1.1) 0.9 x10^3/uL (0.0-1.1) Eosinophils # (Auto) 0.1 x10^3/uL (0.0-0.7) 0.2 x10^3/uL (0.0-0.7) Basophils # (Auto) 0.0 x10^3/uL (0.0-0.2) 0.0 x10^3/uL (0.0-0.2) Laboratory Tests Test 07/04/21 06:05 White Blood Count 9.2 x10^3/uL (4.0-11.0) Red Blood Count 4.70 x10^6/uL (4.30-5.70) Hemoglobin 15.0 g/dL (13.0-17.5) Hematocrit 43.4 % (39.0-53.0) Mean Corpuscular Volume 92 fL (79-100) Mean Corpuscular Hemoglobin 32 pg (25-35) Mean Corpuscular Hemoglobin Concent 35 g/dL (31-37) Red Cell Distribution Width 13.6 % (11.5-14.5) Platelet Count 161 x10^3/uL (140-400) Neutrophils (%) (Auto) 74 % (31-73) Lymphocytes (%) (Auto) 14 % (24-48) Monocytes (%) (Auto) 10 % (0-9) Eosinophils (%) (Auto) 3 % (0-3) Basophils (%) (Auto) 1 % (0-3) Neutrophils # (Auto) 6.8 x10^3/uL (1.8-7.7) Lymphocytes # (Auto) 1.2 x10^3/uL (1.0-4.8) Monocytes # (Auto) 0.9 x10^3/uL (0.0-1.1) Eosinophils # (Auto) 0.2 x10^3/uL (0.0-0.7) Basophils # (Auto) 0.0 x10^3/uL (0.0-0.2) Medications Active Scripts Medications Dose Route/Sig Max Daily Dose Days Date Category Tadalafil 5 Mg Tablet 5 Mg PO DAILY 06/23/21 Reported Flomax (Tamsulosin Hcl) 0.4 Mg Cap.er.24h 0.4 Mg PO HS 06/23/21 Reported Atorvastatin Calcium 40 Mg Tablet 40 Mg PO HS 06/23/21 Reported Comments CTA chest reviewed COVID pneumonia Impression . 1. Acute hypoxemic respiratory failure, acute, secondary to COVID-19 viral pneumonia./ARDS 2. COVID-19 viral pneumonia. Status post remdesivir 3. Abnormal x-ray. 4. CTA revealed no evidence of pulmonary emboli. 5. non smoker 6. Abnormal liver function test with mildly increased bilirubin. Plan . Updated 07/04 Continue current support DVT prophylaxis Oxygen supplementation Updated 07/03 Continue current support Oxygen supplementation DVT prophylaxis Still updated 07/02 Continue support Oxygen supplementation Steroids Discharge home once safe to do so on oxygen FOREIGN BYRD MD Jul 04, 2021 08:17
[2021-07-04 11:00] VITALS: BP 129/74
--- NOTE | 2021-07-04 11:14 | NUR ---
SW following. Discussed with RNEllen sent referral to [facility], however the REV codes are not accurately entered so pt does not qualify per the codes. [facility] are not taking COVID patients at this time. SW will continue to follow.
--- NOTE | 2021-07-04 13:03 | PDOC ---
[facility] PROGRESS NOTE Date of Service DOS: DATE: 07/04/21 TIME: 12:58 Chief Complaint Chief Complaint Acute respiratory failure with hypoxia COVID-19 pneumonia Bilateral adrenal nodules Plan: We will continue treatment with remdesivir and Decadron We will closely monitor LFTs Empiric antibiotics Supportive care, vitamin C. Resume home medications FEN - Cardiac diet PPX - Lovenox DNR Dispo - inpatient for above Surrogate decision maker is his (Jordan Farfan) History of Present Illness History of Present Illness Patient is a 71-year-old male with past medical history BPH, HLD, who presents to the ED with complaints of worsening shortness of breath over the past 3 days. He reports associated productive cough and lethargy. At home patient's was concerned due to worsening shortness of breath and noted confusion, so she brought him to the ED for further evaluation. On arrival he was hypoxic on room air, which improved to 95% with 15 L nonrebreather. Labs on admission showed CRP 68.5, AST 118, ALT 83, albumin 2.9, D-dimer 1.74. Chest x-ray showed extensive bilateral patchy airspace disease. CT head showed mild small vessel ischemic changes. CTA chest showed bilateral adrenal nodules, extensive bilateral patchy groundglass changes concerning for viral process, negative for PE. He received steroids and broad-spectrum IV antibiotics in ED. Will admit patient for further medical management. 06/24/2021: Afebrile, resting comfortably in bed, currently breathing on 15 L nasal cannula. Appreciate pulmonology recommendations and management of this patient. We will continue remdesivir to complete 5-day course (last day should be 06/26/2021). Continue steroids for 10-day course, with slow taper. Continue empiric antibiotics. 06/25/2021: Afebrile. Still breathing on 15 L nasal cannula. Last day remdesivir should be tomorrow. Continue empiric antibiotics. Continue steroids to complete a 10-day course with slow taper. 06/26/2021: Afebrile, requiring 15 L nonrebreather. Last dose of remdesivir yesterday. Continue empiric antibiotics and steroids to complete 10-day course (will begin slow Decadron taper 07/03) continue supportive care. 06/27/2021: Patient remains on 15 L nonrebreather. Afebrile. S/P remdesivir. Chest x-ray this morning showed worsening nearly diffuse bilateral pulmonary infiltrates, consistent with known COVID 19 pneumonia. Continue empiric antibiotics; will obtain procalcitonin. Continue steroids to complete 10-day course (with slow Decadron taper to begin 07/03). Continue supportive care. 06/28/2021: Afebrile. States he is not feeling well this morning, having difficulty catching his breath. Breathing on 15 L nonrebreather. Discussed with patient that if his oxygen saturation stayed in low 90s to upper 80s that he would likely benefit from BiPAP, and patient is agreeable. Continue steroids and empiric antibiotics. S/P remdesivir. 06/29/2021: Afebrile. Remains on 15 L nonrebreather. States he is breathing slightly better than yesterday. S/P remdesivir. Procalcitonin yesterday <0.10; will discontinue Rocephin and continue empiric treatment with p.o. azithromycin. Continue steroids to complete 10-day course (07/03). Continue supportive care. 06/30/2021 No acute events overnight. Patient seen examined bedside. Saturating low 90s on 15 L nonrebreather and nasal cannula. Consider transfer to the ICU. Patient's chart, labs, images were reviewed and discussed with RN patient's chart, labs, images were reviewed and discussed with RN again. 07/01/2021 No acute events overnight. Afebrile. Saturating 92% on 10 L nonrebreather. No dyspnea upon my exam. Patient seen and examined bedside. Patient's chart, labs, images were reviewed and discussed with RN 07/02/2021 No acute events overnight. Patient seen and examined bedside. Saturating 96% on 15 L nonrebreathing mask. Resting comfortably in bed without any dyspnea or more short of breath. Patient's chart, labs, images were reviewed and discussed with RN 07/03/2021 No acute events overnight. Patient seen and examined bedside. Still saturating 95% on 15 L nonrebreather mask. Completed 10-day course of steroids and Remdesivir. Continue with O2 support. Afebrile in last 24 hours. Will look for the possibilities for LTAC placement. Will discuss with pulmonology. Patient's chart, labs, images were reviewed and discussed with RN 07/04/2021 No acute events overnight. Patient seen and examined bedside. Patient saturating 94% on 15 L nasal cannula and as needed nonrebreather. Possible LTAC placement pending. Not more short of air than usual. Patient's chart, labs, images were reviewed and discussed with RN Vitals/I&O Vitals/I&O: Vital Signs Date Time Temp Pulse Resp B/P (MAP) Pulse Ox O2 Delivery O2 Flow Rate FiO2 07/04/21 11:00 97.1 61 22 129/74 (92) 97 Nasal Cannula 15.0 97.1 I & O 07/03/21 07/03/21 07/04/21 15:00 23:00 07:00 Intake Total 240 ml 300 ml 240 ml Output Total 250 ml 500 ml Balance -10 ml -200 ml 240 ml Physical Exam General: Alert, Oriented X3, Cooperative, mild distress Heart: Regular rate Lungs: Other (Increased work of breathing) Abdomen: Soft, No tenderness Extremities: No clubbing, No cyanosis Skin: No rashes, No breakdown Labs Labs: Laboratory Tests Test 07/04/21 06:05 White Blood Count 9.2 x10^3/uL (4.0-11.0) Red Blood Count 4.70 x10^6/uL (4.30-5.70) Hemoglobin 15.0 g/dL (13.0-17.5) Hematocrit 43.4 % (39.0-53.0) Mean Corpuscular Volume 92 fL (79-100) Mean Corpuscular Hemoglobin 32 pg (25-35) Mean Corpuscular Hemoglobin Concent 35 g/dL (31-37) Red Cell Distribution Width 13.6 % (11.5-14.5) Platelet Count 161 x10^3/uL (140-400) Neutrophils (%) (Auto) 74 % (31-73) Lymphocytes (%) (Auto) 14 % (24-48) Monocytes (%) (Auto) 10 % (0-9) Eosinophils (%) (Auto) 3 % (0-3) Basophils (%) (Auto) 1 % (0-3) Neutrophils # (Auto) 6.8 x10^3/uL (1.8-7.7) Lymphocytes # (Auto) 1.2 x10^3/uL (1.0-4.8) Monocytes # (Auto) 0.9 x10^3/uL (0.0-1.1) Eosinophils # (Auto) 0.2 x10^3/uL (0.0-0.7) Basophils # (Auto) 0.0 x10^3/uL (0.0-0.2) Assessment and Plan Assessmemt and Plan Problems Medical Problems: (1) Acute respiratory failure due to COVID-19 Status: Acute (2) Adrenal nodule Status: Acute (3) COVID-19 Status: Acute Comment Review of Relevant I have reviewed the following items lisa (where applicable) has been applied. Justifications for Admission Other Justification SONIA RAMIREZ MD Jul 04, 2021 13:03
[2021-07-04 15:10] VITALS: BP 134/72
[2021-07-04 19:35] VITALS: BP 127/72
[2021-07-04] MEDS: TAMSULOSIN 0.4 MG CAP.ER.24H. PO SCH (22:55)
[2021-07-04] MEDS: ATORVASTATIN CALCIUM 40 MG TABLET. PO SCH (22:55)
[2021-07-04] MEDS: ENOXAPARIN 40 MG/0.4 ML SYRINGE. SQ SCH (22:57)
[2021-07-04 23:19] VITALS: BP 120/67
[2021-07-05 03:34] VITALS: BP 126/61
[2021-07-05 07:00] VITALS: BP 146/71
[2021-07-05] MEDS: ZINC SULFATE 220 MG CAPSULE. PO SCH (09:01)
[2021-07-05] MEDS: LACTOBACILLUS RHAMNOSUS GG 1 CAPSULE. PO SCH ×2 (09:01→21:37)
[2021-07-05] MEDS: ASCORBIC ACID 1,000 MG TABLET PO SCH ×4 (09:01→21:37)
[2021-07-05] MEDS: PANTOPRAZOLE 40 MG TABLET.DR. PO SCH (09:01)
[2021-07-05] MEDS: THIAMINE 100 MG TABLET. PO SCH (09:01)
[2021-07-05] MEDS: IPRATROPIUM/ALBUTEROL 20/100mcg/INH INHALER. INH SCH ×4 (09:02→21:38)
[2021-07-05 11:00] VITALS: BP 129/72
--- NOTE | 2021-07-05 11:05 | PDOC ---
[facility] PROGRESS NOTE Date of Service DOS: DATE: 07/05/21 TIME: 11:03 Chief Complaint Chief Complaint Acute respiratory failure with hypoxia COVID-19 pneumonia Bilateral adrenal nodules Plan: We will continue treatment with remdesivir and Decadron We will closely monitor LFTs Empiric antibiotics Supportive care, vitamin C. Resume home medications FEN - Cardiac diet PPX - Lovenox DNR Dispo - inpatient for above Surrogate decision maker is his (Jordan Farfan) History of Present Illness History of Present Illness Patient is a 71-year-old male with past medical history BPH, HLD, who presents to the ED with complaints of worsening shortness of breath over the past 3 days. He reports associated productive cough and lethargy. At home patient's was concerned due to worsening shortness of breath and noted confusion, so she brought him to the ED for further evaluation. On arrival he was hypoxic on room air, which improved to 95% with 15 L nonrebreather. Labs on admission showed CRP 68.5, AST 118, ALT 83, albumin 2.9, D-dimer 1.74. Chest x-ray showed extensive bilateral patchy airspace disease. CT head showed mild small vessel ischemic changes. CTA chest showed bilateral adrenal nodules, extensive bilateral patchy groundglass changes concerning for viral process, negative for PE. He received steroids and broad-spectrum IV antibiotics in ED. Will admit patient for further medical management. 06/24/2021: Afebrile, resting comfortably in bed, currently breathing on 15 L nasal cannula. Appreciate pulmonology recommendations and management of this patient. We will continue remdesivir to complete 5-day course (last day should be 06/26/2021). Continue steroids for 10-day course, with slow taper. Continue empiric antibiotics. 06/25/2021: Afebrile. Still breathing on 15 L nasal cannula. Last day remdesivir should be tomorrow. Continue empiric antibiotics. Continue steroids to complete a 10-day course with slow taper. 06/26/2021: Afebrile, requiring 15 L nonrebreather. Last dose of remdesivir yesterday. Continue empiric antibiotics and steroids to complete 10-day course (will begin slow Decadron taper 07/03) continue supportive care. 06/27/2021: Patient remains on 15 L nonrebreather. Afebrile. S/P remdesivir. Chest x-ray this morning showed worsening nearly diffuse bilateral pulmonary infiltrates, consistent with known COVID 19 pneumonia. Continue empiric antibiotics; will obtain procalcitonin. Continue steroids to complete 10-day course (with slow Decadron taper to begin 07/03). Continue supportive care. 06/28/2021: Afebrile. States he is not feeling well this morning, having difficulty catching his breath. Breathing on 15 L nonrebreather. Discussed with patient that if his oxygen saturation stayed in low 90s to upper 80s that he would likely benefit from BiPAP, and patient is agreeable. Continue steroids and empiric antibiotics. S/P remdesivir. 06/29/2021: Afebrile. Remains on 15 L nonrebreather. States he is breathing slightly better than yesterday. S/P remdesivir. Procalcitonin yesterday <0.10; will discontinue Rocephin and continue empiric treatment with p.o. azithromycin. Continue steroids to complete 10-day course (07/03). Continue supportive care. 06/30/2021 No acute events overnight. Patient seen examined bedside. Saturating low 90s on 15 L nonrebreather and nasal cannula. Consider transfer to the ICU. Patient's chart, labs, images were reviewed and discussed with RN patient's chart, labs, images were reviewed and discussed with RN again. 07/01/2021 No acute events overnight. Afebrile. Saturating 92% on 10 L nonrebreather. No dyspnea upon my exam. Patient seen and examined bedside. Patient's chart, labs, images were reviewed and discussed with RN 07/02/2021 No acute events overnight. Patient seen and examined bedside. Saturating 96% on 15 L nonrebreathing mask. Resting comfortably in bed without any dyspnea or more short of breath. Patient's chart, labs, images were reviewed and discussed with RN 07/03/2021 No acute events overnight. Patient seen and examined bedside. Still saturating 95% on 15 L nonrebreather mask. Completed 10-day course of steroids and Remdesivir. Continue with O2 support. Afebrile in last 24 hours. Will look for the possibilities for LTAC placement. Will discuss with pulmonology. Patient's chart, labs, images were reviewed and discussed with RN 07/04/2021 No acute events overnight. Patient seen and examined bedside. Patient saturating 94% on 15 L nasal cannula and as needed nonrebreather. Possible LTAC placement pending. Not more short of. No concerns nursing. Than usual. Patient's chart, labs, images were reviewed and discussed with RN 07/05/2021 No acute events overnight. Patient seen and visually examined bedside. Patient saturating 95% on 3 L nasal cannula. No dyspnea. No concerns nursing. Patient's chart, labs, images were reviewed and discussed with RN Vitals/I&O Vitals/I&O: Vital Signs Date Time Temp Pulse Resp B/P (MAP) Pulse Ox O2 Delivery O2 Flow Rate FiO2 07/05/21 07:00 96.5 58 16 146/71 (96) 95 Nasal Cannula 12.0 96.5 I & O 07/04/21 07/04/21 07/05/21 15:00 23:00 07:00 Intake Total 400 ml 120 ml 210 ml Output Total 150 ml 350 ml Balance 250 ml 120 ml -140 ml Physical Exam General: Alert, Oriented X3, Cooperative, mild distress Heart: Regular rate Lungs: Other (Increased work of breathing) Abdomen: Soft, No tenderness Extremities: No clubbing, No cyanosis Skin: No rashes, No breakdown Assessment and Plan Assessmemt and Plan Problems Medical Problems: (1) Acute respiratory failure due to COVID-19 Status: Acute (2) Adrenal nodule Status: Acute (3) COVID-19 Status: Acute Comment Review of Relevant I have reviewed the following items lisa (where applicable) has been applied. Justifications for Admission Other Justification SONIA RAMIREZ MD Jul 05, 2021 11:05
[2021-07-05 15:00] VITALS: BP 161/82
[2021-07-05 19:47] VITALS: BP 124/69
[2021-07-05] MEDS: ENOXAPARIN 40 MG/0.4 ML SYRINGE. SQ SCH (21:37)
[2021-07-05] MEDS: ATORVASTATIN CALCIUM 40 MG TABLET. PO SCH (21:37)
[2021-07-05] MEDS: TAMSULOSIN 0.4 MG CAP.ER.24H. PO SCH (21:37)
[2021-07-05 23:19] VITALS: BP 135/70
[2021-07-06 03:17] VITALS: BP 121/67
[2021-07-06 07:00] VITALS: BP 141/63
[2021-07-06] MEDS: LACTOBACILLUS RHAMNOSUS GG 1 CAPSULE. PO SCH ×2 (09:10→21:03)
[2021-07-06] MEDS: ZINC SULFATE 220 MG CAPSULE. PO SCH (09:10)
[2021-07-06] MEDS: ASCORBIC ACID 1,000 MG TABLET PO SCH ×3 (09:10→21:00)
[2021-07-06] MEDS: PANTOPRAZOLE 40 MG TABLET.DR. PO SCH (09:10)
[2021-07-06] MEDS: IPRATROPIUM/ALBUTEROL 20/100mcg/INH INHALER. INH SCH ×4 (09:11→21:23)
[2021-07-06] MEDS: THIAMINE 100 MG TABLET. PO SCH (09:11)
[2021-07-06 11:00] VITALS: BP 141/66
--- NOTE | 2021-07-06 11:40 | PDOC ---
[facility] PROGRESS NOTE Date of Service DOS: DATE: 07/06/21 TIME: 11:38 Chief Complaint Chief Complaint Acute respiratory failure with hypoxia COVID-19 pneumonia Bilateral adrenal nodules Plan: We will continue treatment with remdesivir and Decadron We will closely monitor LFTs Empiric antibiotics Supportive care, vitamin C. Resume home medications FEN - Cardiac diet PPX - Lovenox DNR Dispo - inpatient for above Surrogate decision maker is his (Jordan Farfan) History of Present Illness History of Present Illness Patient is a 71-year-old male with past medical history BPH, HLD, who presents to the ED with complaints of worsening shortness of breath over the past 3 days. He reports associated productive cough and lethargy. At home patient's was concerned due to worsening shortness of breath and noted confusion, so she brought him to the ED for further evaluation. On arrival he was hypoxic on room air, which improved to 95% with 15 L nonrebreather. Labs on admission showed CRP 68.5, AST 118, ALT 83, albumin 2.9, D-dimer 1.74. Chest x-ray showed extensive bilateral patchy airspace disease. CT head showed mild small vessel ischemic changes. CTA chest showed bilateral adrenal nodules, extensive bilateral patchy groundglass changes concerning for viral process, negative for PE. He received steroids and broad-spectrum IV antibiotics in ED. Will admit patient for further medical management. 06/24/2021: Afebrile, resting comfortably in bed, currently breathing on 15 L nasal cannula. Appreciate pulmonology recommendations and management of this patient. We will continue remdesivir to complete 5-day course (last day should be 06/26/2021). Continue steroids for 10-day course, with slow taper. Continue empiric antibiotics. 06/25/2021: Afebrile. Still breathing on 15 L nasal cannula. Last day remdesivir should be tomorrow. Continue empiric antibiotics. Continue steroids to complete a 10-day course with slow taper. 06/26/2021: Afebrile, requiring 15 L nonrebreather. Last dose of remdesivir yesterday. Continue empiric antibiotics and steroids to complete 10-day course (will begin slow Decadron taper 07/03) continue supportive care. 06/27/2021: Patient remains on 15 L nonrebreather. Afebrile. S/P remdesivir. Chest x-ray this morning showed worsening nearly diffuse bilateral pulmonary infiltrates, consistent with known COVID 19 pneumonia. Continue empiric antibiotics; will obtain procalcitonin. Continue steroids to complete 10-day course (with slow Decadron taper to begin 07/03). Continue supportive care. 06/28/2021: Afebrile. States he is not feeling well this morning, having difficulty catching his breath. Breathing on 15 L nonrebreather. Discussed with patient that if his oxygen saturation stayed in low 90s to upper 80s that he would likely benefit from BiPAP, and patient is agreeable. Continue steroids and empiric antibiotics. S/P remdesivir. 06/29/2021: Afebrile. Remains on 15 L nonrebreather. States he is breathing slightly better than yesterday. S/P remdesivir. Procalcitonin yesterday <0.10; will discontinue Rocephin and continue empiric treatment with p.o. azithromycin. Continue steroids to complete 10-day course (07/03). Continue supportive care. 06/30/2021 No acute events overnight. Patient seen examined bedside. Saturating low 90s on 15 L nonrebreather and nasal cannula. Consider transfer to the ICU. Patient's chart, labs, images were reviewed and discussed with RN patient's chart, labs, images were reviewed and discussed with RN again. 07/01/2021 No acute events overnight. Afebrile. Saturating 92% on 10 L nonrebreather. No dyspnea upon my exam. Patient seen and examined bedside. Patient's chart, labs, images were reviewed and discussed with RN 07/02/2021 No acute events overnight. Patient seen and examined bedside. Saturating 96% on 15 L nonrebreathing mask. Resting comfortably in bed without any dyspnea or more short of breath. Patient's chart, labs, images were reviewed and discussed with RN 07/03/2021 No acute events overnight. Patient seen and examined bedside. Still saturating 95% on 15 L nonrebreather mask. Completed 10-day course of steroids and Remdesivir. Continue with O2 support. Afebrile in last 24 hours. Will look for the possibilities for LTAC placement. Will discuss with pulmonology. Patient's chart, labs, images were reviewed and discussed with RN 07/04/2021 No acute events overnight. Patient seen and examined bedside. Patient saturating 94% on 15 L nasal cannula and as needed nonrebreather. Possible LTAC placement pending. Not more short of. No concerns nursing. Than usual. Patient's chart, labs, images were reviewed and discussed with RN 07/05/2021 No acute events overnight. Patient seen and visually examined bedside. Patient saturating 95% on 3 L nasal cannula. No dyspnea. No concerns nursing. Patient's chart, labs, images were reviewed and discussed with RN 07/06/2021 No acute events overnight. Patient saturating 97% on 10 L nasal cannula improving oxygenation and may be able to discharge within the next 24 to 48 hours if continues to improve. Patient's chart, labs, images were reviewed and discussed with RN Vitals/I&O Vitals/I&O: Vital Signs Date Time Temp Pulse Resp B/P (MAP) Pulse Ox O2 Delivery O2 Flow Rate FiO2 07/06/21 07:00 97.9 60 18 141/63 (89) 98 Nasal Cannula 9.0 97.9 I & O 07/05/21 07/05/21 07/06/21 15:00 23:00 07:00 Intake Total 360 ml Output Total 200 ml 400 ml Balance -200 ml -400 ml 360 ml Physical Exam General: Alert, Oriented X3, Cooperative, mild distress Heart: Regular rate Lungs: Other (Increased work of breathing) Abdomen: Soft, No tenderness Extremities: No clubbing, No cyanosis Skin: No rashes, No breakdown Assessment and Plan Assessmemt and Plan Problems Medical Problems: (1) Acute respiratory failure due to COVID-19 Status: Acute (2) Adrenal nodule Status: Acute (3) COVID-19 Status: Acute Comment Review of Relevant I have reviewed the following items lisa (where applicable) has been applied. Justifications for Admission Other Justification SONIA RAMIREZ MD Jul 06, 2021 11:40
[2021-07-06 15:00] VITALS: BP 123/63
[2021-07-06 20:18] VITALS: BP 137/71
[2021-07-06] MEDS: ATORVASTATIN CALCIUM 40 MG TABLET. PO SCH (21:03)
[2021-07-06] MEDS: LORazepam 0.5 MG TABLET PO PRN (21:03)
[2021-07-06] MEDS: ENOXAPARIN 40 MG/0.4 ML SYRINGE. SQ SCH (21:03)
[2021-07-06] MEDS: TAMSULOSIN 0.4 MG CAP.ER.24H. PO SCH (21:03)
[2021-07-06 23:50] VITALS: BP 106/56
[2021-07-07 04:30] VITALS: BP 113/64
[2021-07-07 07:00] VITALS: BP 124/61
--- NOTE | 2021-07-07 07:16 | PDOC ---
[facility] PROGRESS NOTE Date of Service DOS: DATE: 07/07/21 TIME: 07:16 Chief Complaint Chief Complaint Acute respiratory failure with hypoxia COVID-19 pneumonia Bilateral adrenal nodules Transaminitis Severe protein calorie malnutrition BPH HLD Plan: We will continue treatment with remdesivir and Decadron We will closely monitor LFTs Empiric antibiotics Supportive care, vitamin C. Resume home medications FEN - Cardiac diet PPX - Lovenox DNR Dispo - inpatient for above Surrogate decision maker is his (Jordan Farfan) 37 MIN PT exam, chart review, > 50% of time spent with exam, chart review, pt care coordination. History of Present Illness History of Present Illness Patient is a 71-year-old male with past medical history BPH, HLD, who presents to the ED with complaints of worsening shortness of breath over the past 3 days. He reports associated productive cough and lethargy. At home patient's was concerned due to worsening shortness of breath and noted confusion, so she brought him to the ED for further evaluation. On arrival he was hypoxic on room air, which improved to 95% with 15 L nonrebreather. Labs on admission showed CRP 68.5, AST 118, ALT 83, albumin 2.9, D-dimer 1.74. Chest x-ray showed extensive bilateral patchy airspace disease. CT head showed mild small vessel ischemic changes. CTA chest showed bilateral adrenal nodules, extensive bilateral patchy groundglass changes concerning for viral process, negative for PE. He received steroids and broad-spectrum IV antibiotics in ED. Will admit patient for further medical management. 06/24/2021: Afebrile, resting comfortably in bed, currently breathing on 15 L nasal cannula. Appreciate pulmonology recommendations and management of this patient. We will continue remdesivir to complete 5-day course (last day should be 06/26/2021). Continue steroids for 10-day course, with slow taper. Continue empiric antibiotics. 06/25/2021: Afebrile. Still breathing on 15 L nasal cannula. Last day remdesivir should be tomorrow. Continue empiric antibiotics. Continue steroids to complete a 10-day course with slow taper. 06/26/2021: Afebrile, requiring 15 L nonrebreather. Last dose of remdesivir yesterday. Continue empiric antibiotics and steroids to complete 10-day course (will begin slow Decadron taper 10/7) continue supportive care. 06/27/2021: Patient remains on 15 L nonrebreather. Afebrile. S/P remdesivir. Chest x-ray this morning showed worsening nearly diffuse bilateral pulmonary infiltrates, consistent with known COVID 19 pneumonia. Continue empiric antibiotics; will obtain procalcitonin. Continue steroids to complete 10-day course (with slow Decadron taper to begin 07/03). Continue supportive care. 06/28/2021: Afebrile. States he is not feeling well this morning, having difficulty catching his breath. Breathing on 15 L nonrebreather. Discussed with patient that if his oxygen saturation stayed in low 90s to upper 80s that he would likely benefit from BiPAP, and patient is agreeable. Continue steroids and empiric antibiotics. S/P remdesivir. 06/29/2021: Afebrile. Remains on 15 L nonrebreather. States he is breathing slightly better than yesterday. S/P remdesivir. Procalcitonin yesterday <0.10; will discontinue Rocephin and continue empiric treatment with p.o. azithromycin. Continue steroids to complete 10-day course (07/03). Continue supportive care. 06/30/2021 No acute events overnight. Patient seen examined bedside. Saturating low 90s on 15 L nonrebreather and nasal cannula. Consider transfer to the ICU. Patient's chart, labs, images were reviewed and discussed with RN patient's chart, labs, images were reviewed and discussed with RN again. 07/01/2021 No acute events overnight. Afebrile. Saturating 92% on 10 L nonrebreather. No dyspnea upon my exam. Patient seen and examined bedside. Patient's chart, labs, images were reviewed and discussed with RN 07/02/2021 No acute events overnight. Patient seen and examined bedside. Saturating 96% on 15 L nonrebreathing mask. Resting comfortably in bed without any dyspnea or more short of breath. Patient's chart, labs, images were reviewed and discussed with RN 07/03/2021 No acute events overnight. Patient seen and examined bedside. Still saturating 95% on 15 L nonrebreather mask. Completed 10-day course of steroids and Remdesivir. Continue with O2 support. Afebrile in last 24 hours. Will look for the possibilities for LTAC placement. Will discuss with pulmonology. Patient's chart, labs, images were reviewed and discussed with RN 07/04/2021 No acute events overnight. Patient seen and examined bedside. Patient saturating 94% on 15 L nasal cannula and as needed nonrebreather. Possible LTAC placement pending. Not more short of. No concerns nursing. Than usual. Patient's chart, labs, images were reviewed and discussed with RN 07/05/2021 No acute events overnight. Patient seen and visually examined bedside. Patient saturating 95% on 3 L nasal cannula. No dyspnea. No concerns nursing. Patient's chart, labs, images were reviewed and discussed with RN 07/06/2021 No acute events overnight. Patient saturating 97% on 10 L nasal cannula improving oxygenation and may be able to discharge within the next 24 to 48 hours if continues to improve. Patient's chart, labs, images were reviewed and discussed with RN No overnight events. Afebrile. He is feeling profoundly weak and asking if he need assistance to get up out of bed. O2 saturations 93% on 8 L/min nasal can nula O2. Vitals/I&O Vitals/I&O: Vital Signs Date Time Temp Pulse Resp B/P (MAP) Pulse Ox O2 Delivery O2 Flow Rate FiO2 07/07/21 04:30 97.6 64 20 113/64 (80) 97 Nasal Cannula 6.0 97.6 I & O 07/06/21 07/06/21 07/07/21 15:00 23:00 07:00 Intake Total 60 ml Output Total 300 ml 300 ml Balance -300 ml -240 ml Physical Exam General: Alert, Oriented X3, Cooperative, mild distress Heart: Regular rate Lungs: Other (Increased work of breathing) Abdomen: Soft, No tenderness Extremities: No clubbing, No cyanosis Skin: No rashes, No breakdown Assessment and Plan Assessmemt and Plan Problems Medical Problems: (1) Acute respiratory failure due to COVID-19 Status: Acute (2) Adrenal nodule Status: Acute (3) COVID-19 Status: Acute Comment Review of Relevant I have reviewed the following items lisa (where applicable) has been applied. Justifications for Admission Other Justification RACHAEL LAGUNA MD Jul 07, 2021 07:16
[2021-07-07] MEDS: IPRATROPIUM/ALBUTEROL 20/100mcg/INH INHALER. INH SCH ×4 (09:09→20:00)
[2021-07-07] MEDS: LACTOBACILLUS RHAMNOSUS GG 1 CAPSULE. PO SCH ×2 (09:10→22:49)
[2021-07-07] MEDS: ZINC SULFATE 220 MG CAPSULE. PO SCH (09:10)
[2021-07-07] MEDS: PANTOPRAZOLE 40 MG TABLET.DR. PO SCH (09:10)
[2021-07-07] MEDS: THIAMINE 100 MG TABLET. PO SCH (09:10)
[2021-07-07] MEDS: ASCORBIC ACID 1,000 MG TABLET PO SCH ×3 (09:10→21:00)
--- NOTE | 2021-07-07 10:48 | NUR ---
SW following. Discussed with RN, pt from home, 6L, COVID-19 positive. PT/OT being ordered today. RN advised no SW needs at this time, awaiting therapy eval. SW will continue to follow.
[2021-07-07 11:00] VITALS: BP 116/65
--- NOTE | 2021-07-07 11:08 | PDOC ---
PULMONARY PROGRESS NOTES DATE: 07/07/21 TIME: 11:08 Subjective Off of high flow oxygen currently on 5 L Vitals Vital Signs Date Time Temp Pulse Resp B/P (MAP) Pulse Ox O2 Delivery O2 Flow Rate FiO2 07/07/21 07:00 97.9 58 20 124/61 (82) 96 Nasal Cannula 6.0 97.9 Comments Visual exam done due to COVID-19 pneumonia. No obvious respiratory distress. No obvious skin rash no leg edema General: No acute distress Lungs: Other (Increased work of breathing) Medications Active Scripts Medications Dose Route/Sig Max Daily Dose Days Date Category Tadalafil 5 Mg Tablet 5 Mg PO DAILY 06/23/21 Reported Flomax (Tamsulosin Hcl) 0.4 Mg Cap.er.24h 0.4 Mg PO HS 06/23/21 Reported Atorvastatin Calcium 40 Mg Tablet 40 Mg PO HS 06/23/21 Reported Comments CTA chest reviewed COVID pneumonia Impression . 1. Acute hypoxemic respiratory failure, acute, secondary to COVID-19 viral pneumonia./ARDS 2. COVID-19 viral pneumonia. Status post remdesivir 3. Abnormal x-ray. 4. CTA revealed no evidence of pulmonary emboli. 5. non smoker 6. Abnormal liver function test with mildly increased bilirubin. Plan . Updated 07/[address] Husain, close to being discharged home, if 6-minute walk, continue current support updated 07/04 Continue current support DVT prophylaxis Oxygen supplementation FOREIGN BYRD MD Jul 07, 2021 11:08
[2021-07-07 15:00] VITALS: BP 124/77
[2021-07-07 19:00] VITALS: BP 144/70
[2021-07-07] MEDS: ATORVASTATIN CALCIUM 40 MG TABLET. PO SCH (22:49)
[2021-07-07] MEDS: TAMSULOSIN 0.4 MG CAP.ER.24H. PO SCH (22:49)
[2021-07-07] MEDS: ENOXAPARIN 40 MG/0.4 ML SYRINGE. SQ SCH (22:50)
[2021-07-07 23:00] VITALS: BP 132/61
[2021-07-08 03:00] VITALS: BP 122/59
[2021-07-08 07:00] VITALS: BP 121/66
[2021-07-08 08:21] LABS: BASO # 0.1 x10^3/uL (0.0-0.2); BASO % 1 % (0-3); EOS # 0.2 x10^3/uL (0.0-0.7); EOS % 3 % (0-3); HEMATOCRIT 39.9 % (39.0-53.0); HEMOGLOBIN 13.8 g/dL (13.0-17.5); LYMPH # 1.2 x10^3/uL (1.0-4.8); LYMPH % 17 % (24-48); MEAN CORPUSCULAR HEMOGLOBIN 32 pg (25-35); MEAN CORPUSCULAR HGB CONC 35 g/dL (31-37); MEAN CORPUSCULAR VOLUME 92 fL (79-100); MONO # 0.7 x10^3/uL (0.0-1.1); MONO % 10 % (0-9); NEUT # 4.9 x10^3/uL (1.8-7.7); NEUT % 69 % (31-73); PLATELET COUNT 178 x10^3/uL (140-400); RED BLOOD COUNT 4.32 x10^6/uL (4.30-5.70); RED CELL DISTRIBUTION WIDTH 13.6 % (11.5-14.5); WHITE BLOOD COUNT 7.1 x10^3/uL (4.0-11.0)
--- NOTE | 2021-07-08 08:33 | PDOC ---
[facility] PROGRESS NOTE Date of Service DOS: DATE: 07/08/21 TIME: 08:33 Chief Complaint Chief Complaint Acute respiratory failure with hypoxia COVID-19 pneumonia Bilateral adrenal nodules Transaminitis Severe protein calorie malnutrition BPH HLD Plan: We will continue treatment with remdesivir and Decadron We will closely monitor LFTs Empiric antibiotics Supportive care, vitamin C. Resume home medications FEN - Cardiac diet PPX - Lovenox DNR Dispo - inpatient for above Surrogate decision maker is his (Jordan Farfan) 37 MIN PT exam, chart review, > 50% of time spent with exam, chart review, pt care coordination. History of Present Illness History of Present Illness Patient is a 71-year-old male with past medical history BPH, HLD, who presents to the ED with complaints of worsening shortness of breath over the past 3 days. He reports associated productive cough and lethargy. At home patient's was concerned due to worsening shortness of breath and noted confusion, so she brought him to the ED for further evaluation. On arrival he was hypoxic on room air, which improved to 95% with 15 L nonrebreather. Labs on admission showed CRP 68.5, AST 118, ALT 83, albumin 2.9, D-dimer 1.74. Chest x-ray showed extensive bilateral patchy airspace disease. CT head showed mild small vessel ischemic changes. CTA chest showed bilateral adrenal nodules, extensive bilateral patchy groundglass changes concerning for viral process, negative for PE. He received steroids and broad-spectrum IV antibiotics in ED. Will admit patient for further medical management. 06/24/2021: Afebrile, resting comfortably in bed, currently breathing on 15 L nasal cannula. Appreciate pulmonology recommendations and management of this patient. We will continue remdesivir to complete 5-day course (last day should be 06/26/2021). Continue steroids for 10-day course, with slow taper. Continue empiric antibiotics. 06/25/2021: Afebrile. Still breathing on 15 L nasal cannula. Last day remdesivir should be tomorrow. Continue empiric antibiotics. Continue steroids to complete a 10-day course with slow taper. 06/26/2021: Afebrile, requiring 15 L nonrebreather. Last dose of remdesivir yesterday. Continue empiric antibiotics and steroids to complete 10-day course (will begin slow Decadron taper 10/7) continue supportive care. 06/27/2021: Patient remains on 15 L nonrebreather. Afebrile. S/P remdesivir. Chest x-ray this morning showed worsening nearly diffuse bilateral pulmonary infiltrates, consistent with known COVID 19 pneumonia. Continue empiric antibiotics; will obtain procalcitonin. Continue steroids to complete 10-day course (with slow Decadron taper to begin 07/03). Continue supportive care. 06/28/2021: Afebrile. States he is not feeling well this morning, having difficulty catching his breath. Breathing on 15 L nonrebreather. Discussed with patient that if his oxygen saturation stayed in low 90s to upper 80s that he would likely benefit from BiPAP, and patient is agreeable. Continue steroids and empiric antibiotics. S/P remdesivir. 06/29/2021: Afebrile. Remains on 15 L nonrebreather. States he is breathing slightly better than yesterday. S/P remdesivir. Procalcitonin yesterday <0.10; will discontinue Rocephin and continue empiric treatment with p.o. azithromycin. Continue steroids to complete 10-day course (07/03). Continue supportive care. 06/30/2021 No acute events overnight. Patient seen examined bedside. Saturating low 90s on 15 L nonrebreather and nasal cannula. Consider transfer to the ICU. Patient's chart, labs, images were reviewed and discussed with RN patient's chart, labs, images were reviewed and discussed with RN again. 07/01/2021 No acute events overnight. Afebrile. Saturating 92% on 10 L nonrebreather. No dyspnea upon my exam. Patient seen and examined bedside. Patient's chart, labs, images were reviewed and discussed with RN 07/02/2021 No acute events overnight. Patient seen and examined bedside. Saturating 96% on 15 L nonrebreathing mask. Resting comfortably in bed without any dyspnea or more short of breath. Patient's chart, labs, images were reviewed and discussed with RN 07/03/2021 No acute events overnight. Patient seen and examined bedside. Still saturating 95% on 15 L nonrebreather mask. Completed 10-day course of steroids and Remdesivir. Continue with O2 support. Afebrile in last 24 hours. Will look for the possibilities for LTAC placement. Will discuss with pulmonology. Patient's chart, labs, images were reviewed and discussed with RN 07/04/2021 No acute events overnight. Patient seen and examined bedside. Patient saturating 94% on 15 L nasal cannula and as needed nonrebreather. Possible LTAC placement pending. Not more short of. No concerns nursing. Than usual. Patient's chart, labs, images were reviewed and discussed with RN 07/05/2021 No acute events overnight. Patient seen and visually examined bedside. Patient saturating 95% on 3 L nasal cannula. No dyspnea. No concerns nursing. Patient's chart, labs, images were reviewed and discussed with RN 07/06/2021 No acute events overnight. Patient saturating 97% on 10 L nasal cannula improving oxygenation and may be able to discharge within the next 24 to 48 hours if continues to improve. Patient's chart, labs, images were reviewed and discussed with RN 07/07: No overnight events. Afebrile. He is feeling profoundly weak and asking if he need assistance to get up out of bed. O2 saturations 93% on 8 L/min nasal cannula O2. No overnight events. Afebrile. O2 saturations 90% on 6 L/min nasal cannula O2. Still feeling very weak as compared to preoperatively. Labs reviewed LFTs normalized WBC normalized. Vitals/I&O Vitals/I&O: Vital Signs Date Time Temp Pulse Resp B/P (MAP) Pulse Ox O2 Delivery O2 Flow Rate FiO2 07/08/21 07:00 97.2 60 20 121/66 (84) 96 Nasal Cannula 6.0 97.2 I & O 07/07/21 07/07/21 07/08/21 15:00 23:00 07:00 Intake Total 400 ml Output Total 350 ml 250 ml Balance 400 ml -350 ml -250 ml Physical Exam General: Alert, Oriented X3, Cooperative, mild distress Heart: Regular rate Lungs: Other (Increased work of breathing) Abdomen: Soft, No tenderness Extremities: No clubbing, No cyanosis Skin: No rashes, No breakdown Assessment and Plan Assessmemt and Plan Problems Medical Problems: (1) Acute respiratory failure due to COVID-19 Status: Acute (2) Adrenal nodule Status: Acute (3) COVID-19 Status: Acute Comment Review of Relevant I have reviewed the following items lisa (where applicable) has been applied. Justifications for Admission Other Justification RACHAEL LAGUNA MD Jul 08, 2021 08:33
--- NOTE | 2021-07-08 08:48 | PDOC ---
PULMONARY PROGRESS NOTES DATE: 07/08/21 TIME: 08:48 Subjective Patient with no new complaint off of high flow oxygen currently on 5 L Vitals Vital Signs Date Time Temp Pulse Resp B/P (MAP) Pulse Ox O2 Delivery O2 Flow Rate FiO2 07/08/21 07:00 97.2 60 20 121/66 (84) 96 Nasal Cannula 6.0 97.2 Comments Visual exam done due to COVID-19 pneumonia. No obvious respiratory distress. No obvious skin rash no leg edema General: No acute distress Lungs: Other (Increased work of breathing) Labs Laboratory Tests Test 07/08/21 07:45 White Blood Count 7.1 x10^3/uL (4.0-11.0) Red Blood Count 4.32 x10^6/uL (4.30-5.70) Hemoglobin 13.8 g/dL (13.0-17.5) Hematocrit 39.9 % (39.0-53.0) Mean Corpuscular Volume 92 fL (79-100) Mean Corpuscular Hemoglobin 32 pg (25-35) Mean Corpuscular Hemoglobin Concent 35 g/dL (31-37) Red Cell Distribution Width 13.6 % (11.5-14.5) Platelet Count 178 x10^3/uL (140-400) Neutrophils (%) (Auto) 69 % (31-73) Lymphocytes (%) (Auto) 17 % (24-48) Monocytes (%) (Auto) 10 % (0-9) Eosinophils (%) (Auto) 3 % (0-3) Basophils (%) (Auto) 1 % (0-3) Neutrophils # (Auto) 4.9 x10^3/uL (1.8-7.7) Lymphocytes # (Auto) 1.2 x10^3/uL (1.0-4.8) Monocytes # (Auto) 0.7 x10^3/uL (0.0-1.1) Eosinophils # (Auto) 0.2 x10^3/uL (0.0-0.7) Basophils # (Auto) 0.1 x10^3/uL (0.0-0.2) Laboratory Tests Test 07/08/21 07:45 White Blood Count 7.1 x10^3/uL (4.0-11.0) Red Blood Count 4.32 x10^6/uL (4.30-5.70) Hemoglobin 13.8 g/dL (13.0-17.5) Hematocrit 39.9 % (39.0-53.0) Mean Corpuscular Volume 92 fL (79-100) Mean Corpuscular Hemoglobin 32 pg (25-35) Mean Corpuscular Hemoglobin Concent 35 g/dL (31-37) Red Cell Distribution Width 13.6 % (11.5-14.5) Platelet Count 178 x10^3/uL (140-400) Neutrophils (%) (Auto) 69 % (31-73) Lymphocytes (%) (Auto) 17 % (24-48) Monocytes (%) (Auto) 10 % (0-9) Eosinophils (%) (Auto) 3 % (0-3) Basophils (%) (Auto) 1 % (0-3) Neutrophils # (Auto) 4.9 x10^3/uL (1.8-7.7) Lymphocytes # (Auto) 1.2 x10^3/uL (1.0-4.8) Monocytes # (Auto) 0.7 x10^3/uL (0.0-1.1) Eosinophils # (Auto) 0.2 x10^3/uL (0.0-0.7) Basophils # (Auto) 0.1 x10^3/uL (0.0-0.2) Medications Active Scripts Medications Dose Route/Sig Max Daily Dose Days Date Category Tadalafil 5 Mg Tablet 5 Mg PO DAILY 06/23/21 Reported Flomax (Tamsulosin Hcl) 0.4 Mg Cap.er.24h 0.4 Mg PO HS 06/23/21 Reported Atorvastatin Calcium 40 Mg Tablet 40 Mg PO HS 06/23/21 Reported Comments CTA chest reviewed COVID pneumonia Impression . 1. Acute hypoxemic respiratory failure, acute, secondary to COVID-19 viral pneumonia./ARDS 2. COVID-19 viral pneumonia. Status post remdesivir 3. Abnormal x-ray. 4. CTA revealed no evidence of pulmonary emboli. 5. non smoker 6. Abnormal liver function test with mildly increased bilirubin. Plan . Updated 07/[address] Husain Possible discharge 6-minute walk Patient to follow-up with me in August updated 07/[address] Husain, close to being discharged home, if 6-minute walk, continue current support updated 07/04 Continue current support DVT prophylaxis Oxygen supplementation FOREIGN BYRD MD Jul 08, 2021 08:48
[2021-07-08] MEDS: IPRATROPIUM/ALBUTEROL 20/100mcg/INH INHALER. INH SCH ×4 (09:37→22:01)
[2021-07-08] MEDS: ZINC SULFATE 220 MG CAPSULE. PO SCH (09:38)
[2021-07-08] MEDS: ASCORBIC ACID 1,000 MG TABLET PO SCH ×3 (09:38→22:01)
[2021-07-08] MEDS: LACTOBACILLUS RHAMNOSUS GG 1 CAPSULE. PO SCH ×2 (09:38→22:01)
[2021-07-08] MEDS: THIAMINE 100 MG TABLET. PO SCH (09:38)
[2021-07-08] MEDS: PANTOPRAZOLE 40 MG TABLET.DR. PO SCH (09:38)
[2021-07-08 09:51] LABS: ALBUMIN/GLOBULIN RATIO 0.5 (1.0-1.7); CALCIUM 8.1 mg/dL (8.5-10.1); CREATININE 0.7 mg/dL (0.7-1.3); GFR 110.5; POTASSIUM 4.3 mmol/L (3.5-5.1); TOTAL BILIRUBIN 0.9 mg/dL (0.2-1.0); TOTAL PROTEIN 6.3 g/dL (6.4-8.2)
[2021-07-08 11:00] VITALS: BP 137/63
[2021-07-08 15:00] VITALS: BP 110/66
[2021-07-08 19:00] VITALS: BP 135/76
[2021-07-08] MEDS: ENOXAPARIN 40 MG/0.4 ML SYRINGE. SQ SCH (22:01)
[2021-07-08] MEDS: TAMSULOSIN 0.4 MG CAP.ER.24H. PO SCH (22:01)
[2021-07-08] MEDS: ATORVASTATIN CALCIUM 40 MG TABLET. PO SCH (22:02)
[2021-07-08 23:03] VITALS: BP 132/64
[2021-07-09 03:05] VITALS: BP 127/62
--- NOTE | 2021-07-09 06:47 | PDOC ---
[facility] [facility] PROGRESS NOTE Date of Service DOS: DATE: 07/09/21 TIME: 06:47 Chief Complaint Chief Complaint Acute respiratory failure with hypoxia COVID-19 pneumonia Bilateral adrenal nodules Transaminitis Severe protein calorie malnutrition BPH HLD Plan: We will continue treatment with remdesivir and Decadron We will closely monitor LFTs Empiric antibiotics Supportive care, vitamin C. Resume home medications FEN - Cardiac diet PPX - Lovenox DNR Dispo - inpatient for above Surrogate decision maker is his (Jordan Farfan) 37 MIN PT exam, chart review, > 50% of time spent with exam, chart review, pt care coordination. History of Present Illness History of Present Illness Patient is a 71-year-old male with past medical history BPH, HLD, who presents to the ED with complaints of worsening shortness of breath over the past 3 days. He reports associated productive cough and lethargy. At home patient's was concerned due to worsening shortness of breath and noted confusion, so she brought him to the ED for further evaluation. On arrival he was hypoxic on room air, which improved to 95% with 15 L nonrebreather. Labs on admission showed CRP 68.5, AST 118, ALT 83, albumin 2.9, D-dimer 1.74. Chest x-ray showed extensive bilateral patchy airspace disease. CT head showed mild small vessel ischemic changes. CTA chest showed bilateral adrenal nodules, extensive bilateral patchy groundglass changes concerning for viral process, negative for PE. He received steroids and broad-spectrum IV antibiotics in ED. Will admit patient for further medical management. 06/24/2021: Afebrile, resting comfortably in bed, currently breathing on 15 L nasal cannula. Appreciate pulmonology recommendations and management of this patient. We will continue remdesivir to complete 5-day course (last day should be 06/26/2021). Continue steroids for 10-day course, with slow taper. Continue empiric antibiotics. 06/25/2021: Afebrile. Still breathing on 15 L nasal cannula. Last day remdesivir should be tomorrow. Continue empiric antibiotics. Continue steroids to complete a 10-day course with slow taper. 06/26/2021: Afebrile, requiring 15 L nonrebreather. Last dose of remdesivir yesterday. Continue empiric antibiotics and steroids to complete 10-day course (will begin slow Decadron taper 10/7) continue supportive care. 06/27/2021: Patient remains on 15 L nonrebreather. Afebrile. S/P remdesivir. Chest x-ray this morning showed worsening nearly diffuse bilateral pulmonary infiltrates, consistent with known COVID 19 pneumonia. Continue empiric antibiotics; will obtain procalcitonin. Continue steroids to complete 10-day course (with slow Decadron taper to begin 07/03). Continue supportive care. 06/28/2021: Afebrile. States he is not feeling well this morning, having difficulty catching his breath. Breathing on 15 L nonrebreather. Discussed with patient that if his oxygen saturation stayed in low 90s to upper 80s that he would likely benefit from BiPAP, and patient is agreeable. Continue steroids and empiric antibiotics. S/P remdesivir. 06/29/2021: Afebrile. Remains on 15 L nonrebreather. States he is breathing slightly better than yesterday. S/P remdesivir. Procalcitonin yesterday <0.10; will discontinue Rocephin and continue empiric treatment with p.o. azithromycin. Continue steroids to complete 10-day course (07/03). Continue supportive care. 06/30: No acute events overnight. Patient seen examined bedside. Saturating low 90s on 15 L nonrebreather and nasal cannula. Consider transfer to the ICU. 07/01:No acute events overnight. Afebrile. Saturating 92% on 10 L nonrebreather. No dyspnea upon my exam. Patient seen and examined bedside. Patient's chart, labs, images were reviewed and discussed with RN 07/02: No acute events overnight. Patient seen and examined bedside. Saturating 96% on 15 L nonrebreathing mask. Resting comfortably in bed without any dyspnea or more short of breath. Patient's chart, labs, images were reviewed and discussed with RN 07/03: No acute events overnight. Patient seen and examined bedside. Still saturating 95% on 15 L nonrebreather mask. Completed 10-day course of steroids and Remdesivir. Continue with O2 support. Afebrile in last 24 hours. Will discuss with pulmonology. 07/04: No acute events overnight. Patient seen and examined bedside. Patient saturating 94% on 15 L nasal cannula and as needed nonrebreather. Possible LTAC placement pending. Not more short of. No concerns nursing. 07/05: No acute events overnight. Patient seen and visually examined bedside. Patient saturating 95% on 3 L nasal cannula. No dyspnea. No concerns nursing. Patient's chart, labs, images were reviewed and discussed with RN 07/06: No acute events overnight. Patient saturating 97% on 10 L nasal cannula improving oxygenation and may be able to discharge within the next 24 to 48 hours if continues to improve. Patient's chart, labs, images were reviewed and discussed with RN 07/07: No overnight events. Afebrile. He is feeling profoundly weak and asking if he need assistance to get up out of bed. O2 saturations 93% on 8 L/min nasal cannula O2. 07/08: No overnight events. Afebrile. O2 saturations 90% on 6 L/min nasal cannula O2. Still feeling very weak as compared to preoperatively. Labs reviewed LFTs normalized WBC normalized. No overnight events. Afebrile. O2 saturations 92% on 2 L/min. Awaiting 6- minute walk currently. Able to ambulate with 2 wheeled walker with therapy recommends home with home health. Plan for discharge home today have discussed with pulmonology. Vitals/I&O Vitals/I&O: Vital Signs Date Time Temp Pulse Resp B/P (MAP) Pulse Ox O2 Delivery O2 Flow Rate FiO2 07/09/21 03:05 97.6 64 19 127/62 (83) 94 Nasal Cannula 97.6 07/08/21 20:00 3.0 I & O 07/08/21 07/08/21 07/09/21 15:00 23:00 07:00 Intake Total 480 ml 240 ml Output Total 0 ml Balance 480 ml 240 ml 0 ml Physical Exam General: Alert, Oriented X3, Cooperative, mild distress Heart: Regular rate Lungs: Other (Increased work of breathing) Abdomen: Soft, No tenderness Extremities: No clubbing, No cyanosis Skin: No rashes, No breakdown Labs Labs: Laboratory Tests Test 07/08/21 07:45 White Blood Count 7.1 x10^3/uL (4.0-11.0) Red Blood Count 4.32 x10^6/uL (4.30-5.70) Hemoglobin 13.8 g/dL (13.0-17.5) Hematocrit 39.9 % (39.0-53.0) Mean Corpuscular Volume 92 fL (79-100) Mean Corpuscular Hemoglobin 32 pg (25-35) Mean Corpuscular Hemoglobin Concent 35 g/dL (31-37) Red Cell Distribution Width 13.6 % (11.5-14.5) Platelet Count 178 x10^3/uL (140-400) Neutrophils (%) (Auto) 69 % (31-73) Lymphocytes (%) (Auto) 17 % (24-48) Monocytes (%) (Auto) 10 % (0-9) Eosinophils (%) (Auto) 3 % (0-3) Basophils (%) (Auto) 1 % (0-3) Neutrophils # (Auto) 4.9 x10^3/uL (1.8-7.7) Lymphocytes # (Auto) 1.2 x10^3/uL (1.0-4.8) Monocytes # (Auto) 0.7 x10^3/uL (0.0-1.1) Eosinophils # (Auto) 0.2 x10^3/uL (0.0-0.7) Basophils # (Auto) 0.1 x10^3/uL (0.0-0.2) Sodium Level 140 mmol/L (136-145) Potassium Level 4.3 mmol/L (3.5-5.1) Chloride Level 105 mmol/L (98-107) Carbon Dioxide Level 30 mmol/L (21-32) Anion Gap 5 (6-14) Blood Urea Nitrogen 12 mg/dL (8-26) Creatinine 0.7 mg/dL (0.7-1.3) Estimated GFR (Cockcroft-Gault) 110.5 BUN/Creatinine Ratio 17 (6-20) Glucose Level 98 mg/dL (70-99) Calcium Level 8.1 mg/dL (8.5-10.1) Total Bilirubin 0.9 mg/dL (0.2-1.0) Aspartate Amino Transf (AST/SGOT) 19 U/L (15-37) Alanine Aminotransferase (ALT/SGPT) 55 U/L (16-63) Alkaline Phosphatase 69 U/L (46-116) Total Protein 6.3 g/dL (6.4-8.2) Albumin 2.0 g/dL (3.4-5.0) Albumin/Globulin Ratio 0.5 (1.0-1.7) Assessment and Plan Assessmemt and Plan Problems Medical Problems: (1) Acute respiratory failure due to COVID-19 Status: Acute (2) Adrenal nodule Status: Acute (3) COVID-19 Status: Acute Comment Review of Relevant I have reviewed the following items lisa (where applicable) has been applied. Justifications for Admission Other Justification RACHAEL LAGUNA MD Jul 09, 2021 06:47
[2021-07-09 07:00] VITALS: BP 140/70
--- NOTE | 2021-07-09 08:31 | PDOC ---
PULMONARY PROGRESS NOTES DATE: 07/09/21 TIME: 08:30 Subjective Patient asleep I did not wake him up no respiratory distress no Vitals Vital Signs Date Time Temp Pulse Resp B/P (MAP) Pulse Ox O2 Delivery O2 Flow Rate FiO2 07/09/21 07:00 97.3 69 20 140/70 (93) 95 Nasal Cannula 6.0 97.3 Comments Visual exam done due to COVID-19 pneumonia. No obvious respiratory distress. No obvious skin rash no leg edema General: No acute distress Lungs: Other (Increased work of breathing) Labs Laboratory Tests Test 07/08/21 07:45 White Blood Count 7.1 x10^3/uL (4.0-11.0) Red Blood Count 4.32 x10^6/uL (4.30-5.70) Hemoglobin 13.8 g/dL (13.0-17.5) Hematocrit 39.9 % (39.0-53.0) Mean Corpuscular Volume 92 fL (79-100) Mean Corpuscular Hemoglobin 32 pg (25-35) Mean Corpuscular Hemoglobin Concent 35 g/dL (31-37) Red Cell Distribution Width 13.6 % (11.5-14.5) Platelet Count 178 x10^3/uL (140-400) Neutrophils (%) (Auto) 69 % (31-73) Lymphocytes (%) (Auto) 17 % (24-48) Monocytes (%) (Auto) 10 % (0-9) Eosinophils (%) (Auto) 3 % (0-3) Basophils (%) (Auto) 1 % (0-3) Neutrophils # (Auto) 4.9 x10^3/uL (1.8-7.7) Lymphocytes # (Auto) 1.2 x10^3/uL (1.0-4.8) Monocytes # (Auto) 0.7 x10^3/uL (0.0-1.1) Eosinophils # (Auto) 0.2 x10^3/uL (0.0-0.7) Basophils # (Auto) 0.1 x10^3/uL (0.0-0.2) Sodium Level 140 mmol/L (136-145) Potassium Level 4.3 mmol/L (3.5-5.1) Chloride Level 105 mmol/L (98-107) Carbon Dioxide Level 30 mmol/L (21-32) Anion Gap 5 (6-14) Blood Urea Nitrogen 12 mg/dL (8-26) Creatinine 0.7 mg/dL (0.7-1.3) Estimated GFR (Cockcroft-Gault) 110.5 BUN/Creatinine Ratio 17 (6-20) Glucose Level 98 mg/dL (70-99) Calcium Level 8.1 mg/dL (8.5-10.1) Total Bilirubin 0.9 mg/dL (0.2-1.0) Aspartate Amino Transf (AST/SGOT) 19 U/L (15-37) Alanine Aminotransferase (ALT/SGPT) 55 U/L (16-63) Alkaline Phosphatase 69 U/L (46-116) Total Protein 6.3 g/dL (6.4-8.2) Albumin 2.0 g/dL (3.4-5.0) Albumin/Globulin Ratio 0.5 (1.0-1.7) Medications Active Scripts Medications Dose Route/Sig Max Daily Dose Days Date Category Tadalafil 5 Mg Tablet 5 Mg PO DAILY 06/23/21 Reported Flomax (Tamsulosin Hcl) 0.4 Mg Cap.er.24h 0.4 Mg PO HS 06/23/21 Reported Atorvastatin Calcium 40 Mg Tablet 40 Mg PO HS 06/23/21 Reported Comments CTA chest reviewed COVID pneumonia Impression . 1. Acute hypoxemic respiratory failure, acute, secondary to COVID-19 viral pneumonia./ARDS 2. COVID-19 viral pneumonia. Status post remdesivir 3. Abnormal x-ray. 4. CTA revealed no evidence of pulmonary emboli. 5. non smoker 6. Abnormal liver function test with mildly increased bilirubin. Plan . Updated 07/09 6-minute walk Discharge Follow-up in the office in updated 07/[address] Husain Possible discharge 6-minute walk Patient to follow-up with me in August FOREIGN BYRD MD Jul 09, 2021 08:31
[2021-07-09] MEDS: LACTOBACILLUS RHAMNOSUS GG 1 CAPSULE. PO SCH (09:09)
[2021-07-09] MEDS: IPRATROPIUM/ALBUTEROL 20/100mcg/INH INHALER. INH SCH ×2 (09:09→13:55)
[2021-07-09] MEDS: ZINC SULFATE 220 MG CAPSULE. PO SCH (09:09)
[2021-07-09] MEDS: PANTOPRAZOLE 40 MG TABLET.DR. PO SCH (09:09)
[2021-07-09] MEDS: ASCORBIC ACID 1,000 MG TABLET PO SCH ×2 (09:09→13:55)
[2021-07-09] MEDS: THIAMINE 100 MG TABLET. PO SCH (09:09)
[2021-07-09 11:00] VITALS: BP 119/67
[2021-07-09] MEDS ORDERED: GUAI120L35 PO (12:58)
[2021-07-09] MEDS ORDERED: PANT40TA77 PO (12:58)
[2021-07-09] MEDS ORDERED: IPRA4AER INH (12:58)
--- NOTE | 2021-07-09 13:01 | SNU/HH DC ---
DISCHARGE WITH HOME HEALTH DISCHARGE INFORMATION: Discharge Date: Jul 09, 2021 Final Diagnosis: Problems Medical Problems: (1) Acute respiratory failure due to COVID-19 Status: Acute (2) Adrenal nodule Status: Acute (3) COVID-19 Status: Acute Condition on Discharge: Stable CODE STATUS: Code Status: DNR/DNI HOME HEALTH: Face to Face: I certify this patient is under my care and that I, or a nurse practitioner or physician's fitness assistant working with me, had a face to face encounter that meets the physician face to face encounter requirements with this patient on 07/09/2021. Medical Complications: HTN Long-Term For: Diabetic Care, Medication Management RN For Eval/Treatment: Yes Physical Therapy For: Evalulation/Treatment Occupational Therapy For: Evaluation/Treatment Pt Meets Homebound Status: Unsteady balance w/ amb,, Extreme weakness w/ amb. POST DISCHARGE ORDERS: Activity Instructions for Disc: Resume previous activity Weight Bearing Status after Di: Full weight bearing DIET AFTER DISCHARGE: Regular FOLLOW-UP: Additional Instructions: Yuli Ospina, and Angela [address], [address] [place] [address] TREATMENT/EQUIPMENT ORDERS: Adaptive Equipment Issued: Front wheeled walker Discharge Respiratory Equipmen: Oxygen, MDI CERTIFICATION STATEMENT: Certification Statement: Certification Statement: Based on the above finding, I certify that this patient is confined to the home and needs intermittent [facility] care, physical therapy and/or speech therapy, or continues to need occupational therapy.~ This patient is under my care, and I have initiated the establishment of the plan of care.~ This patient will be followed by myself or a community physician who will periodically review the plan of care. Home Meds Active Scripts Pantoprazole Sodium (PANTOPRAZOLE SODIUM ) 40 Mg Tablet., 40 MG PO DAILYAC for GERD for 30 Days, #30 TAB.SR Prov:RACHAEL LAGUNA MD 07/09/21 Guaifenesin/Codeine Phosphate (Codeine-Guaifen 10-100 mg/5 ml) 120 Ml Liquid, 5 ML PO PRN Q6HRS PRN for COUGH for 6 Days, #90 ML Prov:RACHAEL LAGUNA MD 07/09/21 Ipratropium/Albuterol Sulfate (COMBIVENT RESPIMAT INHAL) 4 Gm Aer.w.adap, 1 PUFF INH RTQID for Bronchitis for 30 Days, #1 INH Prov:RACHAEL LAGUNA MD 07/09/21 Reported Medications Tadalafil (Tadalafil) 5 Mg Tablet, 5 MG PO DAILY for BPH 06/23/21 Tamsulosin Hcl (FLOMAX) 0.4 Mg Cap.er.24h, 0.4 MG PO HS for BPH 06/23/21 Atorvastatin Calcium (ATORVASTATIN CALCIUM) 40 Mg Tablet, 40 MG PO HS for HLD 06/23/21 RACHAEL LAGUNA MD Jul 09, 2021 13:01
--- NOTE | 2021-07-09 13:07 | PDOC3 ---
Discharge Summary Visit Information Date of Admission: Jun 22, 2021 Date of Discharge: Jul 09, 2021 Admitting Diagnosis: COVID 19 with ARDS Final Diagnosis Problems Medical Problems: (1) Acute respiratory failure due to COVID-19 Status: Acute (2) Adrenal nodule Status: Acute (3) COVID-19 Status: Acute Brief Hospital Course Allergies Allergies Coded Allergies Type Severity Reaction Last Updated Verified No Known Drug Allergies 06/22/21 No Vital Signs Vital Signs Date Time Temp Pulse Resp B/P (MAP) Pulse Ox O2 Delivery O2 Flow Rate FiO2 07/09/21 11:00 97.5 64 20 119/67 (84) 96 Nasal Cannula 6.0 97.5 Lab Results Laboratory Tests Test 07/08/21 07:45 White Blood Count 7.1 x10^3/uL (4.0-11.0) Red Blood Count 4.32 x10^6/uL (4.30-5.70) Hemoglobin 13.8 g/dL (13.0-17.5) Hematocrit 39.9 % (39.0-53.0) Mean Corpuscular Volume 92 fL (79-100) Mean Corpuscular Hemoglobin 32 pg (25-35) Mean Corpuscular Hemoglobin Concent 35 g/dL (31-37) Red Cell Distribution Width 13.6 % (11.5-14.5) Platelet Count 178 x10^3/uL (140-400) Neutrophils (%) (Auto) 69 % (31-73) Lymphocytes (%) (Auto) 17 % (24-48) Monocytes (%) (Auto) 10 % (0-9) Eosinophils (%) (Auto) 3 % (0-3) Basophils (%) (Auto) 1 % (0-3) Neutrophils # (Auto) 4.9 x10^3/uL (1.8-7.7) Lymphocytes # (Auto) 1.2 x10^3/uL (1.0-4.8) Monocytes # (Auto) 0.7 x10^3/uL (0.0-1.1) Eosinophils # (Auto) 0.2 x10^3/uL (0.0-0.7) Basophils # (Auto) 0.1 x10^3/uL (0.0-0.2) Sodium Level 140 mmol/L (136-145) Potassium Level 4.3 mmol/L (3.5-5.1) Chloride Level 105 mmol/L (98-107) Carbon Dioxide Level 30 mmol/L (21-32) Anion Gap 5 (6-14) Blood Urea Nitrogen 12 mg/dL (8-26) Creatinine 0.7 mg/dL (0.7-1.3) Estimated GFR (Cockcroft-Gault) 110.5 BUN/Creatinine Ratio 17 (6-20) Glucose Level 98 mg/dL (70-99) Calcium Level 8.1 mg/dL (8.5-10.1) Total Bilirubin 0.9 mg/dL (0.2-1.0) Aspartate Amino Transf (AST/SGOT) 19 U/L (15-37) Alanine Aminotransferase (ALT/SGPT) 55 U/L (16-63) Alkaline Phosphatase 69 U/L (46-116) Total Protein 6.3 g/dL (6.4-8.2) Albumin 2.0 g/dL (3.4-5.0) Albumin/Globulin Ratio 0.5 (1.0-1.7) Brief Hospital Course Patient is a 71-year-old male with past medical history BPH, HLD, who presents to the ED with complaints of worsening shortness of breath over the past 3 days. He reports associated productive cough and lethargy. At home patient's was concerned due to worsening shortness of breath and noted confusion, so she brought him to the ED for further evaluation. On arrival he was hypoxic on room air, which improved to 95% with 15 L nonrebreather. Labs on admission showed CRP 68.5, AST 118, ALT 83, albumin 2.9, D-dimer 1.74. Chest x-ray showed extensive bilateral patchy airspace disease. CT head showed mild small vessel ischemic changes. CTA chest showed bilateral adrenal nodules, extensive bilater al patchy groundglass changes concerning for viral process, negative for PE. He received steroids and broad-spectrum IV antibiotics in ED. Will admit patient for further medical management. 06/24/2021: Afebrile, resting comfortably in bed, currently breathing on 15 L nasal cannula. Appreciate pulmonology recommendations and management of this patient. We will continue remdesivir to complete 5-day course (last day should be 06/26/2021). Continue steroids for 10-day course, with slow taper. Continue empiric antibiotics. 06/25/2021: Afebrile. Still breathing on 15 L nasal cannula. Last day remdesivir should be tomorrow. Continue empiric antibiotics. Continue steroids to complete a 10-day course with slow taper. 06/26/2021: Afebrile, requiring 15 L nonrebreather. Last dose of remdesivir yesterday. Continue empiric antibiotics and steroids to complete 10-day course (will begin slow Decadron taper 07/03) continue supportive care. 06/27/2021: Patient remains on 15 L nonrebreather. Afebrile. S/P remdesivir. Chest x-ray this morning showed worsening nearly diffuse bilateral pulmonary infiltrates, consistent with known COVID 19 pneumonia. Continue empiric antibiotics; will obtain procalcitonin. Continue steroids to complete 10-day course (with slow Decadron taper to begin 07/03). Continue supportive care. 06/28/2021: Afebrile. States he is not feeling well this morning, having difficulty catching his breath. Breathing on 15 L nonrebreather. Discussed with patient that if his oxygen saturation stayed in low 90s to upper 80s that he would likely benefit from BiPAP, and patient is agreeable. Continue steroids and empiric antibiotics. S/P remdesivir. 06/29/2021: Afebrile. Remains on 15 L nonrebreather. States he is breathing slightly better than yesterday. S/P remdesivir. Procalcitonin yesterday <0.10; will discontinue Rocephin and continue empiric treatment with p.o. azithromycin. Continue steroids to complete 10-day course (07/03). 06/30: No acute events overnight. Patient seen examined bedside. Saturating low 90s on 15 L nonrebreather and nasal cannula. Consider transfer to the ICU. 07/01:No acute events overnight. Afebrile. Saturating 92% on 10 L nonrebreather. No dyspnea upon my exam. Patient seen and examined bedside. Patient's chart, labs, images were reviewed and discussed with RN 07/02: No acute events overnight. Patient seen and examined bedside. Saturating 96% on 15 L nonrebreathing mask. Resting comfortably in bed without any dyspnea or more short of breath. Patient's chart, labs, images were reviewed and discussed with RN 07/03: No acute events overnight. Patient seen and examined bedside. Still saturating 95% on 15 L nonrebreather mask. Completed 10-day course of steroids and Remdesivir. Continue with O2 support. Afebrile in last 24 hours. Will discuss with pulmonology. 07/04: No acute events overnight. Patient seen and examined bedside. Patient saturating 94% on 15 L nasal cannula and as needed nonrebreather. Possible LTAC placement pending. Not more short of. No concerns nursing. 07/05: No acute events overnight. Patient seen and visually examined bedside. Patient saturating 95% on 3 L nasal cannula. No dyspnea. No concerns nursing. Patient's chart, labs, images were reviewed and discussed with RN 07/06: No acute events overnight. Patient saturating 97% on 10 L nasal cannula improving oxygenation and may be able to discharge within the next 24 to 48 h ours if continues to improve. Patient's chart, labs, images were reviewed and discussed with RN 07/07: No overnight events. Afebrile. He is feeling profoundly weak and asking if he need assistance to get up out of bed. O2 saturations 93% on 8 L/min nasal cannula O2. 07/08: No overnight events. Afebrile. O2 saturations 90% on 6 L/min nasal cannula O2. Still feeling very weak as compared to preoperatively. Labs reviewed LFTs normalized WBC normalized. No overnight events. Afebrile. O2 saturations 92% on 2 L/min. Awaiting 6- minute walk currently. Able to ambulate with 2 wheeled walker with therapy recommends home with home health. Plan for discharge home today have discussed with pulmonology. Consults: Pulmonology Problem list: Acute respiratory failure with hypoxia COVID-19 pneumonia Bilateral adrenal nodules Transaminitis Severe protein calorie malnutrition BPH HLD FEN - Cardiac diet CODE - DNR Dispo - Home with home health Surrogate decision maker is his (Jordan Farfan) Greater than 30 minutes spent on d/c home with home health and home O2 Discharge Information Condition at Discharge: Improved Follow Up: Weeks (1) Disposition/Orders: D/C to Home w/ HH Scheduled Atorvastatin Calcium (Atorvastatin Calcium) 40 Mg Tablet, 40 MG PO HS for HLD, (Reported) Entered as Reported by: DAYANA GUNTER on 9/27/21 0001 Last Action: Continued on 06/23/21627 by ERIK LIU MD Ipratropium/Albuterol Sulfate (Combivent Respimat Inhal) 4 Gm Aer.w.adap, 1 PUFF INH RTQID for Bronchitis for 30 Days, #1 Prescribed by: RACHAEL LAGUNA MD on 07/09/21 1258 Pantoprazole Sodium (Pantoprazole Sodium ) 40 Mg Tablet.dr, 40 MG PO DAILYAC for GERD for 30 Days, #30 Prescribed by: RACHAEL LAGUNA MD on 07/09/21 1258 Tadalafil (Tadalafil) 5 Mg Tablet, 5 MG PO DAILY for BPH, (Reported) Entered as Reported by: DAYANA GUNTER on 06/23/212020 Last Action: New Order on 06/23/212020 by DAYANA GUNTER Tamsulosin Hcl (Flomax) 0.4 Mg Cap.er.24h, 0.4 MG PO HS for BPH, (Reported) Entered as Reported by: DAYANA GUNTER on 06/23/212020 Last Action: Continued on 06/23/21627 by ERIK LIU MD Scheduled PRN Guaifenesin/Codeine Phosphate (Codeine-Guaifen 10-100 mg/5 ml) 120 Ml Liquid, 5 ML PO PRN Q6HRS PRN for COUGH for 6 Days, #90 Prescribed by: RACHAEL LAGUNA MD on 07/09/21 1259 Justicifation of Admission Dx: Justifications for Admission: Justification of Admission Dx: Yes Respiratory Failure: Severe Resp Distress RACHAEL LAGUNA MD Jul 09, 2021 13:07
[2021-07-09 15:00] VITALS: BP 128/69
--- NOTE | 2021-07-09 17:40 | NUR ---
Discharge Note: KEEGAN CAMEJO Discharge instructions and discharge home medications reviewed with Patient and spouse and a copy given. All questions have been answered and understanding verbalized. The following instructions and handouts were given: discharge instructions, new prescriptions, education and follow up recommendations. Discontinued lines and drains: Peripheral IV discontinued intact. Patient discharged to Home w/services with Spouse via Wheelchair off unit by this RN.
== END 2021-07-09 17:40 | disposition home health service (06) | DRG 177 ==
LOC: ER 18:05 → 5 NORTH 19:30
PROVIDERS: ADMIT Internal Medicine; ATTEND Internal Medicine
PROC: XW033E5 Introduction of Remdesivir Anti-infective into Peripheral Vein, Percutaneous Approach, New Technology Group 5 (ICD-10-PCS; principal; 2021-06-22)
PROC: 5A0935A Assistance with Respiratory Ventilation, Less than 24 Consecutive Hours, High Flow/Velocity Cannula (ICD-10-PCS; 2021-06-30)
DX: U07.1 COVID-19 (principal); J12.82 Pneumonia due to coronavirus disease 2019; E43 Unspecified severe protein-calorie malnutrition; J80 Acute respiratory distress syndrome; Z66 Do not resuscitate; E27.8 Other specified disorders of adrenal gland; E78.5 Hyperlipidemia, unspecified; N40.0 Benign prostatic hyperplasia without lower urinary tract symptoms; Z82.49 Family history of ischemic heart disease and other diseases of the circulatory system; Z68.29 Body mass index [BMI] 29.0-29.9, adult
CPT/HCPCS: 36415; 36600; 70450; 71045; 71275; 80048; 80053; 80076; 81001; 82803; 82805; 83605; 83735; 83880; 84100; 84145; 84484; 85007; 85025; 85379; 86140; 87040; 87426; 93005; 94618; 96365; 96375; C9113; J0456; J0696; J1100; J1650; J2405; J2930; J3490; J7050; Q9967; 97116-GP; 97535-GO; 99285-25; G0378; J7030

== ENCOUNTER → 2021-09-10 | Outpatient (CLI) | payer MEDICARE, BC ==
[~2021-09-10] MED LIST: ATOR40TA59 PO; GUAI120L35 PO; IPRA4AER INH; PANT40TA77 PO; TADA5TAB12 PO; TAMS0.4C97 PO
--- NOTE | 2021-09-10 16:48 | RAD ---
XR CHEST 2V History: Reason: COVID-19 ON 2020. / Spl. Instructions: / History: Comparison: June 27, 2021 Findings: Decreased multifocal consolidations bilaterally. Mild residual ill-defined opacities. No pleural effu deepak. No pneumothorax. Unchanged heart size. Impression: 1. Decreased bilateral consolidations with mild residual opacities. Electronically signed by: Ronnie Gilmore DO (09/10/2021 4:46 PM) [id number]
== END ==
LOC: RAD 12:21
PROVIDERS: ATTEND Internal Medicine Critical Care Medicine
DX: U07.1 COVID-19 (principal)
CPT/HCPCS: 71046

== ENCOUNTER → 2021-09-24 | Outpatient (CLI) | payer MEDICARE, BC | LOC: PF 09:45 | PROVIDERS: ATTEND Internal Medicine Critical Care Medicine | DX: R06.02 Shortness of breath (principal) | CPT/HCPCS: 94060; 94640; 94729; 94664 ==

== ENCOUNTER → 2021-12-10 | Outpatient (CLI) | payer MEDICARE, BC ==
--- NOTE | 2021-12-10 15:37 | RAD ---
EXAM: Chest, 2 views. HISTORY: Pneumonia. Covid 19. COMPARISON: 09/10/2021 FINDINGS: 2 views of the chest are obtained. There is stable coarse diffuse increased interstitial op acity. There is no consolidation, pleural effusion or pneumothorax. The heart is normal in size. IMPRESSION: Stable coarse diffuse increased interstitial opacity due to persistent interstitial infil trate or chronic interstitial changes. Electronically signed by: Melvi Rodriguez MD (12/10/2021 3:35 PM) [id number]
== END ==
LOC: RAD 15:10
PROVIDERS: ATTEND Internal Medicine Critical Care Medicine
DX: R91.8 Other nonspecific abnormal finding of lung field (principal); J12.82 Pneumonia due to coronavirus disease 2019
CPT/HCPCS: 71046